=== PATIENT | male | born 1945 | race Caucasian/White ===

== ENCOUNTER 2018-12-18 11:46 | Day surgery (SDC) | payer OTHER ==
[2018-12-13 13:29] VITALS: BMI 25.9
[~2018-12-18 11:46] MED LIST: DEXAMETHASONE SOD PHOSPHATE 10 MG/ML 1 ML VIAL IV ONE; LACTATED RINGERS 1,000 ML IV SCH; ONDANSETRON 4 MG/2 ML VIAL IVP ONE; SCOPOLAMINE 1.5MG/72HR PATCH TRANSDERM ONE; ceFAZolin IN SWFI 2 GM/20 ML SYRINGE IVP ONE; metroNIDAZOLE-NS PMX 500 MG in SALINE 1 100ML.BAG IVPB ONE
[2018-12-18] MEDS ORDERED: LIDOCAINE 1% 20 ML VIAL (10MG/ML) FOR IV START INTRADERMA ONE (12:36)
[2018-12-18] MEDS ORDERED: fentaNYL (PF) 50 MCG/ML 2 ML AMP ONE (12:57)
[2018-12-18] MEDS ORDERED: SUCCINYLCHOLINE CHLORIDE 100 MG/5 ML SYR IV ONE (12:57)
[2018-12-18] MEDS ORDERED: ePHEDrine SULFATE/0.9% NACL/PF 50 MG/5 ML SYRINGE IV ONE (12:57)
[2018-12-18] MEDS ORDERED: NEOSTIGMINE 1 MG/ML 10 ML VIAL ONE (12:57)
[2018-12-18] MEDS ORDERED: LIDOCAINE 1% INJ 10MG/ML (20 ML MDV) ONE (12:57)
[2018-12-18] MEDS ORDERED: PROPOFOL 10 MG/ML 20 ML VIAL IV ONE (12:57)
[2018-12-18] MEDS ORDERED: MIDAZOLAM 2 MG/2 ML VIAL ONE (12:57)
[2018-12-18] MEDS ORDERED: PHENYLEPHRINE-0.9% NACL SYG 1 MG/10 ML SYRINGE ONE (12:57)
[2018-12-18] MEDS ORDERED: DEXAMETHASONE SOD PHOS (MDV) 100 MG/10 ML VIAL ONE (12:57)
[2018-12-18] MEDS ORDERED: ROCURONIUM BROMIDE 10 MG/ML 10 ML VIAL IV ONE (12:57)
[2018-12-18] MEDS ORDERED: GLYCOPYRROLATE 0.2 MG/ML 2 ML VIAL ONE (12:57)
[2018-12-18] MEDS ORDERED: LIDOCAINE 2%-EPI 1:200,000 20 ML VIAL SUBMUCOSAL ONE (13:39)
[2018-12-18] MEDS ORDERED: LACTATED RINGERS 1,000 ML IV ONE (14:03)
[2018-12-18 15:15] VITALS: TEMP 98
[2018-12-18] MEDS: HYDROmorphone 0.5 MG/0.5 ML SYRINGE IVP PRN ×4 (15:50→16:22)
[2018-12-18 16:05] VITALS: RESP 16
[2018-12-18 16:39] VITALS: BP 154/73; PULSE 87
--- NOTE | 2018-12-18 17:07 | OP ---
OPERATIVE REPORT DATE OF PROCEDURE: 12/18/2018. PREOPERATIVE DIAGNOSES: 1. Bilateral mandibular milagros. 2. Maxillary right and left buccal exostoses. 3. Right and left buccal mandibular exostoses. 4. Maxillary and mandibular bilateral alveolar irregularities. POSTOPERATIVE DIAGNOSES: 1. Bilateral mandibular milagros. 2. Maxillary right and left buccal exostoses. 3. Right and left buccal mandibular exostoses. 4. Maxillary and mandibular bilateral alveolar irregularities. PROCEDURE PERFORMED: 1. Removal of the right and left mandibular milagros. 2. Removal of the maxillary right and left buccal exostoses. 3. Removal of the right and left mandibular buccal exostoses. SURGEON: Dr. Mckinney. ANESTHESIA: General via nasal endotracheal intubation. ESTIMATED BLOOD LOSS: 10 mL. FLUIDS: Crystalloid. DRAINS: None. SPECIMENS: None. COMPLICATIONS: None. INDICATIONS FOR PROCEDURE: The patient is a 73-year-old male who was evaluated in the office for irregularities of the maxillary and mandibular alveoli. The patient states that he had oral surgery at the [facility] whereby they attempted to remove the buccal exostoses and mandibular milagros. He states that the job was not completed secondary to intraoperative bleeding. He will now undergo removal of these irregularities of bone prior to fabrication of his axillary mandibular dentures. The risks, benefits, and alternatives of the procedure were reviewed with the patient at length and all of his questions answered to his satisfaction. PROCEDURE IN DETAIL: The patient was taken the operating room and placed on the operating table in the supine position. Next the patient was induced via the IV route and the patient was intubated through the right naris with the aid of a glide scope. Once the tube was in the proper position and it was secured and a general plane of anesthesia was maintained throughout the operative course. The surgeon then approached the operative field and the patient was prepped and draped in usual manner for this procedure. A throat pack was placed notifying both Nursing and Anesthesia. Next 8 mL of 2% lidocaine with 1 to 200,000 parts epinephrine was used to provide a right and left inferior alveolar nerve block buccal block and lingual block in addition to the maxillary buccal and facial infiltration into the vestibule and onto the palate. After waiting an adequate period of time for the local to take effect, a 15 blade was utilized to develop a buccal and lingual flap in the right mandibular quadrant. A subperiosteal dissection ensued and the irregularities of bone and milagros were revealed. At this point, rotary instrumentation was used to remove the milagros and exostoses in addition to any bony irregularities. The wound was then irrigated thoroughly and closed utilizing 4-0 gut in an interrupted manner. Attention was then directed to the upper right quadrant where a crestal incision was made extending from the tuberosity to the midline and a subperiosteal dissection ensued buckling and palatally. The buccal exostoses were then removed utilizing rotary instrumentation under copious irrigation. Once the wound was irrigated thoroughly, the flap was reapproximated utilizing 4 0 gut in an interrupted and running manner. Attention then was directed to the lower left quadrant where a crystal incision was then developed extending from the retromolar pad to the midline and a similar technique with rotary instrumentation was used to remove the bony irregularities. The wound was then irrigated and closed in a similar fashion. Attention was then directed to the upper left, where a similar technique was used to remove the bony irregularities and primary closure of the flap was once again achieved. At this point, no bleeding was noted intraoperatively. The incisions were dry. The throat pack was removed notifying both Nursing and Anesthesia. The patient was then transferred to the postanesthetic care unit breathing spontaneously and hemodynamically stable. MMHAYESL / LAURAN: [id number] / MTDChester
== END 2018-12-18 16:53 | disposition home or self-care (01) ==
LOC: OR 11:46
PROVIDERS: ATTEND Dentist Oral and Maxillofacial Surgery
DX: M27.0 Developmental disorders of jaws (principal); K08.89 Other specified disorders of teeth and supporting structures; I10 Essential (primary) hypertension; M79.7 Fibromyalgia; Z79.899 Other long term (current) drug therapy; Z79.891 Long term (current) use of opiate analgesic; Z79.1 Long term (current) use of non-steroidal anti-inflammatories (NSAID)
CPT/HCPCS: 21031; 21032; J2250; J1100 ×2; J2710; J2405; J2001; J3010; J2370; J0330; J2704; J1170

== ENCOUNTER 2020-05-15 10:51 | Day surgery (SDC) | payer OTHER ==
[2020-05-14 10:44] VITALS: BMI 25.7
[~2020-05-15 10:51] MED LIST changes: -DEXAMETHASONE SOD PHOSPHATE 10 MG/ML 1 ML VIAL IV ONE; +LIDOCAINE 1% (10MG/ML) FOR IV START INTRADERMA PRN; -ONDANSETRON 4 MG/2 ML VIAL IVP ONE; -SCOPOLAMINE 1.5MG/72HR PATCH TRANSDERM ONE; -ceFAZolin IN SWFI 2 GM/20 ML SYRINGE IVP ONE; -metroNIDAZOLE-NS PMX 500 MG in SALINE 1 100ML.BAG IVPB ONE
[2020-05-15 11:28] VITALS: RESP 16; TEMP 97.8
[2020-05-15] MEDS ORDERED: PROPOFOL 10 MG/ML 20 ML VIAL IV ONE (12:10)
[2020-05-15] MEDS ORDERED: LIDOCAINE 1% INJ 10MG/ML (20 ML MDV) ONE (12:10)
--- NOTE | 2020-05-15 12:58 | P.PCN ---
Date of Procedure: 05/15/20 Description of Procedure: BRIEF HISTORY: Patient is a 75-year-old male presented for outpatient colonoscopy for personal history of colon polyps. Remote history of colonoscopy. Denies any change in bowel habits or blood per rectum. PROCEDURE PERFORMED: Colonoscopy with polypectomy. PREOPERATIVE DIAGNOSIS: Personal history of colon polyps, remote history of colonoscopy. ESTIMATED BLOOD LOSS: Minimal. IV sedation per Anesthesia. PROCEDURE: After informed consent was obtained, the patient, was brought into the endoscopy unit. IV sedation was administered by Anesthesia under continuous monitoring. Digital rectal examination was normal. Initially the Olympus CF-190 flexible video colonoscope was then inserted in the rectum, gradually advanced into the cecum without any difficulty. Careful examination was performed as the scope was gradually being withdrawn. Ileocecal valve and the appendiceal orifice were visualized and appeared normal. Prep was excellent. Mucosa of the cecum, ascending colon, transverse colon, descending colon, sigmoid colon, and rectum appeared normal. Small largemouth diverticula throughout the left colon. Moderate internal hemorrhoids. 5 mm transverse colon polyp removed with cold snare polypectomy. Diminutive polyps measuring 2-3 mm removed from the ascending colon, splenic flexure and descending colon with cold forcep polypectomy. 3 rectal polyps measuring 3, 4 and 5 mm in size removed with cold snare polypectomy Retroflexion was performed in the rectum and no lesions were seen. The patient tolerated the procedure well. IMPRESSION: For medium size polyp removed with cold snare polypectomy from the transverse colon and 3 from the rectum. 3 diminutive polyps removed with cold forcep polypectomy from the ascending colon, splenic flexure and descending colon. Mild left colonic diverticulosis. Internal hemorrhoids. RECOMMENDATIONS: Findings of this examination were discussed with the patient . Okay to resume diet. Okay to resume medications. Await pathology from polypectomies. Recommend repeat colonoscopy in 3 years for high risk colon polyps pending pathology from polypectomies.
[2020-05-15 13:24] VITALS: BP 136/66; PULSE 72
== END 2020-05-15 14:03 | disposition home or self-care (01) ==
LOC: ORWHC2ENDO 10:51
PROVIDERS: ATTEND Internal Medicine
DX: Z12.11 Encounter for screening for malignant neoplasm of colon (principal); D12.2 Benign neoplasm of ascending colon; D12.4 Benign neoplasm of descending colon; D12.3 Benign neoplasm of transverse colon; D12.8 Benign neoplasm of rectum; K62.1 Rectal polyp; K57.30 Diverticulosis of large intestine without perforation or abscess without bleeding; K64.8 Other hemorrhoids; I10 Essential (primary) hypertension; F17.200 Nicotine dependence, unspecified, uncomplicated; G89.29 Other chronic pain; Z91.048 Other nonmedicinal substance allergy status; Z86.010 Personal history of colon polyps; Z98.890 Other specified postprocedural states; Z79.899 Other long term (current) drug therapy; Z79.891 Long term (current) use of opiate analgesic; Z79.1 Long term (current) use of non-steroidal anti-inflammatories (NSAID); Z87.19 Personal history of other diseases of the digestive system; Z90.89 Acquired absence of other organs; Z98.41 Cataract extraction status, right eye; Z98.42 Cataract extraction status, left eye; Z97.2 Presence of dental prosthetic device (complete) (partial)
CPT/HCPCS: 88305; 45380; 45385; J2001; J2704

== ENCOUNTER → 2021-11-24 | Outpatient (CLI) | payer MEDICARE ==
[2021-11-24 10:06] LABS: African American GFR (CKD) >90 (>60 ml/min/1.73 sqM); Blood Urea Nitrogen 19 mg/dL (9-20); Non-African American GFR(CKD) >90 (>60 ml/min/1.73 sqM)
== END | disposition home or self-care (01) ==
LOC: RADCTMAIN 08:49
PROVIDERS: ATTEND Urology
DX: R31.0 Gross hematuria (principal)
CPT/HCPCS: 82565; 84520

== ENCOUNTER 2021-12-12 10:48 | Emergency (ER) | payer MEDICARE ==
[2021-12-12 10:53] VITALS: BP 141/74; PULSE 97; RESP 18; TEMP 97.6
--- NOTE | 2021-12-12 11:13 | ED ---
General Adult HPI - General Chief complaint: Recheck/Abnormal Lab/Rx Stated complaint: catheter plugged Time Seen by Provider: 12/12/21 10:55 Source: patient, RN notes reviewed, old records reviewed Mode of arrival: ambulatory Limitations: no limitations - History of Present Illness Initial comments: This is a 76-year-old male who presents emergency Department. Patient states he had Montgomery catheter placed yesterday after he had a bladder tumor resected. Patient states this morning the catheter is no longer draining and so he comes into the emergency department to have it irrigated and/or possibly replace. Patient states started on Keflex states 3 out of 7 on that. Patient denies any new back pain patient denies any fever chills. Patient denies any abdominal pain. - Related Data Home Medications Medication Instructions Recorded Confirmed Celecoxib [CeleBREX] 200 mg PO HS 12/13/18 05/15/20 DULoxetine HCL [Cymbalta] 30 mg PO TID 12/13/18 05/15/20 Diltiazem HCl [Diltiazem 12Hr ER] 120 mg PO BID 12/13/18 05/15/20 HYDROcodone/APAP 10-325MG [[place] 2 tab PO TID 12/13/18 05/15/20 10-325] Sennosides [Senokot] 17.2 mg PO HS 12/13/18 05/15/20 Vit C/E/Zn/Coppr/Lutein/Zeaxan 1 each PO BID 12/13/18 05/15/20 [Preservision Areds 2 Softgel] Brimonidine Eye Drop 1 drop BOTH EYES QA 05/14/20 05/15/20 Calcium Carbonate/Vitamin D3 1 each PO DAILY 05/14/20 05/15/20 [Calcium 500-Vit D3 200 Tablet] Cortisone Cream 1 % 1 applicate TOPICAL DIRECTED 05/14/20 05/15/20 Gabapentin [Neurontin] 300 mg PO TID 05/14/20 05/15/20 Latanoprost/Pf [Latanoprost 0.005% 1 drop BOTH EYES HS 05/14/20 05/15/20 Eye Drop] Miralax Powder 1 applicate PO HS 05/14/20 05/15/20 Nicotine Polacrilex [Nicotine Gum] 2 mg BUCCAL DIRECTED 05/14/20 05/15/20 Sildenafil Citrate [Viagra] 100 mg PO ONCE PRN 05/14/20 05/15/20 Allergies Allergy/AdvReac Type Severity Reaction Status Date / Time nicotine patch AdvReac cardiac Uncoded 05/15/20 11:27 issues Review of Systems ROS Statement: Those systems with pertinent positive or pertinent negative responses have been documented in the HPI. ROS Other: All systems not noted in ROS Statement are negative. 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", has protruding abdomen due to loss of muscle tissue, scoliosis, frequent falls History of Any Multi-Drug Resistant Organisms: None Reported Past Surgical History: Hernia Repair, Tonsillectomy Additional Past Surgical History / Comment(s): kimmie cataracts, two bone marrow biopsies, kimmie blepharoplasty, oral surgery for dental extractions (that caused damage to lower palate), rt inguinal hernia, Past Anesthesia/Blood Transfusion Reactions: No Reported Reaction Additional Past Anesthesia/Blood Transfusion Reaction / Comment(s): can not lay prone or supine due to DISH Past Psychological History: Depression, PTSD Smoking Status: Current every day smoker - Past Family History Father Family Medical History: Unable to Obtain Mother Family Medical History: Cancer Additional Family Medical History / Comment(s): breast Brother(s) Family Medical History: Cancer Additional Family Medical History / Comment(s): prostate General Exam - General Exam Comments Initial Comments: GENERAL: Patient is well-developed and well-nourished. Patient is nontoxic and well- hydrated and is in no acute distress. EYES: The sclera were anicteric and conjunctiva were pink and moist. Extraocular movements were intact and pupils were equal round and reactive to light. ABDOMEN: Soft and nontender with normal bowel sounds. SKIN: Skin is clear with no lesions or rashes and otherwise unremarkable. NEUROLOGIC: Patient is alert and oriented x3. Cranial nerves II through XII are grossly intact. MUSCULOSKELETAL: Normal extremities with adequate strength and full range of motion. PSYCHIATRIC: Normal psychiatric evaluation. Limitations: no limitations Course Vital Signs 12/12/21 10:50 Temperature 97.6 F Pulse Rate 97 Respiratory 18 Rate Blood Pressure 141/74 O2 Sat by Pulse 96 Oximetry Medical Decision Making - Medical Decision Making Patient's catheter was flushed and started draining appropriately. Disposition Clinical Impression: Montgomery catheter problem Disposition: HOME SELF-CARE Instructions (If sedation given, give patient instructions): *Surgery [facility] - [facility] Catheter Instructions Is patient prescribed a controlled substance at d/c from ED?: No Referrals: Nonstaff,Physician [Primary Care Provider] - 1-2 days Time of Disposition: 11:18
== END 2021-12-12 11:39 | disposition home or self-care (01) ==
LOC: EC 10:48
DX: T83.091A Other mechanical complication of indwelling urethral catheter, initial encounter (principal); F17.200 Nicotine dependence, unspecified, uncomplicated; I10 Essential (primary) hypertension; M79.7 Fibromyalgia; M19.90 Unspecified osteoarthritis, unspecified site; Z88.8 Allergy status to other drugs, medicaments and biological substances; Z79.899 Other long term (current) drug therapy; Z79.1 Long term (current) use of non-steroidal anti-inflammatories (NSAID); Z87.442 Personal history of urinary calculi
CPT/HCPCS: 99283

== ENCOUNTER 2022-01-28 08:10 | Outpatient (CLI) | payer MEDICARE, OTHER ==
[2022-01-28] MEDS ORDERED: LACTATED RINGERS 1,000 ML IV SCH (08:16)
[2022-01-28] MEDS ORDERED: LIDOCAINE 1% (10MG/ML) FOR IV START INTRADERMA PRN (08:16)
[2022-01-28 08:39] VITALS: TEMP 97.6
[2022-01-28 09:36] LABS: African American GFR (CKD) >90 (>60 ml/min/1.73 sqM); Blood Urea Nitrogen 17 mg/dL (9-20); Non-African American GFR(CKD) 86 (>60 ml/min/1.73 sqM)
[2022-01-28] MEDS ORDERED: KETAMINE 10 MG/ML 20 ML VIAL ONE (09:40)
[2022-01-28] MEDS ORDERED: HYDROmorphone (PF) 1 MG/ML ONE (09:40)
[2022-01-28] MEDS ORDERED: PROPOFOL 10 MG/ML 20 ML VIAL IV ONE (09:40)
[2022-01-28] MEDS ORDERED: DEXMEDETOMIDINE 200 MCG/2 ML VIAL IV ONE (09:40)
[2022-01-28 10:56] VITALS: BP 147/67; PULSE 64; RESP 18
--- NOTE | 2022-01-28 11:03 | CT ---
EXAMINATION TYPE: CT ChestAbdPelvis w con CT DLP: 1693.1 mGycm, Automated exposure control for dose reduction was used. DATE OF EXAM: 01/28/2022 10:37 AM COMPARISON: None. CLINICAL INDICATION:Male, 76 years old with history of [id number] bladder cancer Technique: Multiple axial images of the chest, abdomen, and pelvis were obtained. Two-dimensional cor onal and sagittal reconstructions were obtained. Contrast used:70 ML mL of Isovue 300 with IV Contrast, Oral contrast used: without Oral Contrast Findings: CHEST: LUNGS/ PLEURA: No evidence of focal consolidation, pneumothorax or pleural effusion. AIRWAY: Patent and unremarkable. HEART: Heart is mildly enlarged for size. There is mild coronary artery atherosclerosis. MEDIASTINUM: No gross evidence of adenopathy. VASCULATURE: No aortic aneurysm. Scattered atherosclerosis of the arterial vasculature. MUSCULOSKELETAL: No acute osseous abnormalities. Increased kyphosis of the thoracic spine worse at T1 0-T11 adjoining endplates with bridging calcification of the anterior longitudinal ligament. SOFT TISSUES/LYMPH NODES: Unremarkable. LOWER NECK: No significant findings. ABDOMEN: ABDOMEN LIVER: Unremarkable GALLBLADDER AND BILE DUCTS: Unremarkable. PANCREAS: Unremarkable. SPLEEN: Unremarkable. ADRENAL GLANDS: Left adrenal gland nodular thickening measuring up to 12 mm. KIDNEYS AND URETERS: Nonobstructing calculi bilaterally measuring up to 7 mm on the right and 5 mm on the left. PELVIS BLADDER: Asymmetric right bladder wall thickening measuring up to 10 mm in thickness. There is slight haziness to the adjacent fat. REPRODUCTIVE: Unremarkable. ABDOMEN & PELVIS STOMACH AND BOWEL: Moderate to large stool burden throughout the colon. There are a few scattered emmett rosa diverticula. No evidence of bowel obstruction. PERITONEUM: No evidence of pneumoperitoneum or free fluid. VASCULATURE: Moderate atherosclerotic calcifications are present throughout the abdominal aorta and i ts branches. MUSCULOSKELETAL: Bridging anterior longitudinal calcified ligament with multilevel disc degeneration changes with osteophytes, and increased kyphosis of the thoracic spine. LYMPH NODES: No gross evidence for lymphadenopathy. SOFT TISSUE/ABDOMINAL WALL: Unremarkable IMPRESSION: 1. Slight asymmetric right bladder wall thickening with subtle haziness to the fat bladder wall inte rface which may represent invasion to surrounding tissues. No evidence for lymphadenopathy within the visualized chest abdomen or pelvis. 2. Diffuse idiopathic skeletal hyperostosis. 3. Moderate to large stool burden throughout the colon. 4. Colonic diverticulosis. 5. Nonobstructing bilateral renal calculi.
[2022-01-28] MEDS ORDERED: LACTATED RINGERS 1,000 ML IV ONE (11:08)
== END 2022-01-28 11:16 | disposition home or self-care (01) ==
LOC: OR 08:10
PROVIDERS: ATTEND Internal Medicine Hematology & Oncology
DX: C67.9 Malignant neoplasm of bladder, unspecified (principal); M48.19 Ankylosing hyperostosis [Forestier], multiple sites in spine; K57.30 Diverticulosis of large intestine without perforation or abscess without bleeding
CPT/HCPCS: 82565; 84520; 71260; 74177; J1170; J2704; Q9967

== ENCOUNTER 2022-06-17 11:47 | Outpatient (CLI) | payer OTHER ==
[2022-06-16 11:13] VITALS: BMI 23.9
[~2022-06-17 11:47] MED LIST changes: -LIDOCAINE 1% (10MG/ML) FOR IV START INTRADERMA PRN
[2022-06-17 12:37] VITALS: RESP 18; TEMP 97.3
[2022-06-17] MEDS ORDERED: ONDANSETRON 4 MG/2 ML VIAL ONE (12:38)
[2022-06-17] MEDS ORDERED: ONDANSETRON 4 MG/2 ML VIAL IVP ONE (12:43)
[2022-06-17 15:07] LABS: African American GFR (CKD) >90 (>60 ml/min/1.73 sqM); Blood Urea Nitrogen 17 mg/dL (9-20); Non-African American GFR(CKD) >90 (>60 ml/min/1.73 sqM)
[2022-06-17] MEDS ORDERED: KETAMINE 10 MG/ML 20 ML VIAL ONE (15:25)
[2022-06-17] MEDS ORDERED: MIDAZOLAM 2 MG/2 ML VIAL ONE (15:25)
[2022-06-17] MEDS ORDERED: IV FLUID CONTINUATION 1,000 ML IV ONE (15:58)
--- NOTE | 2022-06-17 16:10 | CT ---
EXAMINATION TYPE: CT ChestAbdPelvis w con DATE OF EXAM: 06/17/2022 COMPARISON: 01/28/2022 HISTORY: bladder CA CT DLP: 1647 mGycm CONTRAST: CT scan of the chest, abdomen and pelvis is performed without Oral Contrast and with IV Contrast, pat ient injected with 100 mL of Isovue 300. CT Chest: LUNGS: Groundglass infiltrates seen posteriorly within the lower lobes could reflect acute inflammato ry process. No pulmonary nodule or mass is detected. No pleural effusion or CT evidence of interstit ial lung disease. MEDIASTINUM: Thoracic aorta is of normal caliber. The heart is mildly enlarged. No evidence for me diastinal mass or adenopathy. HILAR STRUCTURES: No evidence for mass. No hilar adenopathy is appreciated. OTHER: No significant abnormality. CONTRAST CT ABDOMEN AND PELVIS FINDINGS: LIVER/GB: No calcified gallstones. No space occupying hepatic lesion. Biliary tree is of normal ca liber. PANCREAS: No inflammation. No distinct mass. SPLEEN: No splenic enlargement. No lesion seen. ADRENALS: Stable thickening right adrenal gland. Left adrenal gland is unremarkable. KIDNEYS/BLADDER: No hydronephrosis. Bilateral nonobstructing renal calculi are stable. No distinct r enal mass. Urinary bladder wall thickening is improved relative to the prior study. BOWEL: Normal appendix. Normal bowel caliber. No inflammation. GENITAL ORGANS: No gross abnormality. LYMPH NODES: No greater than 1cm abdominal or pelvic lymph nodes are appreciated. AORTA: No significant abnormality. OSSEOUS STRUCTURES: Severe degenerative change of the thoracic and lumbar spine is accentuated kyphos is as previously. OTHER: No significant additional abnormality is seen. IMPRESSION: 1. No evidence for metastatic disease. 2. Urinary bladder wall thickening seen previously has resolved at this time.
[2022-06-17 16:24] VITALS: BP 151/72; PULSE 90
== END 2022-06-17 16:34 | disposition home or self-care (01) ==
LOC: OR 11:47
PROVIDERS: ATTEND Internal Medicine Hematology & Oncology
DX: C67.9 Malignant neoplasm of bladder, unspecified (principal)
CPT/HCPCS: 82565; 84520; 71260; 74177; J2250; J2405; Q9967

== ENCOUNTER 2022-09-20 10:09 | Day surgery (SDC) | payer OTHER ==
[~2022-09-20 10:09] MED LIST changes: +LIDOCAINE 1% (10MG/ML) FOR IV START INTRADERMA PRN
[2022-09-20] MEDS ORDERED: ONDANSETRON 4 MG/2 ML VIAL ONE (10:44)
[2022-09-20 10:51] VITALS: TEMP 97.1
[2022-09-20] MEDS ORDERED: ONDANSETRON 4 MG/2 ML VIAL IVP ONE (10:59)
[2022-09-20] MEDS ORDERED: KETAMINE 10 MG/ML 20 ML VIAL ONE (12:34)
[2022-09-20] MEDS ORDERED: MIDAZOLAM 2 MG/2 ML VIAL ONE (12:34)
[2022-09-20] MEDS ORDERED: IV FLUID CONTINUATION 1,000 ML IV ONE (13:13)
[2022-09-20 13:16] VITALS: RESP 16
[2022-09-20 13:28] VITALS: BP 130/72; PULSE 72
--- NOTE | 2022-09-21 08:15 | CT ---
EXAMINATION TYPE: CT ChestAbdPelvis w con DATE OF EXAM: 09/20/2022 COMPARISON: 06/17/2022 HISTORY: Hx bladder ca. Pt cannot lay flat, study done under sedation CT DLP: 1163.70 mGycm Automated exposure control for dose reduction was used. CONTRAST: CT scan of the chest, abdomen and pelvis is performed without Oral Contrast and with IV Contrast, pat ient injected with 100 mL of Isovue 300. FINDINGS: LUNGS: There are persistent areas of groundglass opacification bilaterally which could be on the basi s of atelectasis. No pneumothorax or pleural effusion. Emphysematous changes are noted. There is a ne w nodule seen involving the left lower lobe measuring 1.1 cm on axial image 36. MEDIASTINUM: The heart is markedly enlarged. There is coronary artery calcification. No pericardial e ffusion. No pathologic adenopathy. LIVER/GB: No significant abnormality is appreciated. PANCREAS: No significant abnormality is seen. SPLEEN: No significant abnormality is seen. ADRENALS: Stable bilateral nonspecific adrenal thickening unchanged from prior exam.. KIDNEYS: A nonobstructing right-sided renal calculi bilaterally. There are hypodense lesions involvin g the right kidney most likely in the basis of simple cyst BOWEL: Diverticulosis of the colon with extensive retained fecal debris correlate for constipation. REPRODUCTIVE ORGANS: No gross abnormality seen. LYMPH NODES: No greater than 1 cm abdominal or pelvic lymph nodes are appreciated. OSSEOUS STRUCTURES: Scoliosis of the spine with multilevel severe degenerative disc disease. Discogen ic marrow changes seen in the mid thoracic spine and there is a chronic appearing mild superior endpl ate compression fracture at L3. Multilevel facet arthropathy. No definite destructive change is seen. Suspect a chronic mild superior endplate compression fracture of S1. Anterior flowing spurs suggest DISH. OTHER: Atherosclerotic changes of the aorta. BLADDER: Bladder appears anechoic with no definite wall thickening by CT scanning. IMPRESSION: 1. There is a new 1.1 cm left lower lobe pulmonary nodule at the left lung base axial image 37. Recom mend PET scan. 2. COPD with stable groundglass densities likely on the basis of respiratory atelectasis correlate cl inically to exclude chronic pneumonitis. 3. Bilateral nonobstructing renal calculi. 4. Chronic appearing mild endplate compression fractures S1 and L3 with severe multilevel degenerativ e disc disease and findings suggestive of DISH.
== END 2022-09-20 13:48 | disposition home or self-care (01) ==
LOC: OR 10:09 → EDSTATUS 11:30 → OR 13:48
PROVIDERS: ATTEND Internal Medicine Hematology & Oncology
DX: I25.10 Atherosclerotic heart disease of native coronary artery without angina pectoris (principal); R91.8 Other nonspecific abnormal finding of lung field; J98.11 Atelectasis; J43.9 Emphysema, unspecified; I51.7 Cardiomegaly; N20.0 Calculus of kidney; Z85.51 Personal history of malignant neoplasm of bladder; Z92.21 Personal history of antineoplastic chemotherapy; M48.57XA Collapsed vertebra, not elsewhere classified, lumbosacral region, initial encounter for fracture; M47.819 Spondylosis without myelopathy or radiculopathy, site unspecified; M41.9 Scoliosis, unspecified; M45.9 Ankylosing spondylitis of unspecified sites in spine; M51.9 Unspecified thoracic, thoracolumbar and lumbosacral intervertebral disc disorder; K57.30 Diverticulosis of large intestine without perforation or abscess without bleeding; I10 Essential (primary) hypertension; M79.7 Fibromyalgia; Z79.51 Long term (current) use of inhaled steroids; Z79.899 Other long term (current) drug therapy; Z79.1 Long term (current) use of non-steroidal anti-inflammatories (NSAID); Z88.8 Allergy status to other drugs, medicaments and biological substances
CPT/HCPCS: 96376; 96365; 96375; 99285; 74177; 71260; J2250; J2405; Q9967; 96361; 96366

== ENCOUNTER → 2022-10-28 | Outpatient (CLI) | payer OTHER ==
[2022-10-28 16:16] LABS: T4, Free (Free Thyroxine) 1.45 ng/dL (0.800-1.800)
== END | disposition home or self-care (01) ==
LOC: LABWHC1 10:20
PROVIDERS: ATTEND Psychiatry & Neurology Neurology
DX: R53.83 Other fatigue (principal); R41.3 Other amnesia
CPT/HCPCS: 36415; 82607; 84439; 84443; 84481

== ENCOUNTER 2022-12-22 12:10 | Day surgery (SDC) | payer OTHER ==
[2022-12-17 14:14] VITALS: BMI 22.1
[2022-12-22 12:58] VITALS: TEMP 97.8
[2022-12-22] MEDS ORDERED: ONDANSETRON 4 MG/2 ML VIAL ONE (13:08)
[2022-12-22 13:50] LABS: African American GFR (CKD) >90 (>60 ml/min/1.73 sqM); Blood Urea Nitrogen 17 mg/dL (9-20); Non-African American GFR(CKD) >90 (>60 ml/min/1.73 sqM)
[2022-12-22] MEDS ORDERED: KETAMINE 10 MG/ML 20 ML VIAL ONE (14:00)
[2022-12-22] MEDS ORDERED: MIDAZOLAM 2 MG/2 ML VIAL ONE (14:00)
[2022-12-22] MEDS ORDERED: IV FLUID CONTINUATION 700 ML IV ONE (14:27)
[2022-12-22 14:48] VITALS: BP 137/72; PULSE 84; RESP 20
--- NOTE | 2022-12-22 15:03 | CT ---
EXAMINATION TYPE: CT ChestAbdPelvis w con DATE OF EXAM: 12/22/2022 COMPARISON: 09/20/2022 HISTORY: bladder ca f/u CT DLP: 1192.3 mGycm CONTRAST: CT scan of the chest, abdomen and pelvis is performed without Oral Contrast and with IV Contrast, pat ient injected with 100 mL of Isovue 300. CT Chest: LUNGS: Groundglass dependent infiltrates persist which may reflect atelectasis. Mild upper lobe emphy sematous blebs noted. Previously noted left lower lobe pulmonary nodule is poorly visualized at this time. Nodular density is again noted in a similar location measuring 5.8 mm versus 10.7 mm previously . No additional nodules are present at this time. No pleural effusion or CT evidence of interstitial lung disease. MEDIASTINUM: Thoracic aorta is of normal caliber. The heart is enlarged. No evidence for mediastin al mass or adenopathy. HILAR STRUCTURES: No evidence for mass. No hilar adenopathy is appreciated. OTHER: No significant abnormality. CONTRAST CT ABDOMEN AND PELVIS FINDINGS: LIVER/GB: No calcified gallstones. No space occupying hepatic lesion. Biliary tree is of normal ca liber. PANCREAS: No inflammation. No distinct mass. SPLEEN: No splenic enlargement. No lesion seen. ADRENALS: No nodule. No thickening. KIDNEYS/BLADDER: No hydronephrosis. 7 mm calculus lower pole right kidney as well as 7 mm calculus l ower pole left kidney. 1.5 cm simple cyst upper pole right kidney. No distinct renal mass. BOWEL: Normal appendix. Normal bowel caliber. No inflammation. GENITAL ORGANS: No gross abnormality. LYMPH NODES: No greater than 1cm abdominal or pelvic lymph nodes are appreciated. AORTA: No significant abnormality. OSSEOUS STRUCTURES: Chronic compression deformities and degenerative changes lumbar spine. OTHER: No significant additional abnormality is seen. IMPRESSION: 1. Previously noted left lower lobe pulmonary nodule is poorly visualized at this time. Nodular densi ty is again noted in a similar location measuring 5.8 mm versus 10.7 mm previously. No additional nod ules are present at this time. 2. COPD with stable groundglass density seen dependently. 3. No definite evidence of metastatic disease at this time.
== END 2022-12-22 15:10 ==
LOC: OR 12:10
PROVIDERS: ATTEND Internal Medicine Hematology & Oncology
DX: C67.9 Malignant neoplasm of bladder, unspecified (principal); J44.9 Chronic obstructive pulmonary disease, unspecified; I10 Essential (primary) hypertension; G47.33 Obstructive sleep apnea (adult) (pediatric); Z79.82 Long term (current) use of aspirin; Z79.899 Other long term (current) drug therapy; Z98.890 Other specified postprocedural states; Z90.89 Acquired absence of other organs
CPT/HCPCS: 82565; 84520; 71260; 74177; J2250; J2405; Q9967

== ENCOUNTER 2023-05-02 13:23 | Outpatient (CLI) | payer OTHER ==
[~2023-05-02 13:23] MED LIST changes: +DEXAMETHASONE SOD PHOSPHATE 4 MG/ML 1 ML VIAL IV ONE; +HYDROmorphone 0.5 MG/0.5 ML SYRINGE IVP PRN; +MIDAZOLAM 2 MG/2 ML VIAL IV PRN; +ONDANSETRON 4 MG/2 ML VIAL IVP ONE
[2023-05-02 14:21] VITALS: TEMP 97
[2023-05-02 14:24] LABS: African American GFR (CKD) >90 (>60 ml/min/1.73 sqM); Blood Urea Nitrogen 19 mg/dL (9-20); Non-African American GFR(CKD) >90 (>60 ml/min/1.73 sqM)
[2023-05-02] MEDS ORDERED: MIDAZOLAM 2 MG/2 ML VIAL ONE (14:40)
[2023-05-02] MEDS ORDERED: KETAMINE HCL IN 0.9 % NACL 50 MG/5 ML SYRINGE ONE (14:40)
[2023-05-02 15:20] VITALS: RESP 16
[2023-05-02 16:01] VITALS: BP 143/84; PULSE 69
--- NOTE | 2023-05-04 16:56 | CT ---
EXAMINATION TYPE: CT ChestAbdPelvis w con DATE OF EXAM: 05/02/2023 INDICATION: Bladder Cancer COMPARISON: 12/22/2022 CT DLP: 1379.9 mGycm CONTRAST: Performed without Oral Contrast and with IV Contrast, patient injected with 100 cc mL of Isovue 300. TECHNIQUE: Axial images at 5 mm thick sections. Reconstructed images in the coronal plane. Delayed images through the kidneys. FINDINGS: CT CHEST: Portion of the thyroid visualized is normal. Minimal increased lung markings due to the dependent lung bases. Correlate for mild subsegmental atel ectasis. Some early pulmonary edema could be considered within the differential. No enlarged mediastinal or hilar adenopathy is evident. The ascending aorta diameter at the level of the main pulmonary artery is 3.2 cm. The main pulmonary artery diameter at the bifurcation is 3.[address] ABDOMEN: Liver: Normal Spleen: Normal Pancreas: Normal Adrenal glands: There is mild thickening of the bilateral adrenal glands. The right measures 1.4 cm a nd the left measures 1.2 cm. This appears stable from comparison. Gallbladder: Normal Kidneys: No masses are evident. No hydronephrosis is present. There is a 1.7 cm cortical renal cyst at the superior lateral pole right kidney. Some early excretion may be present. Definite renal ston es are not identified. No Obstruction is identified. Aorta: Vascular calcification is within the aorta. Inferior vena cava: Normal. CT PELVIS: Loops of bowel within the abdomen and pelvis are normal. Multiple scattered diverticula through the sigmoid colon. No acute diverticulitis is evident. There are loops of bowel which are incompletely distended or lack oral contrast limiting their evaluation. Appendix: Not identified. No dilated tubular structure or inflammatory changes evident. Urinary bladder: No focal wall thickening is evident. No diffuse wall thickening is identified. No ob vious filling defects evident Genitourinary structures: Prostate appears normal Osseous structures: No suspicious lytic or sclerotic lesions. IMPRESSION: 1. No suspicious changes to suggest recurrent or metastatic urinary bladder cancer
== END 2023-05-02 15:53 | disposition home or self-care (01) ==
LOC: RADCTMAIN 13:23
PROVIDERS: ATTEND Internal Medicine
DX: C67.9 Malignant neoplasm of bladder, unspecified (principal); I10 Essential (primary) hypertension; M15.0 Primary generalized (osteo)arthritis; Z71.3 Dietary counseling and surveillance
CPT/HCPCS: 82565; 84520; 71260; 74177; J2250; Q9967

== ENCOUNTER 2023-09-19 11:12 | Outpatient (CLI) | payer OTHER ==
[2023-09-19] MEDS: LACTATED RINGERS 1,000 ML IV ONE (11:36)
[2023-09-19] MEDS ORDERED: ONDANSETRON 4 MG/2 ML VIAL ONE (12:13)
[2023-09-19] MEDS: ONDANSETRON 4 MG/2 ML VIAL IVP ONE (12:17)
[2023-09-19] MEDS: fentaNYL (PF) 50 MCG/ML 2 ML AMP IVP ONE (12:18)
[2023-09-19 12:19] LABS: African American GFR (CKD) >90 (>60 ml/min/1.73 sqM); Blood Urea Nitrogen 21 mg/dL (9-20); Non-African American GFR(CKD) 85 (>60 ml/min/1.73 sqM)
[2023-09-19 12:21] VITALS: RESP 16; TEMP 98.2
[2023-09-19] MEDS ORDERED: MIDAZOLAM 2 MG/2 ML VIAL ONE (12:39)
[2023-09-19] MEDS ORDERED: KETAMINE HCL IN 0.9 % NACL 50 MG/5 ML SYRINGE ONE (12:39)
--- NOTE | 2023-09-19 13:53 | CT ---
EXAMINATION: CT CHEST, ABDOMEN AND PELVIS WITH IV CONTRAST DATE OF EXAMINATION: 09/19/2023. COMPARISON: Multiple previous with the most recent from 05/02/2023.. INDICATION: Follow-up for bladder cancer. PROCEDURE: Axial CT of the chest, abdomen and pelvis was performed following the intravenous adminis tration of 100 ml Isovue 300. Coronal and sagittal reformats were performed. CT dose lowering techni ques were used, to include: automated exposure control, adjustment for patient size, and/or use of it erative reconstruction. FINDINGS: CHEST: Mediastinum and Alvina: There is no axillary, mediastinal or hilar lymphadenopathy. Pleural and Pericardial spaces: There are no pleural or pericardial effusions. Cardiovascular: There is moderate vascular calcification mild plaque seen throughout the thoracic aor ta without evidence of aneurysmal dilation. Moderate patchy coronary artery calcifications are otherw ise seen. Pulmonary Artery: There are no central pulmonary arterial filling defects. Lung Parenchyma and Airways: Mild diffuse centrilobular emphysema. There are some patchy parenchymal changes seen throughout the lungs bilaterally which are favored to be atelectasis. There is no focal area of consolidation. No significant pulmonary lesions are otherwise identified. ABDOMEN: Liver and Biliary system: Normal. Adrenal glands: Thickening of the adrenal glands is unchanged when compared to the previous examinat ion.. Kidneys and ureters: Unchanged cyst in the upper pole of the right kidney. No suspicious renal lesio ns are otherwise identified. Spleen: Normal. Pancreas: Normal. Gallbladder: Normal. Lymph nodes, Peritoneum and mesentery: There is no mesenteric or retroperitoneal lymphadenopathy. Gastrointestinal tract: There are no dilated loops of bowel or free intraperitoneal air. . Colonic diverticulosis is seen without evidence of diverticulitis which is significant in the sigmoid region. Aorta/IVC: There is significant vascular calcification throughout the abdominal aorta without evide nce of aneurysmal dilation or dissection.. IVC normal. Abdominal wall: Normal. PELVIS: Fluid: There is no free fluid in the pelvis. Lymph Nodes: There is no pelvic or inguinal lymphadenopathy.. Urinary bladder: Normal. BONES: Scattered degenerative changes are seen throughout the spine. There is increased thoracic kyp hosis. Bridging osteophytes and ossification of the anterior longitudinal ligament is otherwise seen. Compression deformity of the L3 vertebral body is likely chronic. There are no acute osseous abnorma lities.. ADDITIONAL SIGNIFICANT FINDINGS: None. IMPRESSION: 1. No definitive evidence of recurrent bladder cancer or metastatic disease. 2. Incidental chronic changes otherwise noted above.
[2023-09-19 14:05] VITALS: BP 150/68; PULSE 66
== END 2023-09-19 14:11 | disposition home or self-care (01) ==
LOC: RADCTMAIN 11:12
PROVIDERS: ATTEND Internal Medicine
DX: C67.9 Malignant neoplasm of bladder, unspecified (principal); I10 Essential (primary) hypertension; M15.0 Primary generalized (osteo)arthritis; Z71.3 Dietary counseling and surveillance
CPT/HCPCS: 82565; 84520; 71260; 74177; J2405; J3010; Q9967

== ENCOUNTER 2024-07-15 15:44 | Inpatient (IN) | payer OTHER, MEDICARE ==
--- NOTE | 2024-07-15 16:19 | ED ---
Altered Mental Status HPI - General Chief Complaint: Neuro Symptoms/Deficit Stated Complaint: AMS Time Seen by Provider: 07/15/24 16:16 Source: EMS, RN notes reviewed, old records reviewed, Caregiver Mode of arrival: EMS Limitations: altered mental status - History of Present Illness Initial Comments: This is a 79-year-old male to the ER for evaluation of altered mental status patient found to be significant fevers today throughout the day with increased thirst. Dysuria and cloudy urine, patient also having difficulty breathing, he is a poor historian secondary to clinical condition history obtained from family at bedside MD Complaint: altered mental status, confusion, decreased responsiveness -: days(s) Severity: moderate Consistency of Symptoms: getting worse Context: history of similar presentation Associated Symptoms: cough, shortness of breath, weakness, foul smelling urine Treatments Prior to Arrival: oxygen - Related Data Home Medications Medication Instructions Recorded Confirmed DULoxetine HCL [Cymbalta] 30 mg PO TID 12/13/18 07/15/24 Vit C/E/Zn/Coppr/Lutein/Zeaxan 1 cap PO DAILY 12/13/18 07/15/24 [Preservision Areds 2 Softgel] Latanoprost/Pf [Latanoprost 0.005% 1 drop BOTH EYES HS 05/14/20 07/15/24 Eye Drop] Tamsulosin HCl [Flomax] 0.4 mg PO DAILY 05/10/22 07/15/24 Brimonidine Tartrate [Alphagan P 1 drop BOTH EYES BID 06/16/22 07/15/24 0.2% Ophth Soln] Artificial Tears-Hypromellose 1 drop BOTH EYES QID PRN 07/15/24 07/15/24 [Artificial Tear Drops] Carbidopa-Levodopa 25-100 mg 1 tab PO TID 07/15/24 07/15/24 [Sinemet 25-100 mg] Cholecalciferol (Vitamin D3) 50 mcg PO BID 07/15/24 07/15/24 [Vitamin D3 (50 Mcg = 2000 Iu)] Donepezil [Aricept] 10 mg PO HS 07/15/24 07/15/24 Lactose-Reduced Food [Ensure Plus] 1 can PO BID 07/15/24 07/15/24 Previous Rx's Medication Instructions Recorded Aspirin 81 mg PO DAILY tab 07/23/24 Atorvastatin [Lipitor] 40 mg PO HS tab 07/23/24 Furosemide [Lasix] 20 mg PO DAILY #30 tab 07/23/24 Gabapentin [Neurontin] 200 mg PO BID #6 cap 07/23/24 HYDROcodone/APAP 10-325MG [Randolph 1 tab PO Q8H #9 tab 07/23/24 10-325] Losartan [Cozaar] 25 mg PO DAILY tab 07/23/24 Metoprolol Succinate (ER) [Toprol 25 mg PO DAILY tab 07/23/24 XL] Spironolactone [Aldactone] 25 mg PO DAILY tab 07/23/24 Allergies Allergy/AdvReac Type Severity Reaction Status Date / Time nicotine [From Nicoderm CQ] AdvReac cardiac Verified 07/15/24 20:04 issues nicotine patch AdvReac cardiac Uncoded 09/14/23 14:02 issues Review of Systems ROS Statement: Those systems with pertinent positive or pertinent negative responses have been documented in the HPI. ROS Other: All systems not noted in ROS Statement are negative. 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 bladder cancer dx. in November 2021-chemo History of Any Multi-Drug Resistant Organisms: None Reported Past Surgical History: Hernia Repair, Tonsillectomy Additional Past Surgical History / Comment(s): kimmie cataracts, two bone marrow biopsies, kimmie blepharoplasty, oral surgery for dental extractions (that caused damage to lower palate), rt inguinal hernia bladder tumor removed Past Anesthesia/Blood Transfusion Reactions: No Reported Reaction Additional Past Anesthesia/Blood Transfusion Reaction / Comment(s): can not lay prone or supine due to DISH Past Psychological History: Anxiety, Depression, PTSD Smoking Status: Current every day smoker - Past Family History Father History Unknown: Yes Additional Family Medical History / Comment(s): did not know father Mother Family Medical History: Cancer Additional Family Medical History / Comment(s): breast Brother(s) Family Medical History: Cancer Additional Family Medical History / Comment(s): prostate- General Exam Limitations: altered mental status, physical limitation General appearance: alert, anxious, in distress Head exam: Present: atraumatic, normocephalic, normal inspection Eye exam: Present: normal appearance, PERRL, EOMI. Absent: scleral icterus, conjunctival injection, periorbital swelling ENT exam: Present: normal exam, mucous membranes moist Neck exam: Present: normal inspection. Absent: tenderness, meningismus, lymphadenopathy Respiratory exam: Present: respiratory distress, decreased breath sounds, prolonged expiratory. Absent: wheezes, rales, rhonchi, stridor Cardiovascular Exam: Present: normal rhythm, tachycardia, normal heart sounds. Absent: systolic murmur, diastolic murmur, rubs, gallop, clicks GI/Abdominal exam: Present: soft, normal bowel sounds. Absent: distended, tenderness, guarding, rebound, rigid Extremities exam: Present: normal inspection, full ROM, normal capillary refill. Absent: tenderness, pedal edema, joint swelling, calf tenderness Back exam: Present: normal inspection Neurological exam: Present: alert, oriented X3, CN II-XII intact Psychiatric exam: Present: normal affect, normal mood Skin exam: Present: warm, dry, intact, normal color. Absent: rash Course Vital Signs 07/15/24 07/15/24 07/15/24 15:45 19:48 20:29 Temperature 98.2 F Pulse Rate 110 H 101 H 102 H Respiratory 18 18 18 Rate Blood Pressure 108/56 89/58 100/65 O2 Sat by Pulse 92 L 94 L 93 L Oximetry 07/15/24 07/15/24 07/16/24 21:21 22:00 00:00 Temperature 98.2 F 98.2 F Pulse Rate 101 H 98 85 Respiratory 18 18 18 Rate Blood Pressure 94/66 101/64 99/66 O2 Sat by Pulse 94 L 93 L 92 L Oximetry 07/16/24 07/16/24 07/16/24 03:00 06:00 15:06 Temperature Pulse Rate 89 81 68 Respiratory 18 18 18 Rate Blood Pressure 126/73 122/73 110/61 O2 Sat by Pulse 93 L 94 L 96 Oximetry 07/16/24 07/16/24 07/16/24 17:30 18:33 20:32 Temperature 97.9 F 98 F Pulse Rate 76 69 72 Respiratory 20 18 18 Rate Blood Pressure 107/87 126/77 139/103 O2 Sat by Pulse 91 L 93 L 94 L Oximetry 07/16/24 07/17/24 07/17/24 22:08 00:12 04:12 Temperature Pulse Rate 76 79 75 Respiratory 18 18 18 Rate Blood Pressure 140/70 131/94 147/94 O2 Sat by Pulse 98 91 L Oximetry 07/17/24 07/17/24 07/17/24 07:36 08:30 09:00 Temperature 97.2 F L Pulse Rate 79 74 70 Respiratory 24 24 24 Rate Blood Pressure 136/87 143/85 145/77 O2 Sat by Pulse 89 L 89 L 91 L Oximetry 07/17/24 07/17/24 07/17/24 12:00 13:00 14:00 Temperature Pulse Rate 81 69 64 Respiratory 24 23 21 Rate Blood Pressure 158/75 156/80 146/89 O2 Sat by Pulse 92 L 93 L 92 L Oximetry 07/17/24 15:00 Temperature Pulse Rate 56 L Respiratory 19 Rate Blood Pressure 152/72 O2 Sat by Pulse 92 L Oximetry - Reevaluation(s) Reevaluation #1: 07/15/24 17:04 Medical records reviewed Reevaluation #2: Patient symptoms unchanged here in the ER Reevaluation #3: Patient informed of results questions answered Reevaluation #4: Was pt. sent in by a medical professional or institution (, PA, DIRECTOR BIOMEDICAL ENGINEERING, urgent care, hospital, or skilled nursing...) When possible be specific @ -no Did you speak to anyone other than the patient for history (EMS, parent, family, police, friend...)? What history was obtained from this source @ -no Did you review nursing and triage notes (agree or disagree)? Why? @ -agree Are old charts reviewed (outside hosp., previous admission, EMS record, old EKG, old radiological studies, urgent care reports/EKG's, skilled nursing records)? Report findings @ -yes Differential Diagnosis (chest pain, altered mental status, abdominal pain women, abdominal pain men, vaginal bleeding, weakness, fever, dyspnea, syncope, h eadache, dizziness, GI bleed, back pain, seizure, CVA, palpatations, mental health, musculoskeletal)? @ -prior EKG interpreted by me (3pts min.). @ -yes X-rays interpreted by me (1pt min.). @ -yes negative for acute disease CT interpreted by me (1pt min.). @ - yes negative for acute disease U/S interpreted by me (1pt. min.). @ -Yes negative for acute disease What testing was considered but not performed or refused? (CT, X-rays, U/S, labs)? Why? @ -none What meds were considered but not given or refused? Why? @ -none Did you discuss the management of the patient with other professionals (professionals i.e. , PA, DIRECTOR BIOMEDICAL ENGINEERING, lab, RT, psych nurse, psychologist social, supervisor roller shop, teacher, associate loan officer, egg caser)? Give summary @ -no Was smoking cessation discussed for >3mins.? @ -no Was critical care preformed (if so, how long)? @ -yes31 Were there social determinants of health that impacted care today? How? (Homelessness, low income, unemployed, alcoholism, drug addiction, transportatio n, low edu. Level, literacy, decrease access to med. care, fdc, rehab)? @ -none Was there de-escalation of care discussed even if they declined (Discuss DNR or withdrawal of care, Hospice)? DNR status @ -no What co-morbidities impacted this encounter? (DM, HTN, Smoking, COPD, CAD, Cancer, CVA, ARF, Chemo, Hep., AIDS, mental health diagnosis, sleep apnea, morbid obesity)? @ -none Was patient admitted / discharged? Hospital course, mention meds given and route, prescriptions, significant lab abnormalities, going to OR and other pertinent info. @ - 79 male to the ER for evaluation of altered mental status low oxygen levels patient is in significant distress on arrival to the ER dehydration weak, x-ray negative for acute cause of hypoxia patient placed on heparin suspected DVT VQ scan in the morning and placed antibiotics for UTI Admitted UTI AMS Undiagnosed new problem with uncertain prognosis? @ -no Drug Therapy requiring intensive monitoring for toxicity (Heparin, Nitro, Insulin, Cardizem)? @ -no Were any procedures done? @ -no Diagnosis/symptom? @ -Hypoxia Acute, or Chronic, or Acute on Chronic? @ -Acute Uncomplicated (without systemic symptoms) or Complicated (systemic symptoms)? @ -Complicated Side effects of treatment? @ -no Exacerbation, Progression, or Severe Exacerbation? @ -exacerbation Poses a threat to life or bodily function? How? (Chest pain, USA, NC, pneumonia, PE, COPD, DKA, ARF, appy, cholecystitis, CVA, Diverticulitis, Homicidal, Suicidal, threat to staff... and all critical care pts) @ -yes hypoxia extremes of age Reevaluation #5: Differential Altered Mental Status: Hypoglycemia, DKA, hypercapnia, ETOH, overdose, CO poisoning, trauma, myxedema coma, HTN encephalopathy, infection, encephalitis, psychosis, intercranial hemorrhage, hepatic encephalopathy, meningitis, CVA, this is not meant to be an all-inclusive list Differential Weakness: Hypoglycemia, shock, sepsis, hyponatremia, anemia, infection, NC, ETOH, adverse medicine reaction, overdose, stroke, this is not meant to be an all-inclusive list. - Consultations Consultation #1: Physicians agreed admit this patient Medical Decision Making - Medical Decision Making 79 male to the ER for evaluation of altered mental status low oxygen levels patient is in significant distress on arrival to the ER dehydration weak, x-ray negative for acute cause of hypoxia patient placed on heparin suspected DVT VQ scan in the morning and placed antibiotics for UTI - Lab Data Result diagrams: 07/22/24 07:00 07/23/24 06:12 Lab Results 07/15/24 07/15/24 07/15/24 Range/Units 16:32 16:32 16:32 WBC 14.6 H (3.8-10.6) k/uL RBC 4.61 (4.30-5.90) m/uL Hgb 14.7 (13.0-17.5) gm/dL Hct 44.3 (39.0-53.0) % MCV 96.2 (80.0-100.0) fL MCH 32.0 (25.0-35.0) pg MCHC 33.2 (31.0-37.0) g/dL RDW 14.4 (11.5-15.5) % Plt Count 152 (150-450) k/uL MPV 8.1 Neutrophils % (Manual) 63 % Band Neuts % (Manual) 23 % Lymphocytes % (Manual) 6 % Monocytes % (Manual) 2 % Metamyelocytes % 6 % Myelocytes % 1 % Neutrophils # (Manual) 12.50 H (1.3-7.7) k/uL Lymphocytes # (Manual) 0.88 L (1.0-4.8) k/uL Monocytes # (Manual) 0.29 (0-1.0) k/uL Metamyelocytes # (Man) 0.88 H (0) k/uL Myelocytes # (Manual) 0.15 H (0) k/uL Nucleated RBCs 0 (0-0) /100 WBC Manual Slide Review Performed PT 12.3 (10.0-12.5) sec INR 1.1 (<1.2) APTT 21.4 L (22.0-30.0) sec D-Dimer 4.35 H (<0.60) mg/L FEU Sodium (137-145) mmol/L Potassium (3.5-5.1) mmol/L Chloride (98-107) mmol/L Carbon Dioxide (22-30) mmol/L Anion Gap mmol/L BUN (9-20) mg/dL Creatinine (0.66-1.25) mg/dL Est GFR (CKD-EPI)AfAm (>60 ml/min/1.73 sqM) Est GFR (CKD-EPI)NonAf (>60 ml/min/1.73 sqM) Glucose (74-99) mg/dL Calcium (8.4-10.2) mg/dL Phosphorus (2.5-4.5) mg/dL Magnesium (1.6-2.3) mg/dL Total Bilirubin (0.2-1.3) mg/dL AST (17-59) U/L ALT (4-49) U/L Alkaline Phosphatase (38-126) U/L Ammonia (<30) umol/L Troponin I (0.000-0.034) ng/mL NT-Pro-B Natriuret Pep pg/mL Total Protein (6.3-8.2) g/dL Albumin (3.5-5.0) g/dL Lipase (23-300) U/L Urine Color Urine Appearance (Clear) Urine pH (5.0-8.0) Ur Specific Lott (1.001-1.035) Urine Protein (Negative) Urine Glucose (UA) (Negative) Urine Ketones (Negative) Urine Blood (Negative) Urine Nitrite (Negative) Urine Bilirubin (Negative) Urine Urobilinogen (<2.0) mg/dL Ur Leukocyte Esterase (Negative) Urine RBC (0-5) /hpf Urine WBC (0-5) /hpf Urine WBC Clumps (None) /hpf Ur Squamous Epith Cells (0-4) /hpf Urine Bacteria (None) /hpf Hyaline Casts (0-2) /lpf Urine Mucus (None) /hpf Urine Opiates Screen (NotDetected) Ur Oxycodone Screen (NotDetected) Urine Methadone Screen (NotDetected) Ur Barbiturates Screen (NotDetected) U Tricyclic Antidepress (NotDetected) Ur Phencyclidine Scrn (NotDetected) Ur Amphetamines Screen (NotDetected) U Methamphetamines Scrn (NotDetected) U Benzodiazepines Scrn (NotDetected) Urine Cocaine Screen (NotDetected) U Marijuana (THC) Screen (NotDetected) Serum Alcohol mg/dL 07/15/24 07/15/24 07/15/24 Range/Units 18:37 18:37 18:37 WBC (3.8-10.6) k/uL RBC (4.30-5.90) m/uL Hgb (13.0-17.5) gm/dL Hct (39.0-53.0) % MCV (80.0-100.0) fL MCH (25.0-35.0) pg MCHC (31.0-37.0) g/dL RDW (11.5-15.5) % Plt Count (150-450) k/uL MPV Neutrophils % (Manual) % Band Neuts % (Manual) % Lymphocytes % (Manual) % Monocytes % (Manual) % Metamyelocytes % % Myelocytes % % Neutrophils # (Manual) (1.3-7.7) k/uL Lymphocytes # (Manual) (1.0-4.8) k/uL Monocytes # (Manual) (0-1.0) k/uL Metamyelocytes # (Man) (0) k/uL Myelocytes # (Manual) (0) k/uL Nucleated RBCs (0-0) /100 WBC Manual Slide Review PT (10.0-12.5) sec INR (<1.2) APTT (22.0-30.0) sec D-Dimer (<0.60) mg/L FEU Sodium 133 L (137-145) mmol/L Potassium 3.7 (3.5-5.1) mmol/L Chloride 103 (98-107) mmol/L Carbon Dioxide 19 L (22-30) mmol/L Anion Gap 11 mmol/L BUN 48 H (9-20) mg/dL Creatinine 2.34 H (0.66-1.25) mg/dL Est GFR (CKD-EPI)AfAm 30 (>60 ml/min/1.73 sqM) Est GFR (CKD-EPI)NonAf 26 (>60 ml/min/1.73 sqM) Glucose 79 (74-99) mg/dL Calcium 8.1 L (8.4-10.2) mg/dL Phosphorus 3.0 (2.5-4.5) mg/dL Magnesium 1.8 (1.6-2.3) mg/dL Total Bilirubin <0.1 L (0.2-1.3) mg/dL AST 18 (17-59) U/L ALT 6 (4-49) U/L Alkaline Phosphatase 131 H (38-126) U/L Ammonia <9 (<30) umol/L Troponin I 0.047 H* (0.000-0.034) ng/mL NT-Pro-B Natriuret Pep pg/mL Total Protein 4.8 L (6.3-8.2) g/dL Albumin 2.6 L (3.5-5.0) g/dL Lipase 21 L (23-300) U/L Urine Color Urine Appearance (Clear) Urine pH (5.0-8.0) Ur Specific Lott (1.001-1.035) Urine Protein (Negative) Urine Glucose (UA) (Negative) Urine Ketones (Negative) Urine Blood (Negative) Urine Nitrite (Negative) Urine Bilirubin (Negative) Urine Urobilinogen (<2.0) mg/dL Ur Leukocyte Esterase (Negative) Urine RBC (0-5) /hpf Urine WBC (0-5) /hpf Urine WBC Clumps (None) /hpf Ur Squamous Epith Cells (0-4) /hpf Urine Bacteria (None) /hpf Hyaline Casts (0-2) /lpf Urine Mucus (None) /hpf Urine Opiates Screen (NotDetected) Ur Oxycodone Screen (NotDetected) Urine Methadone Screen (NotDetected) Ur Barbiturates Screen (NotDetected) U Tricyclic Antidepress (NotDetected) Ur Phencyclidine Scrn (NotDetected) Ur Amphetamines Screen (NotDetected) U Methamphetamines Scrn (NotDetected) U Benzodiazepines Scrn (NotDetected) Urine Cocaine Screen (NotDetected) U Marijuana (THC) Screen (NotDetected) Serum Alcohol <10 mg/dL 07/15/24 07/15/24 Range/Units 18:37 20:27 WBC (3.8-10.6) k/uL RBC (4.30-5.90) m/uL Hgb (13.0-17.5) gm/dL Hct (39.0-53.0) % MCV (80.0-100.0) fL MCH (25.0-35.0) pg MCHC (31.0-37.0) g/dL RDW (11.5-15.5) % Plt Count (150-450) k/uL MPV Neutrophils % (Manual) % Band Neuts % (Manual) % Lymphocytes % (Manual) % Monocytes % (Manual) % Metamyelocytes % % Myelocytes % % Neutrophils # (Manual) (1.3-7.7) k/uL Lymphocytes # (Manual) (1.0-4.8) k/uL Monocytes # (Manual) (0-1.0) k/uL Metamyelocytes # (Man) (0) k/uL Myelocytes # (Manual) (0) k/uL Nucleated RBCs (0-0) /100 WBC Manual Slide Review PT (10.0-12.5) sec INR (<1.2) APTT (22.0-30.0) sec D-Dimer (<0.60) mg/L FEU Sodium (137-145) mmol/L Potassium (3.5-5.1) mmol/L Chloride (98-107) mmol/L Carbon Dioxide (22-30) mmol/L Anion Gap mmol/L BUN (9-20) mg/dL Creatinine (0.66-1.25) mg/dL Est GFR (CKD-EPI)AfAm (>60 ml/min/1.73 sqM) Est GFR (CKD-EPI)NonAf (>60 ml/min/1.73 sqM) Glucose (74-99) mg/dL Calcium (8.4-10.2) mg/dL Phosphorus (2.5-4.5) mg/dL Magnesium (1.6-2.3) mg/dL Total Bilirubin (0.2-1.3) mg/dL AST (17-59) U/L ALT (4-49) U/L Alkaline Phosphatase (38-126) U/L Ammonia (<30) umol/L Troponin I (0.000-0.034) ng/mL NT-Pro-B Natriuret Pep 3020 pg/mL Total Protein (6.3-8.2) g/dL Albumin (3.5-5.0) g/dL Lipase (23-300) U/L Urine Color Yellow Urine Appearance Cloudy (Clear) Urine pH 5.5 (5.0-8.0) Ur Specific Lott 1.020 (1.001-1.035) Urine Protein 2+ H (Negative) Urine Glucose (UA) Negative (Negative) Urine Ketones Trace H (Negative) Urine Blood Large H (Negative) Urine Nitrite Negative (Negative) Urine Bilirubin Negative (Negative) Urine Urobilinogen <2.0 (<2.0) mg/dL Ur Leukocyte Esterase Large H (Negative) Urine RBC 12 H (0-5) /hpf Urine WBC 81 H (0-5) /hpf Urine WBC Clumps Few H (None) /hpf Ur Squamous Epith Cells 1 (0-4) /hpf Urine Bacteria Many H (None) /hpf Hyaline Casts 1 (0-2) /lpf Urine Mucus Rare H (None) /hpf Urine Opiates Screen Detected H (NotDetected) Ur Oxycodone Screen Not Detected (NotDetected) Urine Methadone Screen Not Detected (NotDetected) Ur Barbiturates Screen Not Detected (NotDetected) U Tricyclic Antidepress Not Detected (NotDetected) Ur Phencyclidine Scrn Not Detected (NotDetected) Ur Amphetamines Screen Not Detected (NotDetected) U Methamphetamines Scrn Not Detected (NotDetected) U Benzodiazepines Scrn Not Detected (NotDetected) Urine Cocaine Screen Not Detected (NotDetected) U Marijuana (THC) Screen Not Detected (NotDetected) Serum Alcohol mg/dL - EKG Data -: EKG Interpreted by Me (EKG is sinus tachycardia 102 ND 174 QRS 138 QTc 416) - Radiology Data Radiology results: report reviewed (Chest x-ray is negative for acute disease CT brain negative for acute disease, ultrasound venous Doppler negative for acute disease), image reviewed Critical Care Time Critical Care Time: Yes Total Critical Care Time: 31 Disposition Clinical Impression: Altered mental status, UTI (urinary tract infection), Hypoxia, Weakness, Dehydration Disposition: ADMITTED IP TO THIS [facility] Condition: Stable Is patient prescribed a controlled substance at d/c from ED?: No Time of Disposition: 19:30
[2024-07-15 16:58] LABS: HCT 44.3 % (39.0-53.0); HGB 14.7 gm/dL (13.0-17.5); MCHC 33.2 g/dL (31.0-37.0); MCV 96.2 fL (80.0-100.0); Mean Platelet Volume 8.1; Platelet Count 152 k/uL (150-450); RBC 4.61 m/uL (4.30-5.90); RDW 14.4 % (11.5-15.5); WBC 14.6 k/uL (3.8-10.6)
[2024-07-15 17:21] LABS: INR 1.1 (<1.2); Prothrombin Time 12.3 sec (10.0-12.5)
--- NOTE | 2024-07-15 17:21 | XR ---
EXAMINATION TYPE: XR chest 2V DATE OF EXAM: 07/15/2024 5:12 PM COMPARISON: Previous CT study 09/19/2023. CLINICAL INDICATION: Male, 79 years old with history of ams; [facility] TECHNIQUE: XR chest 2V Frontal and lateral views of the chest. FINDINGS: Lungs/Pleura: There is no evidence of pleural effusion, focal consolidation, or pneumothorax. Pulmonary vascularity: Unremarkable. Heart/mediastinum: Cardiomediastinal silhouette is unremarkable. Musculoskeletal: No acute osseous pathology. Other findings: None IMPRESSION: No acute cardiopulmonary disease/process. [facility], , 07/15/2024 5:19 PM
[2024-07-15 17:43] LABS: Partial Thromboplastin Time 21.4 sec (22.0-30.0)
[2024-07-15] MEDS: HYDROmorphone 0.5 MG/0.5 ML SYRINGE IVP STA (17:48)
[2024-07-15] MEDS: SODIUM CHLORIDE 0.9% 1,000 ML IV ONE (17:49)
[2024-07-15 17:58] LABS: Band Neutrophils % 23 %; Lymphocytes # (M) 0.88 k/uL (1.0-4.8); Metamyelocytes # (M) 0.88 k/uL (0); Metamyelocytes % 6 %; Monocytes # (M) 0.29 k/uL (0-1.0); Myelocytes # (M) 0.15 k/uL (0); Myelocytes % 1 %; Neutrophils % (M) 63 %; Nucleated Red Blood Cells 0 /100 WBC (0-0); Total Cells Counted 200
--- NOTE | 2024-07-15 18:33 | CT ---
EXAMINATION TYPE: CT brain wo con DATE OF EXAM: 07/15/2024 5:50 PM COMPARISON: None. CLINICAL INDICATION: Male, 79 years old with history of ams, Pt c/o altered mental status, hallucinat ions and difficulty speaking. Pt unable to lay head flat, best possible images. TECHNIQUE: Brain: Axial CT images of the brain were obtained with coronal and sagittal reformats created and rev iewed. Contrast used: None. Oral contrast used: None. CT DLP: 1374.4 mGycm, Automated exposure control for dose reduction was used. FINDINGS: Brain: No acute intracranial hemorrhage, midline shift or significant acute mass effect. Ventricles and sulc i are prominent compatible generalized cerebral volume loss. Patchy periventricular and subcortical w avril matter hypoattenuation likely effecting chronic microvascular ischemic disease. Bilateral catara ct lens extraction noted. Basal cisterns are patent. No sizable extra axial fluid collection. No depr essed calvarial fracture or scalp hematoma. Paranasal sinuses and mastoid air cells are patent. IMPRESSION: No acute intracranial process. [facility], , 07/15/2024 6:31 PM
[2024-07-15 19:13] LABS: ALT 6 U/L (4-49); AST 18 U/L (17-59); African American GFR (CKD) 30 (>60 ml/min/1.73 sqM); Albumin 2.6 g/dL (3.5-5.0); Alcohol <10 mg/dL; Alkaline Phosphatase 131 U/L (38-126); Anion Gap 11 mmol/L; Blood Urea Nitrogen 48 mg/dL (9-20); Calcium 8.1 mg/dL (8.4-10.2); Carbon Dioxide 19 mmol/L (22-30); Chloride 103 mmol/L (98-107); Glucose 79 mg/dL (74-99); Lipase 21 U/L (23-300); Magnesium 1.8 mg/dL (1.6-2.3); Non-African American GFR(CKD) 26 (>60 ml/min/1.73 sqM); Potassium 3.7 mmol/L (3.5-5.1); Sodium 133 mmol/L (137-145); Total Bilirubin <0.1 mg/dL (0.2-1.3); Total Protein 4.8 g/dL (6.3-8.2)
[2024-07-15] MEDS: SODIUM CHLORIDE 0.9% 1,000 ML IV STA ×2 (19:55→20:32)
[2024-07-15] MEDS ORDERED: NALOXONE 0.4 MG/ML 1 ML VIAL IV PRN (20:45)
[2024-07-15 20:55] LABS: Appearance,Urine Cloudy (Clear); Bacteria,Urine Many /hpf; Bilirubin,Urine Negative (Negative); Blood,Urine Large (Negative); Color,Urine Yellow; Glucose,Urine (UA) Negative (Negative); Hyaline Casts,Urine 1 /lpf (0-2); Ketones,Urine Trace (Negative); Leukocyte Esterase,Urine Large (Negative); Mucus,Urine Rare /hpf; Nitrite,Urine Negative (Negative); PH, Urine 5.5 (5.0-8.0); Protein,Urine 2+ (Negative); RBC,Urine 12 /hpf (0-5); Squamous Epithelial Cell,Urine 1 /hpf (0-4); Urobilinogen,Urine <2.0 mg/dL (<2.0); WBC,Urine 81 /hpf (0-5)
[2024-07-15] MEDS ORDERED: ARTIFICIAL TEARS-HYPROMELLOSE DROPS 15 ML BTL BOTH EYES PRN (21:07)
[2024-07-15 21:13] LABS: Amphetamine Screen,Urine Not Detected (NotDetected); Barbiturate Screen,Urine Not Detected (NotDetected); Benzodiazepines Screen,Urine Not Detected (NotDetected); Cocaine Screen,Urine Not Detected (NotDetected); Methadone Screen, Urine Not Detected (NotDetected); Opiate Screen,Urine Detected (NotDetected); Oxycodone Screen, Urine Not Detected (NotDetected); Phencyclidine Screen,Urine Not Detected (NotDetected); Tricyclic Antidepressant,Urine Not Detected (NotDetected); Urn Cannabinoid Scrn Not Detected (NotDetected)
[2024-07-15] MEDS: DULoxetine HCL 30 MG CAPSULE.DR PO SCH (21:16)
[2024-07-15] MEDS: CARBIDOPA-LEVODOPA 25-100 MG 1 EACH TAB PO SCH (21:16)
[2024-07-15] MEDS: GABAPENTIN 400 MG CAP PO SCH (21:16)
[2024-07-15] MEDS: HEPARIN SODIUM 1,000 UN/ML (10ML VL) IV ONE (21:19)
[2024-07-15] MEDS: HEPARIN SOD,PORK IN 0.45% NACL 25,000 UNIT in 0.45% NACL 1 250ML.BAG IV SCH (21:20)
--- NOTE | 2024-07-15 21:29 | US ---
EXAMINATION TYPE: US venous doppler duplex LE BI DATE OF EXAM: 07/15/2024 9:03 PM COMPARISON: NONE CLINICAL INDICATION: Male, 79 years old with history of dvt; on aspirin, no leg swelling or redness, Pain TECHNIQUE: The lower extremity deep venous system is examined utilizing real time linear array sonog cyndee with graded compression, color doppler sonography, and spectral doppler. SIDE PERFORMED: Bilateral FINDINGS: VESSELS IMAGED: Common Femoral Vein Deep Femoral Vein Greater Saphenous Vein Femoral Vein Popliteal Vein Small Saphenous Vein Proximal Calf Veins (* superficial vessels) Right Leg: Negative for DVT, Color Doppler imaging shows patency of the vessels. Spectral waveforms are within normal limits. Left Leg: Negative for DVT, Color Doppler imaging shows patency of the vessels. Spectral waveforms a re within normal limits. IMPRESSION: No ultrasound evidence for deep venous thrombosis. [facility], , 07/15/2024 9:27 PM
[2024-07-15] MEDS: HYDROmorphone 0.5 MG/0.5 ML SYRINGE IVP PRN (21:45)
[2024-07-15] MEDS: SODIUM CHLORIDE 0.9% 1,000 ML IV SCH (22:21)
[2024-07-16 06:44] LABS: HCT 39.4 % (39.0-53.0); HGB 12.6 gm/dL (13.0-17.5); MCH 30.8 pg (25.0-35.0); MCHC 32.1 g/dL (31.0-37.0); Mean Platelet Volume 8.7; Platelet Count 116 k/uL (150-450); WBC 27.9 k/uL (3.8-10.6)
[2024-07-16 06:58] LABS: Band Neutrophils % 49 %; Lymphocytes # (M) 0.84 k/uL (1.0-4.8); Metamyelocytes # (M) 0.56 k/uL (0); Metamyelocytes % 2 %; Monocytes # (M) 0.56 k/uL (0-1.0); Neutrophils % (M) 44 %; Nucleated Red Blood Cells 0 /100 WBC (0-0); Total Cells Counted 200
[2024-07-16 06:59] LABS: ALT <6 U/L (4-49); AST 22 U/L (17-59); African American GFR (CKD) 40 (>60 ml/min/1.73 sqM); Albumin 2.7 g/dL (3.5-5.0); Alkaline Phosphatase 109 U/L (38-126); Anion Gap 12 mmol/L; Blood Urea Nitrogen 48 mg/dL (9-20); Carbon Dioxide 15 mmol/L (22-30); Chloride 108 mmol/L (98-107); Glucose 66 mg/dL (74-99); Magnesium 1.8 mg/dL (1.6-2.3); Non-African American GFR(CKD) 35 (>60 ml/min/1.73 sqM); Phosphorus 4.5 mg/dL (2.5-4.5); Potassium 4.4 mmol/L (3.5-5.1); Sodium 135 mmol/L (137-145); Total Bilirubin 0.3 mg/dL (0.2-1.3); Toxic Vacuolation Present
[2024-07-16] MEDS ORDERED: DEXTROSE 50% SYRINGE 50 ML IVP PRN ×2 (09:21)
--- NOTE | 2024-07-16 09:22 | NM ---
EXAMINATION TYPE: NM pul perfusion DATE OF EXAM: 07/16/2024 COMPARISON: Chest x-ray from one day earlier CLINICAL INDICATION: Male, 79 years old with history of dvt; Following administration of 5.4 mCi Tc 99m MAA. Images obtained post injection. FINDINGS: Suboptimal study due to only a few projections obtained. Small areas of diminished radiotracer uptake are seen in the periphery of the right lower lobe and portions of the right upper lobe. IMPRESSION: Nondiagnostic (low or intermediate probability) [facility], , 07/16/2024 9:19 AM
[2024-07-16 10:40] LABS: Glucose,Whole Blood 68 mg/dL (70-110)
[2024-07-16] MEDS: BRIMONIDINE TARTRATE 0.2% DROPS 5 ML BTL BOTH EYES SCH (10:40)
[2024-07-16] MEDS: CHOLECALCIFEROL 25 MCG (1000 IU) TABLET PO SCH (10:43)
[2024-07-16] MEDS: DILTIAZEM ORAL 60 MG TAB PO SCH (10:44)
[2024-07-16] MEDS: TAMSULOSIN 0.4 MG CAP.ER.24H PO SCH (10:45)
[2024-07-16 12:18] LABS: Glucose,Whole Blood 86 mg/dL (70-110)
--- NOTE | 2024-07-16 13:23 | P.NPCON ---
History of Present Illness - Reason for Consult acute renal failure - History of Present Illness Patient is a 79-year-old male who is admitted to the hospital with history of fever. Unable to obtain detailed history from the patient. Currently there is a sitter in place as he has been agitated and confused. Underlying history of Parkinson's disease, BPH and hypertension. Serum creatinine was 2.3 on admission and decreased to 1.8 today. Previous creatinine 0.8 on 09/19/2023. Blood pressure noted to be low with systolic in the 80s and 90s. Currently maintained on IV fluids. Home meds include Celebrex. 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 bladder cancer dx. in November 2021-chemo History of Any Multi-Drug Resistant Organisms: None Reported Past Surgical History: Hernia Repair, Tonsillectomy Additional Past Surgical History / Comment(s): kimmie cataracts, two bone marrow biopsies, kimmie blepharoplasty, oral surgery for dental extractions (that caused damage to lower palate), rt inguinal hernia bladder tumor removed Past Anesthesia/Blood Transfusion Reactions: No Reported Reaction Additional Past Anesthesia/Blood Transfusion Reaction / Comment(s): can not lay prone or supine due to DISH Past Psychological History: Anxiety, Depression, PTSD Smoking Status: Current every day smoker - Past Family History Father History Unknown: Yes Additional Family Medical History / Comment(s): did not know father Mother Family Medical History: Cancer Additional Family Medical History / Comment(s): breast Brother(s) Family Medical History: Cancer Additional Family Medical History / Comment(s): prostate- Medications and Allergies Home Medications Medication Instructions Recorded Confirmed Type Celecoxib [CeleBREX] 200 mg PO HS 12/13/18 07/15/24 History DULoxetine HCL [Cymbalta] 30 mg PO TID 12/13/18 07/15/24 History HYDROcodone/APAP 10-325MG [[place] 1 tab PO Q8H 12/13/18 07/15/24 History 10-325] Vit C/E/Zn/Coppr/Lutein/Zeaxan 1 cap PO DAILY 12/13/18 07/15/24 History [Preservision Areds 2 Softgel] Gabapentin [Neurontin] 800 mg PO TID 05/14/20 07/15/24 History Latanoprost/Pf [Latanoprost 0.005% 1 drop BOTH EYES HS 05/14/20 07/15/24 History Eye Drop] Tamsulosin HCl [Flomax] 0.4 mg PO DAILY 05/10/22 07/15/24 History Brimonidine Tartrate [Alphagan P 1 drop BOTH EYES BID 06/16/22 07/15/24 History 0.2% Ophth Soln] Artificial Tears-Hypromellose 1 drop BOTH EYES QID PRN 07/15/24 07/15/24 History [Artificial Tear Drops] Carbidopa-Levodopa 25-100 mg 1 tab PO TID 07/15/24 07/15/24 History [Sinemet 25-100] Cholecalciferol (Vitamin D3) 50 mcg PO BID 07/15/24 07/15/24 History [Vitamin D3 (50 Mcg = 2000 Iu)] Donepezil [Aricept] 10 mg PO HS 07/15/24 07/15/24 History Lactose-Reduced Food [Ensure Plus] 1 can PO BID 07/15/24 07/15/24 History dilTIAZem HCL 120 mg PO BID 07/15/24 07/15/24 History Allergies Allergy/AdvReac Type Severity Reaction Status Date / Time [facility] AdvReac cardiac Verified 07/15/24 20:04 issues nicotine patch AdvReac cardiac Uncoded 09/14/23 14:02 issues Physical Exam Vitals: Vital Signs Temp Pulse Resp BP Pulse Ox 07/16/24 06:00 81 18 122/73 94 L 07/16/24 03:00 89 18 126/73 93 L 07/16/24 00:00 98.2 F 85 18 99/66 92 L 07/15/24 22:00 98 18 101/64 93 L 07/15/24 21:21 98.2 F 101 H 18 94/66 94 L 07/15/24 20:29 102 H 18 100/65 93 L 07/15/24 19:48 101 H 18 89/58 94 L 07/15/24 15:45 98.2 F 110 H 18 108/56 92 L Intake and Output 07/15/24 07/16/24 07/16/24 22:59 06:59 14:59 Intake Total 96.955 Balance 96.955 Intake: Intake, IV Titration 96.955 Amount Heparin Sod,Pork in 0.45% 96.955 NaCl 25,000 unit In 0.45 % NaCl 1 250ml.bag @ 18 UNITS/KG/HR 12.247 mls/hr IV .[id number] [facility] Rx#: [id number] Other: Weight 68.039 kg Patient is awake, comfortable, talking in multiple tangents. 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 He has been confused. Results - Lab Results Most recent lab results Calcium 8.0 mg/dL (8.4-10.2) L 07/16/24 05:44 Phosphorus 4.5 mg/dL (2.5-4.5) 07/16/24 05:44 Magnesium 1.8 mg/dL (1.6-2.3) 07/16/24 05:44 07/16/24 05:44 07/16/24 05:44 Assessment and Plan Assessment: 1. Acute kidney injury, ATN secondary to hypotension and exacerbated with use of Celebrex. Currently maintained on IV fluids. Renal function is improving. 2. [place] metabolic acidosis secondary to acute kidney injury 3. Elevated troponins 4. Mental status changes most likely associated with underlying infection and hypotension 5. Pyuria rule out UTI, started on IV fluids 6. History of hypertension with blood pressure currently low Plan: Continue with IV fluids Decreased dose of Cardizem due to hypotension Decrease Neurontin Avoid nephrotoxic agents Continue Flomax Repeat labs in a.m. Check ultrasound of the kidneys Thank you for the consultation. We will continue to follow the patient with you during his hospitalization.
[2024-07-16] MEDS: ASPIRIN 81 MG PO SCH (13:29)
--- NOTE | 2024-07-16 13:49 | P.CRDCN ---
History of Present Illness History of present illness: HISTORY OF PRESENT ILLNESS: This is a 79-year-old male with a past medical history significant for Parkinson's, hypertension, and BPH. 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 We have been asked to see the patient in consultation for elevated troponins. Patient examined at the bedside in the emergency room. The patient is confused at the time of examination unable to provide any history. There is no family present. According to ER documentation, the patient was brought to the hospital secondary to fever. Patient currently denies any chest pain or pressure. Denies shortness of breath. He was found to have elevated troponins and was started on IV heparin. DIAGNOSTICS: - EKG reveals sinus mechanism with right bundle branch block - Chest xray negative for acute process - Venous Doppler: Negative for DVT bilaterally - VQ scan low or intermediate probability of PE - Laboratory data: WBC 27.9. Hemoglobin 12.6. Platelet count 116. Sodium 135 potassium 4.4. BUN 48. Creatinine 1.84. Troponin 0.047. 0.186. 0.205. - Current home cardiac medications include Cardizem CD 120 mg twice a day - No echocardiogram, stress test, or cardiac catheterization available in EMR for review REVIEW OF SYSTEMS: At the time of my exam: Unable to obtain through review of system secondary to altered mental status PHYSICAL EXAM: VITAL SIGNS: Reviewed. GENERAL: Well-developed in no acute distress. HEENT: Head is normocephalic. Pupils are equal, round. Sclerae anicteric. Mucous membranes of the mouth are moist. Neck supple. No JVD or thyromegaly LUNGS: Respirations even and unlabored. Lungs essentially clear to auscultation bilaterally. HEART: Regular rate and rhythm. S1 and S2 heard. ABDOMEN: Soft. Nondistended. Nontender. EXTREMITIES: Normal range of motion. No clubbing or cyanosis. Peripheral pulses intact. No lower extremity edema NEUROLOGIC: Confused ASSESSMENT: Altered mental status Acute kidney injury Elevated troponins, likely type II IL, no evidence of acute coronary syndrome Sepsis with fevers, tachycardia, hypotension, and leukocytosis Possible urinary tract infection History of hypertension PLAN: Obtain 2D echo to assess cardiac structure and function Add aspirin and atorvastatin Trend troponins Continue IV heparin Continue with conservative management at this time Further recommendations pending patient course Nurse practitioner note has been reviewed by physician. Signing provider agrees with the documented findings, assessment, and plan of care documented by CLIENT RELATIONS ASSOCIATE as a scribe. 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 bladder cancer dx. in November 2021-chemo History of Any Multi-Drug Resistant Organisms: None Reported Past Surgical History: Hernia Repair, Tonsillectomy Additional Past Surgical History / Comment(s): kimmie cataracts, two bone marrow biopsies, kimmie blepharoplasty, oral surgery for dental extractions (that caused damage to lower palate), rt inguinal hernia bladder tumor removed Past Anesthesia/Blood Transfusion Reactions: No Reported Reaction Additional Past Anesthesia/Blood Transfusion Reaction / Comment(s): can not lay prone or supine due to DISH Past Psychological History: Anxiety, Depression, PTSD Smoking Status: Current every day smoker - Past Family History Father History Unknown: Yes Additional Family Medical History / Comment(s): did not know father Mother Family Medical History: Cancer Additional Family Medical History / Comment(s): breast Brother(s) Family Medical History: Cancer Additional Family Medical History / Comment(s): prostate- Medications and Allergies Home Medications Medication Instructions Recorded Confirmed Type Celecoxib [CeleBREX] 200 mg PO HS 12/13/18 07/15/24 History DULoxetine HCL [Cymbalta] 30 mg PO TID 12/13/18 07/15/24 History HYDROcodone/APAP 10-325MG [[place] 1 tab PO Q8H 12/13/18 07/15/24 History 10-325] Vit C/E/Zn/Coppr/Lutein/Zeaxan 1 cap PO DAILY 12/13/18 07/15/24 History [Preservision Areds 2 Softgel] Gabapentin [Neurontin] 800 mg PO TID 05/14/20 07/15/24 History Latanoprost/Pf [Latanoprost 0.005% 1 drop BOTH EYES HS 05/14/20 07/15/24 History Eye Drop] Tamsulosin HCl [Flomax] 0.4 mg PO DAILY 05/10/22 07/15/24 History Brimonidine Tartrate [Alphagan P 1 drop BOTH EYES BID 06/16/22 07/15/24 History 0.2% Ophth Soln] Artificial Tears-Hypromellose 1 drop BOTH EYES QID PRN 07/15/24 07/15/24 History [Artificial Tear Drops] Carbidopa-Levodopa 25-100 mg 1 tab PO TID 07/15/24 07/15/24 History [Sinemet 25-100] Cholecalciferol (Vitamin D3) 50 mcg PO BID 07/15/24 07/15/24 History [Vitamin D3 (50 Mcg = 2000 Iu)] Donepezil [Aricept] 10 mg PO HS 07/15/24 07/15/24 History Lactose-Reduced Food [Ensure Plus] 1 can PO BID 07/15/24 07/15/24 History dilTIAZem HCL 120 mg PO BID 07/15/24 07/15/24 History Allergies Allergy/AdvReac Type Severity Reaction Status Date / Time [facility] AdvReac cardiac Verified 07/15/24 20:04 issues nicotine patch AdvReac cardiac Uncoded 09/14/23 14:02 issues Physical Exam Vitals: Vital Signs Temp Pulse Resp BP Pulse Ox 07/16/24 06:00 81 18 122/73 94 L 07/16/24 03:00 89 18 126/73 93 L 07/16/24 00:00 98.2 F 85 18 99/66 92 L 07/15/24 22:00 98 18 101/64 93 L 07/15/24 21:21 98.2 F 101 H 18 94/66 94 L 07/15/24 20:29 102 H 18 100/65 93 L 07/15/24 19:48 101 H 18 89/58 94 L 07/15/24 15:45 98.2 F 110 H 18 108/56 92 L Intake and Output 07/15/24 07/16/24 07/16/24 22:59 06:59 14:59 Intake Total 96.955 90.354 Balance 96.955 90.354 Intake: Intake, IV Titration 96.955 90.354 Amount Heparin Sod,Pork in 0.45% 96.955 90.354 NaCl 25,000 unit In 0.45 % NaCl 1 250ml.bag @ 18 UNITS/KG/HR 12.247 mls/hr IV .[id number] [facility] Rx#: [id number] Other: Weight 68.039 kg Results 07/16/24 05:44 07/16/24 05:44 Cardiac Enzymes 07/15/24 07/15/24 07/16/24 Range/Units 18:37 18:37 05:44 AST 18 22 (17-59) U/L Troponin I 0.047 H* (0.000-0.034) ng/mL 07/16/24 07/16/24 Range/Units 09:39 12:41 AST (17-59) U/L Troponin I 0.186 H* 0.205 H* (0.000-0.034) ng/mL Coagulation 07/15/24 07/16/24 07/16/24 Range/Units 16:32 03:43 11:13 PT 12.3 (10.0-12.5) sec APTT 21.4 L 84.4 H 61.4 H (22.0-30.0) sec CBC 07/15/24 07/16/24 Range/Units 16:32 05:44 WBC 14.6 H 27.9 H (3.8-10.6) k/uL RBC 4.61 4.10 L (4.30-5.90) m/uL Hgb 14.7 12.6 L (13.0-17.5) gm/dL Hct 44.3 39.4 (39.0-53.0) % Plt Count 152 116 L (150-450) k/uL Comprehensive Metabolic Panel 07/15/24 07/16/24 Range/Units 18:37 05:44 Sodium 133 L 135 L (137-145) mmol/L Potassium 3.7 4.4 (3.5-5.1) mmol/L Chloride 103 108 H (98-107) mmol/L Carbon Dioxide 19 L 15 L (22-30) mmol/L BUN 48 H 48 H (9-20) mg/dL Creatinine 2.34 H 1.84 H (0.66-1.25) mg/dL Glucose 79 66 L (74-99) mg/dL Calcium 8.1 L 8.0 L (8.4-10.2) mg/dL AST 18 22 (17-59) U/L ALT 6 <6 (4-49) U/L Alkaline Phosphatase 131 H 109 (38-126) U/L Total Protein 4.8 L 5.0 L (6.3-8.2) g/dL Albumin 2.6 L 2.7 L (3.5-5.0) g/dL Current Medications Generic Name Dose Route Start Last Admin Trade Name Freq PRN Reason Stop Dose Admin Artificial Tears 1 drops 07/15/24 21:07 Artificial Tears-Hypromellose Drops 15 Ml Btl BOTH EYES QID PRN Dry Eye(s) Aspirin 81 mg 07/16/24 12:30 07/16/24 13:29 Aspirin 81 Mg PO 81 mg DAILY OLIMPIA Administration Brimonidine Tartrate 1 drops 07/16/24 09:00 07/16/24 10:40 Brimonidine Tartrate 0.2% Drops 5 Ml Btl BOTH EYES 1 drops BID OLIMPIA Administration Carbidopa/Levodopa 1 each 07/15/24 22:00 07/16/24 10:45 Carbidopa-Levodopa 25-100 Mg 1 Each Tab PO 1 each TID OLIMP[facility] Administration Cholecalciferol 50 mcg 07/16/24 09:00 07/16/24 10:43 Cholecalciferol 25 Mcg (1000 Iu) Tablet PO 50 mcg BID OLIMPIA Administration Dextrose/Water 25 ml 07/16/24 09:21 Dextrose 50% Syringe 50 Ml IVP PER PROTOCOL PRN Hypoglycemia Protocol Dextrose/Water 50 ml 07/16/24 09:21 Dextrose 50% Syringe 50 Ml IVP PER PROTOCOL PRN Hypoglycemia Protocol Diltiazem HCl 30 mg 07/16/24 21:00 Diltiazem Oral 30 Mg Tab PO BID OLIMP[facility] Donepezil HCl 10 mg 07/16/24 21:00 Donepezil 10 Mg Tab PO HS [facility] Duloxetine HCl 30 mg 07/15/24 22:00 07/16/24 10:45 Duloxetine Hcl 30 Mg Capsule.Dr PO 30 mg TID OLIMP[facility] Administration Gabapentin 200 mg 07/16/24 21:00 Gabapentin 100 Mg Cap PO BID OLIMP[facility] Heparin Sodium (Porcine) 0 unit 07/15/24 19:30 Heparin Sodium 1,000 Un/Ml (10ml Vl) IV PER PROTOCOL PRN Low PTT Protocol Hydromorphone HCl 0.5 mg 07/15/24 20:45 07/16/24 05:18 Hydromorphone 0.5 Mg/0.5 Ml Syringe IVP 0.5 mg Q3HR PRN Administration Moderate Pain (Scale 4 to 6) Heparin Sodium/Sodium Chloride 250 mls @ 12.247 mls/hr 07/15/24 19:30 07/16/24 13:33 25,000 unit/ Sodium Chloride IV 16 units/kg/hr .[id number] OLIMP[facility] 10.886 mls/hr Titration Protocol 18 UNITS/KG/HR Ceftriaxone Sodium 2 gm/ 50 mls @ 100 mls/hr 07/16/24 09:00 07/16/24 10:46 Sodium Chloride IVPB 100 mls/hr Q24HR OLIMP[facility] Administration Protocol Sodium Bicarbonate 150 ml/ 1,150 mls @ 80 mls/hr 07/16/24 13:30 Dextrose/Water IV .[id number] [facility] Naloxone HCl 0.2 mg 07/15/24 20:45 Naloxone 0.4 Mg/Ml 1 Ml Vial IV Q2M PRN Opioid Reversal Ondansetron HCl 4 mg 07/15/24 20:45 Ondansetron 4 Mg/2 Ml Vial IVP Q8HR PRN Nausea And Vomiting Tamsulosin HCl 0.4 mg 07/16/24 09:00 07/16/24 10:45 Tamsulosin 0.4 Mg Cap.Er.24h PO 0.4 mg DAILY OLIM[facility] Administration Intake and Output 07/15/24 07/16/24 07/16/24 22:59 06:59 14:59 Intake Total 96.955 90.354 Balance 96.955 90.354 Intake: Intake, IV Titration 96.955 90.354 Amount Heparin Sod,Pork in 0.45% 96.955 90.354 NaCl 25,000 unit In 0.45 % NaCl 1 250ml.bag @ 18 UNITS/KG/HR 12.247 mls/hr IV .[id number] [facility] Rx#: [id number] Other: Weight 68.039 kg 07/16/24 05:44 07/16/24 05:44
[2024-07-16] MEDS: DEXTROSE 5% IN WATER 1,000 ML with SODIUM BICARB (1 MEQ/ML) 150 ML IV SCH (14:01)
--- NOTE | 2024-07-16 14:09 | US ---
EXAMINATION TYPE: US kidneys/renal and bladder DATE OF EXAM: 07/16/2024 COMPARISON: CT: 09/19/23 CLINICAL INDICATION: Male, 79 years old with history of noy; NOY Limited exam due to pt uncooperation and bowel gas. TECHNIQUE: Grayscale imaging of the bilateral kidneys and urinary bladder: FINDINGS: EXAM MEASUREMENTS: Right Kidney: 13.2 x 5.9 x 6.0 cm Left Kidney: 13.5 x 6.1 x 6.6 cm Right Kidney: cystic area seen sup pole measuring 1.7 x 1.7 x 1.3cm Left Kidney: severely limited due to bowel gas and pt unable to roll Bladder: contracted due to burton Bilateral Jets seen: Not assessed There is no evidence for hydronephrosis at this point in time. No nephrolithiasis is seen. A 1.7 cm simple appearing thin-walled cyst in the upper pole right kidney is redemonstrated. The urinary blad eleazar is decompressed by Burton catheter. IMPRESSION: Suboptimal study but no gross hydronephrosis is identified bilaterally. [facility], , 07/16/2024 2:07 PM
--- NOTE | 2024-07-16 14:11 | P.HPIM ---
History of Present Illness H&P Date: 07/16/24 History of Presenting Illness: Patient is a-year-old male with a past medical history of Parkinson's disease, hypertension, polymyalgia rheumatica, BPH, and bladder cancer status postchemotherapy treatments. Presented to the emergency department with a chief complaint of altered mental status, fevers, and reports of dysuria. Unable to obtain full ROS secondary to patient's mentation and current delirium with reports of visual and auditory hallucinations. Information obtained from nursing staff and documentation in chart. Upon arrival to our facility, patient underwent evaluation in the emergency department. Vital signs upon arrival show blood pressure 108/56, heart rate 110, respiratory rate 18, temp 98.2 F, and SpO2 of 92% on 2 L. EKG was completed showing sinus tachycardia at 102 bpm with a right bundle branch block and T wave inversion in inferior leads III and aVF. CT brain negative for acute process. Chest x-ray negative for acute cardiopulmonary process. Labs completed and reviewed. CBC showing leukocytosis with WBC count of 14.6. Coagulation profile showing a low PTT of 21.4 and an elevated D-dimer of 4.35. BMP showing acute kidney injury with BUN of 48, creatinine 2.34, and GFR of 26 with baseline creatinine of 0.8. Blood glucose 79. Magnesium 1.8. Liver profile showing slightly elevated alkaline phosphatase of 131 otherwise normal findings. Ammonia was negative less than 9. Troponin was elevated at 0.047. proBNP 3020. Lipase was low at 21. Albumin also low at 2.6. Urinalysis was positive for protein, ketones, blood, leukocyte esterase, 12 RBCs and 81 WBCs. Urine drug screen is positive for opiates and otherwise negative. Serum alcohol level was less than 10. Bilateral lower extremity Dopplers completed secondary to elevated D-dimer and were negative for DVT. V/Q scan was nondiagnostic showing a low or intermediate probability for PE. Patient was started on heparin infusion for treatment of elevated troponin. He was admitted under our services with consultation to cardiology. On examination at bedside, patient very confused and fidgety showing signs of delirium and hallucinations as patient reports seeing multiple people in his room and describing their activities stating that "the one man in the room shot and killed the other chioma right there " patient repeating that he wants to get out of here difficult to reorientate. Sitter brought to bedside for safety. Patient is a poor historian, but does deny having any complaints of pain being chest pain and abdominal pain, and denies any other complaints at this time. Review of systems: ROS limited secondary to patient's mentation and current delirious state. Physical exam: Vital signs reviewed and stable. General: Nontoxic, no distress and appears stated age. Thin, frail build. Derm: Skin warm and dry, normal coloration for ethnicity. Head: Atraumatic, normocephalic and symmetric. Eyes: EOM's intact, no lid lag, and anicteric sclera Mouth: no lip lesions, mucus membranes moist Cardiovascular: regular rate and rhythm with normal S1S2, no murmur, positive posterior tibial pulses bilaterally, and cap refill < 2 seconds. Lungs: Respirations even, regular, and unlabored on room air. Lungs CTA bilaterally, no rhonchi, no rales, no wheezing, and no accessory muscle usage. Abdominal: soft distended, nontender to palpation, no guarding, no appreciable organomegaly Ext: Movement and sensation intact. No gross muscle atrophy, no edema, no contractures Neuro: Speech clear, face symmetrical, patient moving all extremities indepe ndently with no noted signs of weakness. Only following limited and simple commands.. GCS 14. Psych: Alert and oriented to person only. Patient confused and delirious, appears to be hallucinating and talking about people in room and stating that "the one man in the room shot and killed the other chioma ".. Assessment and Plan of Care: Elevated troponin, likely type II NSTEMI secondary to underlying infectious process Hypotension -Patient denies cardiac complaints at this time. -Continue heparin infusion for treatment of NSTEMI with close monitoring of PTT for goal therapeutic range of 45 to 79 seconds. -Cardiology consulted appreciate recommendations. -Initial troponin 0.047, order placed for stat repeat troponin. Pending repeat troponin results, additional orders to be placed at that time. -Aspirin 81 mg daily and atorvastatin 40 mg nightly. -Order placed for repeat EKG. -Patient to remain on continuous telemetry monitoring. Acute metabolic encephalopathy with delirium and hallucinations Acute cystitis Acute kidney injury, possibly secondary to dehydration with current infection versus hypotension Sepsis on arrival, likely secondary to above -Continue IV antibiotics with Rocephin 2 g daily. -Follow-up on urine culture and blood culture results. -Obtain a Cepheid 4 Plex panel. -Provide safe and supportive care with assistance and redirection as needed. -Sitter at bedside maintaining safety. -Continue gentle IV fluid hydration with 0.9% normal saline at 75 cc/h. -Hold nephrotoxic medications and continue to monitor closely for improvement. -Order placed for bladder scan as needed to monitor for postvoid residual/retention. -Monitor I's and O's. -Maintain fall precautions. Parkinson's disease -Continue Aricept 10 mg nightly carbidopa/levodopa 25-100 mg tablets 3 times daily. BPH -Continue Flomax 0.4 mg daily and monitor for signs of urinary retention. Data and imaging reviewed: As stated above in HPI. CODE STATUS: Full code DVT prophylaxis: Heparin infusion Anticipated discharge date: Pending clinical course Anticipated discharge place: Pending clinical course Patient was seen independently by Nurse Practitioner. This document was prepared using [employer] dictation software. Please allow for errors in imagery analyst while rare they do occur. Abrahan Koenig NP rendered care for this patient independently, reviewed the findings and plan as documented in the note above and agree with plan. I did not physically speak with or examine the patient on this date. 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 bladder cancer dx. in November 2021-chemo History of Any Multi-Drug Resistant Organisms: None Reported Past Surgical History: Hernia Repair, Tonsillectomy Additional Past Surgical History / Comment(s): kimmie cataracts, two bone marrow biopsies, kimmie blepharoplasty, oral surgery for dental extractions (that caused damage to lower palate), rt inguinal hernia bladder tumor removed Past Anesthesia/Blood Transfusion Reactions: No Reported Reaction Additional Past Anesthesia/Blood Transfusion Reaction / Comment(s): can not lay prone or supine due to DISH Past Psychological History: Anxiety, Depression, PTSD Smoking Status: Current every day smoker - Past Family History Father History Unknown: Yes Additional Family Medical History / Comment(s): did not know father Mother Family Medical History: Cancer Additional Family Medical History / Comment(s): breast Brother(s) Family Medical History: Cancer Additional Family Medical History / Comment(s): prostate- Medications and Allergies Home Medications Medication Instructions Recorded Confirmed Type Celecoxib [CeleBREX] 200 mg PO HS 12/13/18 07/15/24 History DULoxetine HCL [Cymbalta] 30 mg PO TID 12/13/18 07/15/24 History HYDROcodone/APAP 10-325MG [[place] 1 tab PO Q8H 12/13/18 07/15/24 History 10-325] Vit C/E/Zn/Coppr/Lutein/Zeaxan 1 cap PO DAILY 12/13/18 07/15/24 History [Preservision Areds 2 Softgel] Gabapentin [Neurontin] 800 mg PO TID 05/14/20 07/15/24 History Latanoprost/Pf [Latanoprost 0.005% 1 drop BOTH EYES HS 05/14/20 07/15/24 History Eye Drop] Tamsulosin HCl [Flomax] 0.4 mg PO DAILY 05/10/22 07/15/24 History Brimonidine Tartrate [Alphagan P 1 drop BOTH EYES BID 06/16/22 07/15/24 History 0.2% Ophth Soln] Artificial Tears-Hypromellose 1 drop BOTH EYES QID PRN 07/15/24 07/15/24 History [Artificial Tear Drops] Carbidopa-Levodopa 25-100 mg 1 tab PO TID 07/15/24 07/15/24 History [Sinemet 25-100] Cholecalciferol (Vitamin D3) 50 mcg PO BID 07/15/24 07/15/24 History [Vitamin D3 (50 Mcg = 2000 Iu)] Donepezil [Aricept] 10 mg PO HS 07/15/24 07/15/24 History Lactose-Reduced Food [Ensure Plus] 1 can PO BID 07/15/24 07/15/24 History dilTIAZem HCL 120 mg PO BID 07/15/24 07/15/24 History Allergies Allergy/AdvReac Type Severity Reaction Status Date / Time nicotine [From Nicoderm ] AdvReac cardiac Verified 07/15/24 20:04 issues nicotine patch AdvReac cardiac Uncoded 09/14/23 14:02 issues Physical Exam Vitals: Vital Signs Temp Pulse Resp BP Pulse Ox 07/16/24 06:00 81 18 122/73 94 L 07/16/24 03:00 89 18 126/73 93 L 07/16/24 00:00 98.2 F 85 18 99/66 92 L 07/15/24 22:00 98 18 101/64 93 L 07/15/24 21:21 98.2 F 101 H 18 94/66 94 L 07/15/24 20:29 102 H 18 100/65 93 L 07/15/24 19:48 101 H 18 89/58 94 L 07/15/24 15:45 98.2 F 110 H 18 108/56 92 L Intake and Output 07/15/24 07/16/24 07/16/24 22:59 06:59 14:59 Intake Total 96.955 Balance 96.955 Intake: Intake, IV Titration 96.955 Amount Heparin Sod,Pork in 0.45% 96.955 NaCl 25,000 unit In 0.45 % NaCl 1 250ml.bag @ 18 UNITS/KG/HR 12.247 mls/hr IV .[id number] REPLACED BY [facility] Rx#: [id number] Other: Weight 68.039 kg Results CBC & Chem 7: 07/16/24 05:44 07/16/24 05:44 Labs: Abnormal Lab Results - Last 24 Hours (Table) 07/15/24 07/15/24 07/15/24 Range/Units 16:32 16:32 16:32 WBC 14.6 H (3.8-10.6) k/uL RBC (4.30-5.90) m/uL Hgb (13.0-17.5) gm/dL Plt Count (150-450) k/uL Neutrophils # (Manual) 12.50 H (1.3-7.7) k/uL Lymphocytes # (Manual) 0.88 L (1.0-4.8) k/uL Metamyelocytes # (Man) 0.88 H (0) k/uL Myelocytes # (Manual) 0.15 H (0) k/uL APTT 21.4 L (22.0-30.0) sec D-Dimer 4.35 H (<0.60) mg/L FEU Sodium (137-145) mmol/L Chloride (98-107) mmol/L Carbon Dioxide (22-30) mmol/L BUN (9-20) mg/dL Creatinine (0.66-1.25) mg/dL Glucose (74-99) mg/dL Calcium (8.4-10.2) mg/dL Total Bilirubin (0.2-1.3) mg/dL Alkaline Phosphatase (38-126) U/L Troponin I (0.000-0.034) ng/mL Total Protein (6.3-8.2) g/dL Albumin (3.5-5.0) g/dL Lipase (23-300) U/L Urine Protein (Negative) Urine Ketones (Negative) Urine Blood (Negative) Ur Leukocyte Esterase (Negative) Urine RBC (0-5) /hpf Urine WBC (0-5) /hpf Urine WBC Clumps (None) /hpf Urine Bacteria (None) /hpf Urine Mucus (None) /hpf Urine Opiates Screen (NotDetected) 07/15/24 07/15/24 07/15/24 Range/Units 18:37 18:37 20:27 WBC (3.8-10.6) k/uL RBC (4.30-5.90) m/uL Hgb (13.0-17.5) gm/dL Plt Count (150-450) k/uL Neutrophils # (Manual) (1.3-7.7) k/uL Lymphocytes # (Manual) (1.0-4.8) k/uL Metamyelocytes # (Man) (0) k/uL Myelocytes # (Manual) (0) k/uL APTT (22.0-30.0) sec D-Dimer (<0.60) mg/L FEU Sodium 133 L (137-145) mmol/L Chloride (98-107) mmol/L Carbon Dioxide 19 L (22-30) mmol/L BUN 48 H (9-20) mg/dL Creatinine 2.34 H (0.66-1.25) mg/dL Glucose (74-99) mg/dL Calcium 8.1 L (8.4-10.2) mg/dL Total Bilirubin <0.1 L (0.2-1.3) mg/dL Alkaline Phosphatase 131 H (38-126) U/L Troponin I 0.047 H* (0.000-0.034) ng/mL Total Protein 4.8 L (6.3-8.2) g/dL Albumin 2.6 L (3.5-5.0) g/dL Lipase 21 L (23-300) U/L Urine Protein 2+ H (Negative) Urine Ketones Trace H (Negative) Urine Blood Large H (Negative) Ur Leukocyte Esterase Large H (Negative) Urine RBC 12 H (0-5) /hpf Urine WBC 81 H (0-5) /hpf Urine WBC Clumps Few H (None) /hpf Urine Bacteria Many H (None) /hpf Urine Mucus Rare H (None) /hpf Urine Opiates Screen Detected H (NotDetected) 07/16/24 07/16/24 07/16/24 Range/Units 03:43 05:44 05:44 WBC 27.9 H (3.8-10.6) k/uL RBC 4.10 L (4.30-5.90) m/uL Hgb 12.6 L (13.0-17.5) gm/dL Plt Count 116 L (150-450) k/uL Neutrophils # (Manual) 25.90 H (1.3-7.7) k/uL Lymphocytes # (Manual) 0.84 L (1.0-4.8) k/uL Metamyelocytes # (Man) 0.56 H (0) k/uL Myelocytes # (Manual) (0) k/uL APTT 84.4 H (22.0-30.0) sec D-Dimer (<0.60) mg/L FEU Sodium 135 L (137-145) mmol/L Chloride 108 H (98-107) mmol/L Carbon Dioxide 15 L (22-30) mmol/L BUN 48 H (9-20) mg/dL Creatinine 1.84 H (0.66-1.25) mg/dL Glucose 66 L (74-99) mg/dL Calcium 8.0 L (8.4-10.2) mg/dL Total Bilirubin (0.2-1.3) mg/dL Alkaline Phosphatase (38-126) U/L Troponin I (0.000-0.034) ng/mL Total Protein 5.0 L (6.3-8.2) g/dL Albumin 2.7 L (3.5-5.0) g/dL Lipase (23-300) U/L Urine Protein (Negative) Urine Ketones (Negative) Urine Blood (Negative) Ur Leukocyte Esterase (Negative) Urine RBC (0-5) /hpf Urine WBC (0-5) /hpf Urine WBC Clumps (None) /hpf Urine Bacteria (None) /hpf Urine Mucus (None) /hpf Urine Opiates Screen (NotDetected)
[2024-07-16 15:54] LABS: Glucose,Whole Blood 80 mg/dL (70-110)
[2024-07-16] MEDS: LORazepam 2 MG/ML INJ IV STA (16:01)
[2024-07-16 17:07] LABS: Glucose,Whole Blood 96 mg/dL (70-110)
[2024-07-16] MEDS: ATORVASTATIN 40 MG TAB PO SCH (21:30)
[2024-07-16] MEDS: DILTIAZEM ORAL 30 MG TAB PO SCH (21:31)
[2024-07-16] MEDS: DONEPEZIL 10 MG TAB PO SCH (21:31)
[2024-07-16] MEDS: GABAPENTIN 100 MG CAP PO SCH (21:32)
[2024-07-16 23:11] LABS: Glucose,Whole Blood 91 mg/dL (70-110)
[2024-07-17 05:52] LABS: Glucose,Whole Blood 100 mg/dL (70-110)
[2024-07-17 09:01] LABS: HCT 40.9 % (39.0-53.0); HGB 13.3 gm/dL (13.0-17.5); MCH 31.1 pg (25.0-35.0); MCHC 32.5 g/dL (31.0-37.0); MCV 95.7 fL (80.0-100.0); Mean Platelet Volume 9.8; Platelet Count 105 k/uL (150-450); RBC 4.27 m/uL (4.30-5.90); RDW 14.4 % (11.5-15.5); WBC 23.7 k/uL (3.8-10.6)
[2024-07-17 09:16] LABS: ALT 9 U/L (4-49); AST 22 U/L (17-59); African American GFR (CKD) 71 (>60 ml/min/1.73 sqM); Albumin 2.6 g/dL (3.5-5.0); Alkaline Phosphatase 120 U/L (38-126); Anion Gap 8 mmol/L; Blood Urea Nitrogen 34 mg/dL (9-20); Calcium 8.2 mg/dL (8.4-10.2); Carbon Dioxide 25 mmol/L (22-30); Chloride 106 mmol/L (98-107); Glucose 91 mg/dL (74-99); Magnesium 2.2 mg/dL (1.6-2.3); Non-African American GFR(CKD) 61 (>60 ml/min/1.73 sqM); Potassium 3.4 mmol/L (3.5-5.1); Sodium 139 mmol/L (137-145); Total Bilirubin 0.3 mg/dL (0.2-1.3)
[2024-07-17] MEDS: HEPARIN SODIUM 1,000 UN/ML (10ML VL) IV PRN (12:32)
--- NOTE | 2024-07-17 12:53 | P.PN ---
Subjective HISTORY OF PRESENT ILLNESS: This is a 79-year-old male with a past medical history significant for Parkinson's, hypertension, and BPH. 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 We have been asked to see the patient in consultation for elevated troponins. Patient examined at the bedside in the emergency room. The patient is confused at the time of examination unable to provide any history. There is no family present. According to ER documentation, the patient was brought to the hospital secondary to fever. Patient currently denies any chest pain or pressure. Denies shortness of breath. He was found to have elevated troponins and was started on IV heparin. DIAGNOSTICS: - EKG reveals sinus mechanism with right bundle branch block - Chest xray negative for acute process - Venous Doppler: Negative for DVT bilaterally - VQ scan low or intermediate probability of PE - Laboratory data: WBC 27.9. Hemoglobin 12.6. Platelet count 116. Sodium 135 potassium 4.4. BUN 48. Creatinine 1.84. Troponin 0.047. 0.186. 0.205. - Current home cardiac medications include Cardizem CD 120 mg twice a day - No echocardiogram, stress test, or cardiac catheterization available in EMR for review 07/17/2024 Patient examined this morning. Patient remains in the emergency room waiting for a bed on 3 S. WBC remains elevated at 23.7. He remains on IV heparin. 2D echo is pending. He remains lethargic but mentation is slightly improved this morning. He is able to answer question today and appears more coherent. Family is at the bedside. Denies any history of CAD. PHYSICAL EXAM: VITAL SIGNS: Reviewed. GENERAL: Well-developed in no acute distress. HEENT: Head is normocephalic. Pupils are equal, round. Sclerae anicteric. Mucous membranes of the mouth are moist. Neck supple. No JVD or thyromegaly LUNGS: Respirations even and unlabored. Lungs essentially clear to auscultation bilaterally. HEART: Regular rate and rhythm. S1 and S2 heard. ABDOMEN: Soft. Nondistended. Nontender. EXTREMITIES: Normal range of motion. No clubbing or cyanosis. Peripheral pulses intact. No lower extremity edema NEUROLOGIC: Confused ASSESSMENT: Altered mental status Acute kidney injury Elevated troponins, likely type II AL, no evidence of acute coronary syndrome Sepsis with fevers, tachycardia, hypotension, and leukocytosis Possible urinary tract infection History of hypertension History of bladder cancer, in remission for 2 years PLAN: 2D echo ordered. Await results. Continue aspirin and atorvastatin Continue IV heparin for an additional 24 hours Continue with conservative management at this time Further recommendations pending patient course Nurse practitioner note has been reviewed by physician. Signing provider agrees with the documented findings, assessment, and plan of care documented by [employer] as a scribe. Objective - Vital Signs Vital signs: Vital Signs Temp 98 F 07/16/24 18:33 Pulse 75 07/17/24 04:12 Resp 18 07/17/24 04:12 BP 147/94 07/17/24 04:12 Pulse Ox 91 L 07/17/24 04:12 FiO2 Intake & Output 07/16/24 07/17/24 07/17/24 18:59 06:59 18:59 Intake Total 115.029 Output Total 1800 Balance 115.029 -1800 Intake: Intake, IV Titration 115.029 Amount Heparin Sod,Pork in 0.45% 115.029 NaCl 25,000 unit In 0.45 % NaCl 1 250ml.bag @ 18 UNITS/KG/HR 12.247 mls/hr IV .[id number] [facility] Rx#: [id number] Output: Urine 1800 - Labs CBC & Chem 7: 07/17/24 07:53 07/17/24 07:53 Labs: Abnormal Lab Results - Last 24 Hours (Table) 07/16/24 07/16/24 07/16/24 Range/Units 09:39 10:38 11:13 WBC (3.8-10.6) k/uL RBC (4.30-5.90) m/uL Plt Count (150-450) k/uL APTT 61.4 H (22.0-30.0) sec Potassium (3.5-5.1) mmol/L BUN (9-20) mg/dL POC Glucose (mg/dL) 68 L (70-110) mg/dL Calcium (8.4-10.2) mg/dL Troponin I 0.186 H* (0.000-0.034) ng/mL Total Protein (6.3-8.2) g/dL Albumin (3.5-5.0) g/dL 07/16/24 07/16/24 07/17/24 Range/Units 12:41 16:56 07:53 WBC 23.7 H (3.8-10.6) k/uL RBC 4.27 L (4.30-5.90) m/uL Plt Count 105 L (150-450) k/uL APTT (22.0-30.0) sec Potassium (3.5-5.1) mmol/L BUN (9-20) mg/dL POC Glucose (mg/dL) (70-110) mg/dL Calcium (8.4-10.2) mg/dL Troponin I 0.205 H* 0.234 H* (0.000-0.034) ng/mL Total Protein (6.3-8.2) g/dL Albumin (3.5-5.0) g/dL 07/17/24 Range/Units 07:53 WBC (3.8-10.6) k/uL RBC (4.30-5.90) m/uL Plt Count (150-450) k/uL APTT (22.0-30.0) sec Potassium 3.4 L (3.5-5.1) mmol/L BUN 34 H (9-20) mg/dL POC Glucose (mg/dL) (70-110) mg/dL Calcium 8.2 L (8.4-10.2) mg/dL Troponin I (0.000-0.034) ng/mL Total Protein 5.0 L (6.3-8.2) g/dL Albumin 2.6 L (3.5-5.0) g/dL Microbiology - Last 24 Hours (Table) 07/15/24 20:27 Urine Culture - Preliminary Urine,Catheterized Gram Neg Bacilli
--- NOTE | 2024-07-17 13:15 | CA ---
Transthoracic Echo Report Name: Yuri Silverman Age: 79 Gender: M : 1945 Exam Date: 07/16/2024 15:14 Exam Location: [facility] Ht (in): 67 Wt (lb): 150 Ordering Physician: Sally Bucio Attending/Referring Phys: [id number], [place] Support Specialist Anya Mackay RDCS Procedure CPT: Indications: LV function Cardiac Hx: Technical Quality: Technically difficult study Contrast 1: Total Dose (mL): Contrast 2: Total Dose (mL): MEASUREMENTS (Male / Female) Normal Values 2D ECHO LV Diastolic Diameter PLAX 5.8 cm 4.2 - 5.9 / 3.9 - 5.3 cm LV Systolic Diameter PLAX 4.4 cm IVS Diastolic Thickness 0.7 cm 0.6 - 1.0 / 0.6 - 0.9 cm LVPW Diastolic Thickness 1.3 cm 0.6 - 1.0 / 0.6 - 0.9 cm LV Relative Wall Thickness 0.3 LVOT Diameter 2.3 cm Aortic Root Diameter 3.5 cm LV Diastolic Volume MOD 4C 115.3 cm??? LV Systolic Volume MOD 4C 61.9 cm??? LV Ejection Fraction MOD 4C 46.3 % LV Cardiac Index MOD 4C 1990.6 cm???/min???m??? LV Diastolic Length 4C 7.8 cm LV Systolic Length 4C 6.6 cm LA Volume 79.3 cm??? 18 - 58 / 22 - 52 cm??? LA Volume Index 44.1 cm???/m??? 16 - 28 cm???/m??? Ascending Aorta Diameter 3.5 cm DOPPLER AV Peak Velocity 122.2 cm/s AV Peak Gradient 6.0 mmHg AV Mean Velocity 92.3 cm/s AV Mean Gradient 3.6 mmHg AV Velocity Time Integral 27.9 cm LVOT Peak Velocity 95.4 cm/s LVOT Peak Gradient 3.6 mmHg LVOT Velocity Time Integral 19.8 cm LVOT Stroke Volume 83.3 cm??? LVOT Stroke Volume Index 46.5 ml/m??? LVOT Cardiac Index 3101.8 cm???/min???m??? AV Area Cont Eq vti 3.0 cm??? AV Area Cont Eq pk 3.3 cm??? MV Area PHT 5.6 cm??? Mitral E Point Velocity 72.3 cm/s Mitral A Point Velocity 55.1 cm/s Mitral E to A Ratio 1.3 MV Deceleration Time 136.3 ms TR Peak Velocity 276.8 cm/s TR Peak Gradient 30.6 mmHg Right Atrial Pressure 10.0 mmHg Pulmonary Artery Systolic Pressu 40.6 mmHg Right Ventricular Systolic Press 40.6 mmHg PV Peak Velocity 67.1 cm/s PV Peak Gradient 1.8 mmHg FINDINGS Left Ventricle Left ventricular ejection fraction is estimated at 40-45 %. Left ventricular cavity size normal. Left ventricular wall thickness normal. Mildly reduced global left ventricular systolic function. Right Ventricle Right ventricular dilatation with normal function. Mild pulmonary hypertension. Right Atrium Right atrial dilatation. Left Atrium Severe LA dilatation Mitral Valve Structurally normal mitral valve. No evidence for mitral valve prolapse. No mitral stenosis. Mild mitral regurgitation. Aortic Valve Trileaflet aortic valve. Aortic valve sclerosis. No aortic stenosis. Trace aortic regurgitation. Tricuspid Valve Structurally normal tricuspid valve. No tricuspid stenosis. [id number] tricuspid regurgitation. Pulmonic Valve Pulmonic valve not well visualized. No pulmonic stenosis. No pulmonic regurgitation. Pericardium No pericardial effusion. Aorta Normal size aortic root and proximal ascending aorta. CONCLUSIONS Technically difficult study. LVEF 45% No obvious regional wall motion abnormality Severe LA dilatation., Mild mitral regurgitation Moderate tricuspid regurgitation Previewed by: Dr Silvano Nathan (Electronically Signed) Final Date: 17 July 2024 13:14
--- NOTE | 2024-07-17 16:26 | P.PN ---
Subjective Progress Note Date: 07/17/24 History of Presenting Illness: Patient is a-year-old male with a past medical history of Parkinson's disease, hypertension, polymyalgia rheumatica, BPH, and bladder cancer status postchemotherapy treatments. Presented to the emergency department with a chief complaint of altered mental status, fevers, and reports of dysuria. Unable to obtain full ROS secondary to patient's mentation and current delirium with reports of visual and auditory hallucinations. Information obtained from nursing staff and documentation in chart. Upon arrival to our facility, patient underwent evaluation in the emergency department. Vital signs upon arrival show blood pressure 108/56, heart rate 110, respiratory rate 18, temp 98.2 F, and SpO2 of 92% on 2 L. EKG was completed showing sinus tachycardia at 102 bpm with a right bundle branch block and T wave inversion in inferior leads III and aVF. CT brain negative for acute process. Chest x-ray negative for acute card iopulmonary process. Labs completed and reviewed. CBC showing leukocytosis with WBC count of 14.6. Coagulation profile showing a low PTT of 21.4 and an elevated D-dimer of 4.35. BMP showing acute kidney injury with BUN of 48, creatinine 2.34, and GFR of 26 with baseline creatinine of 0.8. Blood glucose 79. Magnesium 1.8. Liver profile showing slightly elevated alkaline phosphatase of 131 otherwise normal findings. Ammonia was negative less than 9. Troponin was elevated at 0.047. proBNP 3020. Lipase was low at 21. Albumin also low at 2.6. Urinalysis was positive for protein, ketones, blood, leukocyte esterase, 12 RBCs and 81 WBCs. Urine drug screen is positive for opiates and ot herwise negative. Serum alcohol level was less than 10. Bilateral lower extremity Dopplers completed secondary to elevated D-dimer and were negative for DVT. V/Q scan was nondiagnostic showing a low or intermediate probability for PE. Patient was started on heparin infusion for treatment of elevated troponin. He was admitted under our services with consultation to cardiology. On examination at bedside, patient very confused and fidgety showing signs of delirium and hallucinations as patient reports seeing multiple people in his room and describing their activities stating that "the one man in the room shot and killed the other chioma right there " patient repeating that he wants to get out of here difficult to reorientate. Sitter brought to bedside for safety. Patient is a poor historian, but does deny having any complaints of pain being chest pain and abdominal pain, and denies any other complaints at this time. Physical exam: Patient seen and fully evaluated at bedside. He continues to have frequent hallucinations and confusion with acute delirium. Patient's daughter at bedside and states his baseline orientation is alert to person, place, time, and situation. She reports he ambulates with a walker at home and was recently diag nosed with Parkinson's and occasionally reveals signs of minimal confusion or forgetfulness but typically cares for self independently. She does report that he gets frequent urinary tract infections and has had episodes of confusion like this in the past during acute infectious process. Vital signs reviewed and stable. General: Nontoxic, no distress and appears stated age. Thin, frail build. Derm: Skin warm and dry, normal coloration for ethnicity. Head: Atraumatic, normocephalic and symmetric. Eyes: EOM's intact, no lid lag, and anicteric sclera Mouth: no lip lesions, mucus membranes moist Cardiovascular: regular rate and rhythm with normal S1S2, no murmur, positive posterior tibial pulses bilaterally, and cap refill < 2 seconds. Lungs: Respirations even, regular, and unlabored on room air. Lungs CTA bilaterally, no rhonchi, no rales, no wheezing, and no accessory muscle usage. Abdominal: soft distended, nontender to palpation, no guarding, no appreciable organomegaly Ext: Movement and sensation intact. No gross muscle atrophy, no edema, no contractures Neuro: Speech clear, face symmetrical, patient moving all extremities independently with no noted signs of weakness. Only following limited and simple commands.. GCS 14. Psych: Alert and oriented to person only. Patient confused and delirious, continues to have frequent hallucinations, flashbacks from [place], calling his dog and trying to pet him. Assessment and Plan of Care: Elevated troponin, likely type II NSTEMI secondary to underlying infectious process Hypotension, resolved -Patient denies cardiac complaints at this time. -Continue heparin infusion for treatment of NSTEMI with close monitoring of PTT for goal therapeutic range of 45 to 79 seconds. PTT currently subtherapeutic at 33.3. -Cardiology following, reviewed documentation in chart -Troponins trended resulting at 0.047, 0.186, 0.205, and 0.234. -Aspirin 81 mg daily and atorvastatin 40 mg nightly. -Patient to remain on continuous telemetry monitoring. -Echocardiogram completed revealing reduced EF of 40-45%, severe left atrial dilation, mild mitral regurgitation, and moderate tricuspid regurgitation. Acute respiratory failure with hypoxia -Patient's oxygenation needs increasing from 2 L to 4 L overnight. Believed to be secondary to fluid volume overload as patient did receive IV fluid rehydration (3 L bolus in the emergency department followed by maintenance infusion) secondary to his acute kidney injury and sepsis on arrival. -Cepheid 4 Plex viral panel negative. Initial chest x-ray negative. -Order placed for repeat chest x-ray. -Patient to continue with supplemental oxygen as needed to maintain SpO2 equal to or greater than 90%. -Pending repeat chest x-ray results and continued oxygen needs additional orders to be placed and may consider pulmonary consult. Acute metabolic encephalopathy with delirium and hallucinations Acute cystitis Acute kidney injury, possibly secondary to dehydration with current infection accompanied by hypotension. Sepsis on arrival, secondary to above Leukocytosis Thrombocytopenia -Continue IV antibiotics with Rocephin 2 g daily. -Urine culture preliminarily resulting positive for gram-negative bacilli, will follow-up on final culture and sensitivity report. -Blood cultures pending. -Cepheid 4 Plex viral panel was negative. -Provide safe and supportive care with assistance and redirection as needed. Sitter at bedside maintaining safety. -Nephrology following, reviewed documentation in chart. -Continue bicarb infusion at 80 cc/h. -Hold nephrotoxic medications and continue to monitor closely for improvement. -Continue bladder scanning as needed to monitor for postvoid residual/retention. Ultrasound kidneys and bladder reported no gross hydronephrosis identified. -Monitor I's and O's. -Maintain fall precautions. Parkinson's disease -Continue Aricept 10 mg nightly carbidopa/levodopa 25-100 mg tablets 3 times daily. BPH -Continue Flomax 0.4 mg daily and monitor for signs of urinary retention. Data and imaging reviewed: Ultrasound kidneys and bladder reported no gross hydronephrosis identified. Morning labs reviewed. CBC showing WBC count of 23.7 and thrombocytopenia with platelet count of 105. PTT subtherapeutic at 33.3. BMP showing hypokalemia with potassium of 3.4 and moderate improvement in renal function with BUN of 34, creatinine of 1.15, GFR of 61. Blood glucose 91. Magnesium 2.2. Liver profile normal findings with the exception of hypoalbuminemia with albumin of 2.6. Vital signs reviewed. Blood pressure 145/77, heart rate 70, respiratory rate 24, temp 97.2 F, and SpO2 of 91% on 4 L. CODE STATUS: Full code DVT prophylaxis: Heparin infusion Anticipated discharge date: Pending clinical course Anticipated discharge place: Pending clinical course Patient was seen independently by Nurse Practitioner. This document was prepared using [employer] dictation software. Please allow for errors in sanforizing machine operator while rare they do occur. Abrahan Koenig NP rendered care for this patient independently, reviewed the findings and plan as documented in the note above and agree with plan. I did not physically speak with or examine the patient on this date. Objective - Vital Signs Vital signs: Vital Signs Temp 98 F 07/16/24 18:33 Pulse 75 07/17/24 04:12 Resp 18 07/17/24 04:12 BP 147/94 07/17/24 04:12 Pulse Ox 91 L 07/17/24 04:12 FiO2 Intake & Output 07/16/24 07/17/24 07/17/24 18:59 06:59 18:59 Intake Total 115.029 Output Total 1800 Balance 115.029 -1800 Intake: Intake, IV Titration 115.029 Amount Heparin Sod,Pork in 0.45% 115.029 NaCl 25,000 unit In 0.45 % NaCl 1 250ml.bag @ 18 UNITS/KG/HR 12.247 mls/hr IV .[id number] [facility] Rx#: [id number] Output: Urine 1800 - Labs CBC & Chem 7: 07/17/24 07:53 07/17/24 07:53 Labs: Abnormal Lab Results - Last 24 Hours (Table) 07/16/24 07/16/24 07/16/24 Range/Units 09:39 10:38 11:13 WBC (3.8-10.6) k/uL RBC (4.30-5.90) m/uL Plt Count (150-450) k/uL APTT 61.4 H (22.0-30.0) sec POC Glucose (mg/dL) 68 L (70-110) mg/dL Troponin I 0.186 H* (0.000-0.034) ng/mL 07/16/24 07/16/24 07/17/24 Range/Units 12:41 16:56 07:53 WBC 23.7 H (3.8-10.6) k/uL RBC 4.27 L (4.30-5.90) m/uL Plt Count 105 L (150-450) k/uL APTT (22.0-30.0) sec POC Glucose (mg/dL) (70-110) mg/dL Troponin I 0.205 H* 0.234 H* (0.000-0.034) ng/mL
[2024-07-17 16:40] LABS: Glucose,Whole Blood 148 mg/dL (70-110)
--- NOTE | 2024-07-17 16:49 | XR ---
EXAMINATION TYPE: XR chest 1V portable DATE OF EXAM: 07/17/2024 4:35 PM COMPARISON: Chest radiographs from CLINICAL INDICATION: Male, 79 years old with history of f/u CXR increasing oxygen needs; [facility] TECHNIQUE: XR chest 1V portable Frontal view of the chest. FINDINGS: Lungs/Pleura: A space opacities predominantly in the right lung. Blunting of the left costophrenic an gle. Pulmonary vascularity: Unremarkable. Heart/mediastinum: Cardiomediastinal silhouette is unremarkable. Musculoskeletal: No acute osseous pathology. IMPRESSION: Airspace opacities in the right lung correlate for right-sided predominant pulmonary edema correlate for pneumonia. [facility], , 07/17/2024 4:47 PM
[2024-07-17] MEDS: POTASSIUM CHLORIDE ER 20 MEQ TAB.ER PO STA (17:14)
[2024-07-17 20:37] LABS: Glucose,Whole Blood 124 mg/dL (70-110)
[2024-07-18 05:55] LABS: Glucose,Whole Blood 132 mg/dL (70-110)
[2024-07-18 08:08] LABS: HCT 43.2 % (39.0-53.0); MCHC 32.4 g/dL (31.0-37.0); MCV 95.9 fL (80.0-100.0); Mean Platelet Volume 10.5; Platelet Count 113 k/uL (150-450); RBC 4.51 m/uL (4.30-5.90); RDW 14.4 % (11.5-15.5); WBC 20.2 k/uL (3.8-10.6)
[2024-07-18 08:19] LABS: ALT 8 U/L (4-49); AST 19 U/L (17-59); African American GFR (CKD) >90 (>60 ml/min/1.73 sqM); Albumin 2.7 g/dL (3.5-5.0); Alkaline Phosphatase 125 U/L (38-126); Anion Gap 4 mmol/L; Blood Urea Nitrogen 26 mg/dL (9-20); Calcium 8.3 mg/dL (8.4-10.2); Carbon Dioxide 33 mmol/L (22-30); Chloride 103 mmol/L (98-107); Glucose 134 mg/dL (74-99); Magnesium 2.3 mg/dL (1.6-2.3); Non-African American GFR(CKD) 84 (>60 ml/min/1.73 sqM); Potassium 3.3 mmol/L (3.5-5.1); Sodium 140 mmol/L (137-145); Total Bilirubin 0.4 mg/dL (0.2-1.3); Total Protein 5.1 g/dL (6.3-8.2)
[2024-07-18] MEDS: LORazepam 2 MG/ML INJ IV PRN (08:24)
[2024-07-18] MEDS: ONDANSETRON 4 MG/2 ML VIAL IVP PRN (08:24)
[2024-07-18] MEDS: AZITHROMYCIN 500 MG in SODIUM CHLORIDE 0.9% 250 ML IVPB SCH (11:25)
[2024-07-18] MEDS: POTASSIUM CHLORIDE ER 20 MEQ TAB.ER PO STA ×2 (11:25→16:05)
[2024-07-18] MEDS: LOSARTAN 25 MG TAB PO SCH (11:25)
[2024-07-18 11:43] LABS: Glucose,Whole Blood 163 mg/dL (70-110)
[2024-07-18] MEDS ORDERED: ALPRAZolam 0.25 MG TAB PO PRN (12:08)
--- NOTE | 2024-07-18 12:56 | P.PN ---
Subjective Patient is seen for follow-up for acute kidney injury. Renal function has improved. Serum creatinine down to 0.86 from 2.3 on initial admission. Maintained on IV fluids, IV bicarb Objective - Vital Signs Vital signs: Vital Signs Temp 98.3 F 07/18/24 08:15 Pulse 65 07/18/24 08:15 Resp 16 07/18/24 08:15 BP 161/70 07/18/24 08:15 Pulse Ox 94 L 07/18/24 08:15 FiO2 Intake & Output 07/17/24 07/18/24 07/18/24 18:59 06:59 18:59 Intake Total 242.804 109.202 Output Total 625 Balance 242.804 -515.798 Weight 68.039 kg 67.1 kg Intake: Intake, IV Titration 242.804 109.202 Amount Heparin Sod,Pork in 0.45% 242.804 109.202 NaCl 25,000 unit In 0.45 % NaCl 1 250ml.bag @ 18 UNITS/KG/HR 12.247 mls/hr IV .[id number] [facility] Rx#: [id number] Output: Urine 625 Other: Voiding Method Indwelling Catheter Indwelling Catheter - Exam Patient is awake, comfortable, talking in multiple tangents. Examination of the heart S1 and S2 Examination of the lungs bilateral breath sounds are heard Abdomen is soft nontender Examination of lower extremities shows no edema ECOTHERAPIST exam shows patient is moving all 4 extremities. He has been confused - Labs CBC & Chem 7: 07/18/24 06:59 07/18/24 06:59 Labs: Abnormal Lab Results - Last 24 Hours (Table) 07/17/24 07/17/24 07/17/24 Range/Units 16:39 18:57 20:35 WBC (3.8-10.6) k/uL Plt Count (150-450) k/uL APTT 37.9 H (22.0-30.0) sec Potassium (3.5-5.1) mmol/L Carbon Dioxide (22-30) mmol/L BUN (9-20) mg/dL Glucose (74-99) mg/dL POC Glucose (mg/dL) 148 H 124 H (70-110) mg/dL Calcium (8.4-10.2) mg/dL Total Protein (6.3-8.2) g/dL Albumin (3.5-5.0) g/dL 07/18/24 07/18/24 07/18/24 Range/Units 05:53 06:59 06:59 WBC 20.2 H (3.8-10.6) k/uL Plt Count 113 L (150-450) k/uL APTT (22.0-30.0) sec Potassium 3.3 L (3.5-5.1) mmol/L Carbon Dioxide 33 H (22-30) mmol/L BUN 26 H (9-20) mg/dL Glucose 134 H (74-99) mg/dL POC Glucose (mg/dL) 132 H (70-110) mg/dL Calcium 8.3 L (8.4-10.2) mg/dL Total Protein 5.1 L (6.3-8.2) g/dL Albumin 2.7 L (3.5-5.0) g/dL 07/18/24 07/18/24 Range/Units 06:59 11:41 WBC (3.8-10.6) k/uL Plt Count (150-450) k/uL APTT 38.3 H (22.0-30.0) sec Potassium (3.5-5.1) mmol/L Carbon Dioxide (22-30) mmol/L BUN (9-20) mg/dL Glucose (74-99) mg/dL POC Glucose (mg/dL) 163 H (70-110) mg/dL Calcium (8.4-10.2) mg/dL Total Protein (6.3-8.2) g/dL Albumin (3.5-5.0) g/dL Microbiology - Last 24 Hours (Table) 07/16/24 09:39 Blood Culture - Preliminary Blood 07/15/24 20:27 Urine Culture - Preliminary Urine,Catheterized Gram Neg Bacilli Assessment and Plan Assessment: 1. Acute kidney injury, ATN secondary to hypotension and exacerbated with use of Celebrex. Currently maintained on IV fluids. Renal function is improving. 2. Nongap metabolic acidosis secondary to acute kidney injury 3. Elevated troponins 4. Mental status changes most likely associated with underlying infection and hypotension 5. UTI with urine culture growing gram-negative bacilli 6. History of hypertension with blood pressure currently low Plan: DC IV bicarb Replace potassium Encourage increased oral intake
--- NOTE | 2024-07-18 14:25 | P.PN ---
Subjective HISTORY OF PRESENT ILLNESS: This is a 79-year-old male with a past medical history significant for Parkinson's, hypertension, and BPH. Patient does not follow with a animal researcher. We have been asked to see the patient in consultation for elevated troponins. Patient examined at the bedside in the emergency room. The patient is confused at the time of examination unable to provide any history. There is no family present. According to ER documentation, the patient was brought to the hospital secondary to fever. Patient currently denies any chest pain or pressure. Denies shortness of breath. He was found to have elevated troponins and was started on IV heparin. DIAGNOSTICS: - EKG reveals sinus mechanism with right bundle branch block - Chest xray negative for acute process - Venous Doppler: Negative for DVT bilaterally - VQ scan low or intermediate probability of PE - Laboratory data: WBC 27.9. Hemoglobin 12.6. Platelet count 116. Sodium 135 potassium 4.4. BUN 48. Creatinine 1.84. Troponin 0.047. 0.186. 0.205. - Current home cardiac medications include Cardizem CD 120 mg twice a day - No echocardiogram, stress test, or cardiac catheterization available in EMR for review 07/17/2024 Patient examined this morning. Patient remains in the emergency room waiting for a bed on 3 S. WBC remains elevated at 23.7. He remains on IV heparin. 2D echo is pending. He remains lethargic but mentation is slightly improved this morning. He is able to answer question today and appears more coherent. Family is at the bedside. Denies any history of CAD. 07/18/2024 Patient examined this morning at bedside. Patient without complaints of chest pain or pressure. Denies shortness of breath. He remains on IV heparin. Echocardiogram completed revealing ejection fraction 40-45%, no obvious regional wall motion abnormalities, severe left atrial dilatation, mild mitral regurgitation, moderate tricuspid regurgitation. Chest x-ray this morning reveals airspace opacities in the right lung correlate for right-sided predominant pulmonary edema correlate for pneumonia. PHYSICAL EXAM: VITAL SIGNS: Reviewed. GENERAL: Well-developed in no acute distress. HEENT: Head is normocephalic. Pupils are equal, round. Sclerae anicteric. Mucous membranes of the mouth are moist. Neck supple. No JVD or thyromegaly LUNGS: Respirations even and unlabored. Lungs essentially clear to auscultation bilaterally. HEART: Regular rate and rhythm. S1 and S2 heard. ABDOMEN: Soft. Nondistended. Nontender. EXTREMITIES: Normal range of motion. No clubbing or cyanosis. Peripheral pulses intact. 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 Signing provider agrees with the documented findings, assessment, and plan of care documented by SHOP TAILOR as a scribe. Objective - Vital Signs Vital signs: Vital Signs Temp 97.8 F 07/17/24 20:30 Pulse 59 L 07/18/24 03:40 Resp 16 07/18/24 03:40 BP 142/71 07/18/24 03:40 Pulse Ox 96 07/18/24 03:40 FiO2 Intake & Output 07/17/24 07/18/24 07/18/24 18:59 06:59 18:59 Intake Total 242.804 109.202 Output Total 625 Balance 242.804 -515.798 Weight 68.039 kg 67.1 kg Intake: Intake, IV Titration 242.804 109.202 Amount Heparin Sod,Pork in 0.45% 242.804 109.202 NaCl 25,000 unit In 0.45 % NaCl 1 250ml.bag @ 18 UNITS/KG/HR 12.247 mls/hr IV .[id number] [facility] Rx#: [id number] Output: Urine 625 Other: Voiding Method Indwelling Catheter - Labs CBC & Chem 7: 07/18/24 06:59 07/18/24 06:59 Labs: Abnormal Lab Results - Last 24 Hours (Table) 07/17/24 07/17/24 07/17/24 Range/Units 16:39 18:57 20:35 WBC (3.8-10.6) k/uL Plt Count (150-450) k/uL APTT 37.9 H (22.0-30.0) sec Potassium (3.5-5.1) mmol/L Carbon Dioxide (22-30) mmol/L BUN (9-20) mg/dL Glucose (74-99) mg/dL POC Glucose (mg/dL) 148 H 124 H (70-110) mg/dL Calcium (8.4-10.2) mg/dL Total Protein (6.3-8.2) g/dL Albumin (3.5-5.0) g/dL 07/18/24 07/18/24 07/18/24 Range/Units 05:53 06:59 06:59 WBC 20.2 H (3.8-10.6) k/uL Plt Count 113 L (150-450) k/uL APTT (22.0-30.0) sec Potassium 3.3 L (3.5-5.1) mmol/L Carbon Dioxide 33 H (22-30) mmol/L BUN 26 H (9-20) mg/dL Glucose 134 H (74-99) mg/dL POC Glucose (mg/dL) 132 H (70-110) mg/dL Calcium 8.3 L (8.4-10.2) mg/dL Total Protein 5.1 L (6.3-8.2) g/dL Albumin 2.7 L (3.5-5.0) g/dL 07/18/24 Range/Units 06:59 WBC (3.8-10.6) k/uL Plt Count (150-450) k/uL APTT 38.3 H (22.0-30.0) sec Potassium (3.5-5.1) mmol/L Carbon Dioxide (22-30) mmol/L BUN (9-20) mg/dL Glucose (74-99) mg/dL POC Glucose (mg/dL) (70-110) mg/dL Calcium (8.4-10.2) mg/dL Total Protein (6.3-8.2) g/dL Albumin (3.5-5.0) g/dL Microbiology - Last 24 Hours (Table) 07/16/24 09:39 Blood Culture - Preliminary Blood 07/15/24 20:27 Urine Culture - Preliminary Urine,Catheterized Gram Neg Bacilli
[2024-07-18] MEDS: HEPARIN SODIUM,PORCINE 5,000 UNIT/ML 1 ML VIAL SQ SCH (16:05)
[2024-07-18] MEDS: SPIRONOLACTONE 25 MG TAB PO SCH (16:06)
[2024-07-18 16:21] LABS: Glucose,Whole Blood 93 mg/dL (70-110)
[2024-07-18] MEDS ORDERED: IPRATROPIUM-ALBUTEROL 3 ML NEB INHALATION PRN (17:09)
--- NOTE | 2024-07-18 17:17 | P.PN ---
Subjective Progress Note Date: 07/18/24 Hospital course: Patient is a-year-old male with a past medical history of Parkinson's disease, hypertension, polymyalgia rheumatica, BPH, and bladder cancer status postchemotherapy treatments. Presented to the emergency department with a chief complaint of altered mental status, fevers, and reports of dysuria. Vital signs upon arrival show blood pressure 108/56, heart rate 110, respiratory rate 18, temp 98.2 F, and SpO2 of 92% on 2 L. EKG was completed showing sinus tachycardia at 102 bpm with a right bundle branch block and T wave inversion in inferior leads III and aVF. CT brain negative for acute process. Chest x-ray negative for acute cardiopulmonary process. Labs completed and reviewed. CBC showing leukocytosis with WBC count of 14.6. Coagulation profile showing a low PTT of 21.4 and an elevated D-dimer of 4.35. BMP showing acute kidney injury with BUN of 48, creatinine 2.34, and GFR of 26 with baseline creatinine of 0.8. Blood glucose 79. Magnesium 1.8. Liver profile showing slightly elevated alkaline phosphatase of 131 otherwise normal findings. Ammonia was negative less than 9. Troponin was elevated at 0.047. proBNP 3020. Lipase was low at 21. Albumin also low at 2.6. Urinalysis was positive for protein, ketones, blo od, leukocyte esterase, 12 RBCs and 81 WBCs. Urine drug screen is positive for opiates and otherwise negative. Serum alcohol level was less than 10. Bilateral lower extremity Dopplers completed secondary to elevated D-dimer and were negative for DVT. V/Q scan was nondiagnostic showing a low or intermediate probability for PE. Patient was started on heparin infusion for treatment of elevated troponin. He was admitted under our services with consultation to cardiology. Physical exam: Patient seen and fully evaluated at bedside. His mentation is significantly improving today and patient is alert to person and place but remains somewhat confused to time and situation. Patient no longer having noted active hallucinations at this time. Vital signs reviewed and stable. General: Nontoxic, no distress and appears stated age. Thin, frail build. Derm: Skin warm and dry, normal coloration for ethnicity. Head: Atraumatic, normocephalic and symmetric. Eyes: EOM's intact, no lid lag, and anicteric sclera Mouth: no lip lesions, mucus membranes moist Cardiovascular: regular rate and rhythm with normal S1S2, no murmur, positive posterior tibial pulses bilaterally, and cap refill < 2 seconds. Lungs: Respirations even, regular, and unlabored on room air. Lungs with good air movement, soft rhonchi right lung base otherwise no wheezing, crackles, or rales noted. Abdominal: soft distended, nontender to palpation, no guarding, no appreciable organomegaly Ext: Movement and sensation intact. No gross muscle atrophy, no edema, no contractures Neuro: Speech clear, face symmetrical, patient moving all extremities independently with no noted signs of weakness.. GCS 14. Patient now following all commands. Psych: Alert and oriented to person and place but remains slightly confused to time and situation and events leading up to hospitalization. Assessment and Plan of Care: Elevated troponin, likely type II NSTEMI secondary to underlying infectious process Hypotension, resolved -Cardiology following, reviewed documentation in chart -Troponins trended resulting at 0.047, 0.186, 0.205, and 0.234. -Continue cardiac medication regimen with aspirin 81 mg daily, atorvastatin 40 mg nightly, losartan 25 mg daily, metoprolol 25 mg daily, and Aldactone 12.5 mg daily -Continue telemetry monitoring. -Echocardiogram completed revealing reduced EF of 40-45%, severe left atrial dilation, mild mitral regurgitation, and moderate tricuspid regurgitation. Acute respiratory failure with hypoxia Community-acquired pneumonia -Patient's oxygenation needs increasing from 2 L to 4 L overnight. Believed to be multifactorial secondary to mild fluid overload and possible underlying pneumonia. -Repeat Chest X-ray revealing airspace opacities in the right lung concerning for right sided predominant pulmonary edema with possible pneumonia. -IV antibiotics with Rocephin 2 g daily and Zithromax 500 mg daily. -DuoNebs 4 times daily and as needed for wheezing/shortness of breath. -Cepheid 4 Plex viral panel negative. -Patient to continue with supplemental oxygen as needed to maintain SpO2 equal to or greater than 90%. -Cardiology starting patient on Aldactone 12.5 mg daily. Acute metabolic encephalopathy with delirium and hallucinations E. coli UTI Acute kidney injury, possibly secondary to dehydration with current infection accompanied by hypotension. Sepsis on arrival, secondary to above Leukocytosis Thrombocytopenia -Continue IV antibiotics with Rocephin 2 g daily. -Urine culture positive for E. coli -Blood culture showing no growth to date -Nephrology following, discontinued bicarb infusion this morning. Parkinson's disease -Continue Aricept 10 mg nightly carbidopa/levodopa 25-100 mg tablets 3 times daily. BPH -Continue Flomax 0.4 mg daily and monitor for signs of urinary retention. Data and imaging reviewed: Morning labs reviewed. CBC showing leukocytosis with WBC count of 20.2 and thrombocytopenia with platelet count of 113. BMP showing hypokalemia with potassium of 3.3, hypercarbia with bicarb of 33 and resolution of NOY with BUN of 26, creatinine of 0.86, GFR of greater than 90 from initial 30 on presentation. Vital signs reviewed. Blood pressure 161/70, heart rate 65, respiratory rate 16, temp 98.3 F, and SpO2 of 94% on 4 L. Chest X-ray revealing airspace opacities in the right lung concerning for right sided predominant pulmonary edema with possible pneumonia. CODE STATUS: Full code DVT prophylaxis: Heparin infusion Anticipated discharge date: Pending clinical course Anticipated discharge place: Pending clinical course Patient was seen independently by Nurse Practitioner. This document was prepared using [employer] dictation software. Please allow for errors in membership advisor while rare they do occur. Abrahan Koenig NP rendered care for this patient independently, reviewed the findings and plan as documented in the note above and agree with plan. I did not physically speak with or examine the patient on this date. Objective - Vital Signs Vital signs: Vital Signs Temp 97.8 F 07/17/24 20:30 Pulse 59 L 07/18/24 03:40 Resp 16 07/18/24 03:40 BP 142/71 07/18/24 03:40 Pulse Ox 96 07/18/24 03:40 FiO2 Intake & Output 07/17/24 07/18/24 07/18/24 18:59 06:59 18:59 Intake Total 242.804 109.202 Output Total 625 Balance 242.804 -515.798 Weight 68.039 kg 67.1 kg Intake: Intake, IV Titration 242.804 109.202 Amount Heparin Sod,Pork in 0.45% 242.804 109.202 NaCl 25,000 unit In 0.45 % NaCl 1 250ml.bag @ 18 UNITS/KG/HR 12.247 mls/hr IV .[id number] [facility] Rx#: [id number] Output: Urine 625 Other: Voiding Method Indwelling Catheter - Labs CBC & Chem 7: 07/18/24 06:59 07/18/24 06:59 Labs: Abnormal Lab Results - Last 24 Hours (Table) 07/17/24 07/17/24 07/17/24 Range/Units 07:53 07:53 07:53 WBC 23.7 H (3.8-10.6) k/uL RBC 4.27 L (4.30-5.90) m/uL Plt Count 105 L (150-450) k/uL APTT 33.3 H (22.0-30.0) sec Potassium 3.4 L (3.5-5.1) mmol/L Carbon Dioxide (22-30) mmol/L BUN 34 H (9-20) mg/dL Glucose (74-99) mg/dL POC Glucose (mg/dL) (70-110) mg/dL Calcium 8.2 L (8.4-10.2) mg/dL Total Protein 5.0 L (6.3-8.2) g/dL Albumin 2.6 L (3.5-5.0) g/dL 07/17/24 07/17/24 07/17/24 Range/Units 16:39 18:57 20:35 WBC (3.8-10.6) k/uL RBC (4.30-5.90) m/uL Plt Count (150-450) k/uL APTT 37.9 H (22.0-30.0) sec Potassium (3.5-5.1) mmol/L Carbon Dioxide (22-30) mmol/L BUN (9-20) mg/dL Glucose (74-99) mg/dL POC Glucose (mg/dL) 148 H 124 H (70-110) mg/dL Calcium (8.4-10.2) mg/dL Total Protein (6.3-8.2) g/dL Albumin (3.5-5.0) g/dL 07/18/24 07/18/24 07/18/24 Range/Units 05:53 06:59 06:59 WBC 20.2 H (3.8-10.6) k/uL RBC (4.30-5.90) m/uL Plt Count 113 L (150-450) k/uL APTT (22.0-30.0) sec Potassium 3.3 L (3.5-5.1) mmol/L Carbon Dioxide 33 H (22-30) mmol/L BUN 26 H (9-20) mg/dL Glucose 134 H (74-99) mg/dL POC Glucose (mg/dL) 132 H (70-110) mg/dL Calcium 8.3 L (8.4-10.2) mg/dL Total Protein 5.1 L (6.3-8.2) g/dL Albumin 2.7 L (3.5-5.0) g/dL 07/18/24 Range/Units 06:59 WBC (3.8-10.6) k/uL RBC (4.30-5.90) m/uL Plt Count (150-450) k/uL APTT 38.3 H (22.0-30.0) sec Potassium (3.5-5.1) mmol/L Carbon Dioxide (22-30) mmol/L BUN (9-20) mg/dL Glucose (74-99) mg/dL POC Glucose (mg/dL) (70-110) mg/dL Calcium (8.4-10.2) mg/dL Total Protein (6.3-8.2) g/dL Albumin (3.5-5.0) g/dL Microbiology - Last 24 Hours (Table) 07/16/24 09:39 Blood Culture - Preliminary Blood 07/15/24 20:27 Urine Culture - Preliminary Urine,Catheterized Gram Neg Bacilli
[2024-07-18 20:13] LABS: Glucose,Whole Blood 170 mg/dL (70-110)
[2024-07-18] MEDS: IPRATROPIUM-ALBUTEROL 3 ML NEB INHALATION SCH (21:15)
[2024-07-19 05:56] LABS: Glucose,Whole Blood 102 mg/dL (70-110)
[2024-07-19 07:10] LABS: HCT 42.8 % (39.0-53.0); HGB 14.3 gm/dL (13.0-17.5); MCHC 33.5 g/dL (31.0-37.0); MCV 95.5 fL (80.0-100.0); Mean Platelet Volume 11.2; Platelet Count 102 k/uL (150-450); RBC 4.48 m/uL (4.30-5.90); RDW 14.8 % (11.5-15.5); WBC 14.7 k/uL (3.8-10.6)
[2024-07-19 07:24] LABS: ALT 7 U/L (4-49); AST 21 U/L (17-59); African American GFR (CKD) >90 (>60 ml/min/1.73 sqM); Albumin 2.5 g/dL (3.5-5.0); Alkaline Phosphatase 86 U/L (38-126); Anion Gap 5 mmol/L; Blood Urea Nitrogen 20 mg/dL (9-20); Calcium 8.6 mg/dL (8.4-10.2); Carbon Dioxide 30 mmol/L (22-30); Chloride 105 mmol/L (98-107); Glucose 87 mg/dL (74-99); Magnesium 2.2 mg/dL (1.6-2.3); Non-African American GFR(CKD) 83 (>60 ml/min/1.73 sqM); Potassium 4.1 mmol/L (3.5-5.1); Sodium 140 mmol/L (137-145); Total Bilirubin 0.4 mg/dL (0.2-1.3)
[2024-07-19] MEDS: SPIRONOLACTONE 25 MG TAB PO SCH (09:41)
[2024-07-19] MEDS: METOPROLOL SUCCINATE (ER) 25 MG TAB.ER.24H PO SCH (09:41)
--- NOTE | 2024-07-19 10:20 | XR ---
EXAMINATION TYPE: XR chest 1V portable DATE OF EXAM: 07/19/2024 CLINICAL HISTORY: Cough. TECHNIQUE: Single AP portable upright view of the chest is obtained. COMPARISON: Chest x-ray from 2 days earlier FINDINGS: Persistent increased opacity right upper lobe and left greater than right lower lungs. Car diac silhouette size stable and within normal limits. Atherosclerotic thoracic aorta. Osseous structu res are intact. IMPRESSION: Persistent right upper lung and left greater than right bibasilar acute infiltrate and/or atelectasis and small left pleural effusion. No significant change from most recent prior. [facility], , 07/19/2024 10:17 AM
[2024-07-19] MEDS: HYDROcodone/APAP 5-325MG 1 EACH TAB PO PRN (11:03)
--- NOTE | 2024-07-19 11:21 | P.PN ---
Subjective HISTORY OF PRESENT ILLNESS: This is a 79-year-old male with a past medical history significant for Parkinson's, hypertension, and BPH. Patient does not follow with a collection coordinator. We have been asked to see the patient in consultation for elevated troponins. Patient examined at the bedside in the emergency room. The patient is confused at the time of examination unable to provide any history. There is no family present. According to ER documentation, the patient was brought to the hospital secondary to fever. Patient currently denies any chest pain or pressure. Denies shortness of breath. He was found to have elevated troponins and was started on IV heparin. DIAGNOSTICS: - EKG reveals sinus mechanism with right bundle branch block - Chest xray negative for acute process - Venous Doppler: Negative for DVT bilaterally - VQ scan low or intermediate probability of PE - Laboratory data: WBC 27.9. Hemoglobin 12.6. Platelet count 116. Sodium 135 potassium 4.4. BUN 48. Creatinine 1.84. Troponin 0.047. 0.186. 0.205. - Current home cardiac medications include Cardizem CD 120 mg twice a day - No echocardiogram, stress test, or cardiac catheterization available in EMR for review 07/17/2024 Patient examined this morning. Patient remains in the emergency room waiting for a bed on 3 S. WBC remains elevated at 23.7. He remains on IV heparin. 2D echo is pending. He remains lethargic but mentation is slightly improved this morning. He is able to answer question today and appears more coherent. Family is at the bedside. Denies any history of CAD. 07/18/2024 Patient examined this morning at bedside. Patient without complaints of chest pain or pressure. Denies shortness of breath. He remains on IV heparin. Echocardiogram completed revealing ejection fraction 40-45%, no obvious regional wall motion abnormalities, severe left atrial dilatation, mild mitral regurgitation, moderate tricuspid regurgitation. Chest x-ray this morning reveals airspace opacities in the right lung correlate for right-sided predominant pulmonary edema correlate for pneumonia. 07/19/2024 Patient examined this morning at the bedside. Patient currently denies chest pain or pressure. He denies shortness of breath. He reports nausea and states that he has not been eating much. He denies any abdominal pain. Vital signs are stable. Blood pressures elevated in the 160s. PHYSICAL EXAM: VITAL SIGNS: Reviewed. GENERAL: Well-developed in no acute distress. HEENT: Head is normocephalic. Pupils are equal, round. Sclerae anicteric. Mucous membranes of the mouth are moist. Neck supple. No JVD or thyromegaly LUNGS: Respirations even and unlabored. Lungs essentially clear to auscultation bilaterally. HEART: Regular rate and rhythm. S1 and S2 heard. ABDOMEN: Soft. Nondistended. Nontender. EXTREMITIES: Normal range of motion. No clubbing or cyanosis. Peripheral pulses intact. No lower extremity edema NEUROLOGIC: Confused ASSESSMENT: Altered mental status Acute kidney injury Elevated troponins, likely type II ME, no evidence of acute coronary syndrome Sepsis with fevers, tachycardia, hypotension, and leukocytosis Possible urinary tract infection History of hypertension History of bladder cancer, in remission for 2 years Cardiomyopathy, 40 to 45%, ischemic versus nonischemic PLAN: Continue aspirin and atorvastatin Continue metoprolol succinate and losartan Increase Aldactone to 25 mg daily Continue with conservative management at this time Stable for discharge from a cardiac standpoint Further recommendations pending patient course Nurse practitioner note has been reviewed by physician. Signing provider agrees with the documented findings, assessment, and plan of care documented by HAT FINISHING [employer]ERIALS PREPARER as a scribe. Objective - Vital Signs Vital signs: Vital Signs Temp 98.9 F 07/18/24 20:30 Pulse 64 07/19/24 08:02 Resp 14 07/19/24 04:20 BP 163/71 07/19/24 04:20 Pulse Ox 91 L 07/19/24 07:53 FiO2 Intake & Output 07/18/24 07/19/24 07/19/24 18:59 06:59 18:59 Intake Total 140.798 Output Total 600 800 Balance -459.202 -800 Weight 67 kg Intake: Intake, IV Titration 140.798 Amount Heparin Sod,Pork in 0.45% 140.798 NaCl 25,000 unit In 0.45 % NaCl 1 250ml.bag @ 18 UNITS/KG/HR 12.247 mls/hr IV .[id number] [facility] Rx#: [id number] Output: Urine 600 800 Other: Voiding Method Indwelling Catheter Indwelling Catheter - Labs CBC & Chem 7: 07/19/24 05:48 07/19/24 05:48 Labs: Abnormal Lab Results - Last 24 Hours (Table) 07/18/24 07/18/24 07/19/24 Range/Units 11:41 20:11 05:48 WBC 14.7 H (3.8-10.6) k/uL Plt Count 102 L (150-450) k/uL POC Glucose (mg/dL) 163 H 170 H (70-110) mg/dL Total Protein (6.3-8.2) g/dL Albumin (3.5-5.0) g/dL 07/19/24 Range/Units 05:48 WBC (3.8-10.6) k/uL Plt Count (150-450) k/uL POC Glucose (mg/dL) (70-110) mg/dL Total Protein 5.0 L (6.3-8.2) g/dL Albumin 2.5 L (3.5-5.0) g/dL Microbiology - Last 24 Hours (Table) 07/16/24 09:39 Blood Culture - Preliminary Blood 07/15/24 20:27 Urine Culture - Final Urine,Catheterized Escherichia coli
[2024-07-19 11:38] LABS: Glucose,Whole Blood 109 mg/dL (70-110)
--- NOTE | 2024-07-19 13:15 | P.PN ---
Subjective Patient is seen for follow-up for acute kidney injury. Renal function has improved. Serum creatinine down to 0.8 from 2.3 on initial admission. Status post IV fluids. Objective - Vital Signs Vital signs: Vital Signs Temp 98.8 F 07/19/24 08:15 Pulse 68 07/19/24 11:23 Resp 16 07/19/24 08:15 BP 166/65 07/19/24 08:15 Pulse Ox 91 L 07/19/24 08:15 FiO2 Intake & Output 07/18/24 07/19/24 07/19/24 18:59 06:59 18:59 Intake Total 140.798 Output Total 600 800 Balance -459.202 -800 Weight 67 kg Intake: Intake, IV Titration 140.798 Amount Heparin Sod,Pork in 0.45% 140.798 NaCl 25,000 unit In 0.45 % NaCl 1 250ml.bag @ 18 UNITS/KG/HR 12.247 mls/hr IV .[id number] [facility] Rx#: [id number] Output: Urine 600 800 Other: Voiding Method Indwelling Catheter Indwelling Catheter Indwelling Catheter # Bowel Movements 1 - Exam Patient is awake, comfortable Examination of the heart S1 and S2 Examination of the lungs bilateral breath sounds are heard Abdomen is soft nontender Examination of lower extremities shows no edema ORDER CHECKER exam shows patient is moving all 4 extremities. He has been confused - Labs CBC & Chem 7: 07/19/24 05:48 07/19/24 05:48 Labs: Abnormal Lab Results - Last 24 Hours (Table) 07/18/24 07/19/24 07/19/24 Range/Units 20:11 05:48 05:48 WBC 14.7 H (3.8-10.6) k/uL Plt Count 102 L (150-450) k/uL POC Glucose (mg/dL) 170 H (70-110) mg/dL Total Protein 5.0 L (6.3-8.2) g/dL Albumin 2.5 L (3.5-5.0) g/dL Microbiology - Last 24 Hours (Table) 07/16/24 09:39 Blood Culture - Preliminary Blood 07/15/24 20:27 Urine Culture - Final Urine,Catheterized Escherichia coli Assessment and Plan Assessment: 1. Acute kidney injury, ATN secondary to hypotension and exacerbated with use of Celebrex. Status post IV fluids. Renal function is significantly improved 2. Non gap metabolic acidosis secondary to acute kidney injury, resolved 3. Elevated troponins, no acute coronary event 4. Mental status changes most likely associated with underlying infection and hypotension 5. UTI with urine culture growing gram-negative bacilli 6. History of hypertension with blood pressure currently low Plan: Continue off of IV fluids We will sign off
--- NOTE | 2024-07-19 14:41 | P.PN ---
Subjective Progress Note Date: 07/19/24 Hospital Course: Patient is a-year-old male with a past medical history of Parkinson's disease, hypertension, polymyalgia rheumatica, BPH, and bladder cancer status postchemotherapy treatments. Presented to the emergency department with a chief complaint of altered mental status, fevers, and reports of dysuria. Vital signs upon arrival show blood pressure 108/56, heart rate 110, respiratory rate 18, temp 98.2 F, and SpO2 of 92% on 2 L. EKG was completed showing sinus tachycardia at 102 bpm with a right bundle branch block and T wave inversion in inferior leads III and aVF. CT brain negative for acute process. Chest x-ray negative for acute cardiopulmonary process. Labs completed and reviewed. CBC showing leukocytosis with WBC count of 14.6. Coagulation profile showing a low PTT of 21.4 and an elevated D-dimer of 4.35. BMP showing acute kidney injury with BUN of 48, creatinine 2.34, and GFR of 26 with baseline creatinine of 0.8. Blood glucose 79. Magnesium 1.8. Liver profile showing slightly elevated alkaline phosphatase of 131 otherwise normal findings. Ammonia was negative less than 9. Troponin was elevated at 0.047. proBNP 3020. Lipase was low at 21. Albumin also low at 2.6. Urinalysis was positive for protein, ketones, blood, leukocyte esterase, 12 RBCs and 81 WBCs. Urine drug screen is positive for opiates and otherwise negative. Serum alcohol level was less than 10. Bilateral lower extremity Dopplers completed secondary to elevated D-dimer and were negative for DVT. V/Q scan was nondiagnostic showing a low or intermediate probability for PE. Patient was started on heparin infusion for treatment of elevated troponin. He was admitted under our services with consultation to cardiology. Echocardiogram showed reduced EF 40 to 45%, moderate tricuspid regurgitation. Patient also has acute hypoxic respiratory failure, continued on IV antibiotics. Urine cultures positive for pansensitive E. coli. Mental status close to baseline. Renal function normalized. Subjective: Patient seen and examined at bedside. No acute events overnight. Montgomery catheter in place Pertinent positives and negatives as discussed above, a complete review of systems was performed and all other systems are negative. Vitals Signs Reviewed. General: Nontoxic, no distress, appears at stated age Derm: Warm, dry Head: Atraumatic, normocephalic, symmetric Eyes: EOMI, no lid lag, anicteric sclera Mouth: No lip lesion, mucus membranes moist Cardiovascular: S1S2 reg, no murmur Lungs: Bilateral Rales, no accessory muscle use, supplemental oxygen Abdominal: Soft, nontender to palpation, no guarding, no appreciable organomegaly Ext: No gross muscle atrophy, no edema, no contractures Neuro: CN II-XI grossly intact, no focal neuro deficits Psych: Alert, oriented x 2, appropriate affect Data Reviewed Today: Pertinent Labs: WBC 14.7, hemoglobin 14.3, potassium 4.1, creatinine 0.88, magnesium 2.2, blood sugars range between 87-1 70 Imaging: Chest x-ray independently interpreted, persistent bilateral interstitial opacities more pronounced on right upper lobe Assessment and Plan: Active: Acute metabolic encephalopathy, at baseline Parkinson's disease with dementia E. coli UTI Acute hypoxic respiratory failure Community-acquired pneumonia Sepsis secondary to above, resolved Type II NSTEMI Systolic cardiomyopathy, unclear if ischemic versus nonischemic Hypotension, resolved NOY, resolved -Continue ceftriaxone 2 g IV every 24 hours, azithromycin 500 mg IV daily -DuoNebs 4 times daily, 4 times daily as needed, continue to wean oxygen -Discontinue Montgomery catheter once patient is more ambulatory, continue Flomax 0.4 daily -Continue Sinemet 25-100 3 times daily, Aricept 10 -Cardiology note reviewed, continue aspirin 81 mg, atorvastatin 40, metoprolol 25 mg daily, losartan 25 daily, spironolactone 25 daily, may be discharge -Nephrology note reviewed, signed off Chronic: Depression/anxiety Neuropathy DVT ppx: Subcu heparin Code status: Full code Anticipated discharge place: Subacute rehab Anticipated discharge time: Wean oxygen, pending clinical course Objective - Vital Signs Vital signs: Vital Signs Temp 98.8 F 07/19/24 08:15 Pulse 68 07/19/24 11:23 Resp 16 07/19/24 08:15 BP 166/65 07/19/24 08:15 Pulse Ox 91 L 07/19/24 08:15 FiO2 Intake & Output 07/18/24 07/19/24 07/19/24 18:59 06:59 18:59 Intake Total 140.798 Output Total 600 800 Balance -459.202 -800 Weight 67 kg Intake: Intake, IV Titration 140.798 Amount Heparin Sod,Pork in 0.45% 140.798 NaCl 25,000 unit In 0.45 % NaCl 1 250ml.bag @ 18 UNITS/KG/HR 12.247 mls/hr IV .[id number] [facility] Rx#: [id number] Output: Urine 600 800 Other: Voiding Method Indwelling Catheter Indwelling Catheter Indwelling Catheter # Bowel Movements 1 - Labs CBC & Chem 7: 07/19/24 05:48 07/19/24 05:48 Labs: Abnormal Lab Results - Last 24 Hours (Table) 07/18/24 07/19/24 07/19/24 Range/Units 20:11 05:48 05:48 WBC 14.7 H (3.8-10.6) k/uL Plt Count 102 L (150-450) k/uL POC Glucose (mg/dL) 170 H (70-110) mg/dL Total Protein 5.0 L (6.3-8.2) g/dL Albumin 2.5 L (3.5-5.0) g/dL Microbiology - Last 24 Hours (Table) 07/16/24 09:39 Blood Culture - Preliminary Blood 07/15/24 20:27 Urine Culture - Final Urine,Catheterized Escherichia coli
[2024-07-19 16:53] LABS: Glucose,Whole Blood 190 mg/dL (70-110)
[2024-07-19 20:24] LABS: Glucose,Whole Blood 102 mg/dL (70-110)
[2024-07-20 05:58] LABS: Glucose,Whole Blood 104 mg/dL (70-110)
[2024-07-20 07:17] LABS: Basophils % (A) 0 %; Eosinophils % (A) 0 %; HCT 40.1 % (39.0-53.0); HGB 12.6 gm/dL (13.0-17.5); Lymphocytes # (A) 1.7 k/uL (1.0-4.8); Lymphocytes % (A) 14 %; MCH 30.1 pg (25.0-35.0); MCHC 31.3 g/dL (31.0-37.0); MCV 96.1 fL (80.0-100.0); Monocytes # (A) 0.9 k/uL (0-1.0); Monocytes % (A) 8 %; Neutrophils % (A) 74 %; Platelet Count 121 k/uL (150-450); RBC 4.18 m/uL (4.30-5.90); RDW 14.3 % (11.5-15.5); WBC 12.2 k/uL (3.8-10.6)
[2024-07-20 07:38] LABS: African American GFR (CKD) >90 (>60 ml/min/1.73 sqM); Anion Gap 2 mmol/L; Blood Urea Nitrogen 15 mg/dL (9-20); Calcium 8.3 mg/dL (8.4-10.2); Carbon Dioxide 31 mmol/L (22-30); Chloride 103 mmol/L (98-107); Glucose 100 mg/dL (74-99); Non-African American GFR(CKD) 84 (>60 ml/min/1.73 sqM); Potassium 3.7 mmol/L (3.5-5.1); Sodium 136 mmol/L (137-145)
--- NOTE | 2024-07-20 11:05 | P.PN ---
Subjective Patient is seen for follow-up for acute kidney injury. Renal function has improved. Serum creatinine down to 0.8 from 2.3 on initial admission. Status post IV fluids. Objective - Vital Signs Vital signs: Vital Signs Temp 97.8 F 07/20/24 03:32 Pulse 72 07/20/24 08:16 Resp 16 07/20/24 03:32 BP 165/72 07/20/24 03:32 Pulse Ox 93 L 07/20/24 03:32 FiO2 Intake & Output 07/19/24 07/20/24 07/20/24 18:59 06:59 18:59 Other: Voiding Method Indwelling Catheter Indwelling Catheter # Bowel Movements 1 - Exam Patient is awake, comfortable Examination of the heart S1 and S2 Examination of the lungs bilateral breath sounds are heard Abdomen is soft nontender Examination of lower extremities shows no edema HALL MONITOR exam shows patient is moving all 4 extremities. - Labs CBC & Chem 7: 07/20/24 06:45 07/20/24 06:45 Labs: Abnormal Lab Results - Last 24 Hours (Table) 07/19/24 07/20/24 07/20/24 Range/Units 16:52 06:45 06:45 WBC 12.2 H (3.8-10.6) k/uL RBC 4.18 L (4.30-5.90) m/uL Hgb 12.6 L (13.0-17.5) gm/dL Plt Count 121 L (150-450) k/uL Neutrophils # 9.0 H (1.3-7.7) k/uL Sodium 136 L (137-145) mmol/L Carbon Dioxide 31 H (22-30) mmol/L Glucose 100 H (74-99) mg/dL POC Glucose (mg/dL) 190 H (70-110) mg/dL Calcium 8.3 L (8.4-10.2) mg/dL Microbiology - Last 24 Hours (Table) 07/16/24 09:39 Blood Culture - Preliminary Blood Assessment and Plan Assessment: 1. Acute kidney injury, ATN secondary to hypotension and exacerbated with use of Celebrex. Status post IV fluids. Renal function is significantly improved 2. Non gap metabolic acidosis secondary to acute kidney injury, resolved 3. Elevated troponins, no acute coronary event 4. Mental status changes most likely associated with underlying infection and hypotension 5. UTI with urine culture growing gram-negative bacilli 6. History of hypertension with blood pressure currently low Plan: Continue off of IV fluids We will sign off
[2024-07-20 11:22] VITALS: BMI 23.1
[2024-07-20 11:36] LABS: Glucose,Whole Blood 176 mg/dL (70-110)
--- NOTE | 2024-07-20 12:40 | P.PN ---
Subjective Progress Note Date: 07/20/24 HISTORY OF PRESENT ILLNESS: This is a 79-year-old male with a past medical history significant for Park inson's, hypertension, and BPH. Patient does not follow with a frog catcher. We have been asked to see the patient in consultation for elevated troponins. Patient examined at the bedside in the emergency room. The patient is confused at the time of examination unable to provide any history. There is no family present. According to ER documentation, the patient was brought to the hospital secondary to fever. Patient currently denies any chest pain or pressure. Denies shortness of breath. He was found to have elevated troponins and was started on IV heparin. DIAGNOSTICS: - EKG reveals sinus mechanism with right bundle branch block - Chest xray negative for acute process - Venous Doppler: Negative for DVT bilaterally - VQ scan low or intermediate probability of PE - Laboratory data: WBC 27.9. Hemoglobin 12.6. Platelet count 116. Sodium 135 potassium 4.4. BUN 48. Creatinine 1.84. Troponin 0.047. 0.186. 0.205. - Current home cardiac medications include Cardizem CD 120 mg twice a day - No echocardiogram, stress test, or cardiac catheterization available in EMR for review 07/17/2024 Patient examined this morning. Patient remains in the emergency room waiting for a bed on 3 S. WBC remains elevated at 23.7. He remains on IV heparin. 2D echo is pending. He remains lethargic but mentation is slightly improved this morning. He is able to answer question today and appears more coherent. Family is at the bedside. Denies any history of CAD. 07/18/2024 Patient examined this morning at bedside. Patient without complaints of chest pain or pressure. Denies shortness of breath. He remains on IV heparin. Echocardiogram completed revealing ejection fraction 40-45%, no obvious regional wall motion abnormalities, severe left atrial dilatation, mild mitral regurgitation, moderate tricuspid regurgitation. Chest x-ray this morning reveals airspace opacities in the right lung correlate for right-sided predominant pulmonary edema correlate for pneumonia. 07/19/2024 Patient examined this morning at the bedside. Patient currently denies chest pain or pressure. He denies shortness of breath. He reports nausea and states that he has not been eating much. He denies any abdominal pain. Vital signs are stable. Blood pressures elevated in the 160s. 07/20/2024 He has been doing okay. Still has no appetite and is feeling nauseous. He is tolerating Gatorade and plans to try solid food tomorrow. No chest pain or shortness of breath. PHYSICAL EXAM: VITAL SIGNS: Reviewed. GENERAL: Well-developed in no acute distress. HEENT: Head is normocephalic. Pupils are equal, round. Sclerae anicteric. Mucous membranes of the mouth are moist. Neck supple. No JVD or thyromegaly LUNGS: Respirations even and unlabored. Lungs essentially clear to auscultation bilaterally. HEART: Regular rate and rhythm. S1 and S2 heard. ABDOMEN: Soft. Nondistended. Nontender. EXTREMITIES: Normal range of motion. No clubbing or cyanosis. Peripheral pulses intact. No lower extremity edema NEUROLOGIC: Confused ASSESSMENT: Altered mental status Acute kidney injury Elevated troponins, likely type II ID, no evidence of acute coronary syndrome Sepsis with fevers, tachycardia, hypotension, and leukocytosis Possible urinary tract infection History of hypertension History of bladder cancer, in remission for 2 years Cardiomyopathy, 40 to 45%, ischemic versus nonischemic PLAN: Continue aspirin and atorvastatin Continue metoprolol succinate and losartan Continue current regimen Continue with conservative management at this time Cardiology to sign off, please call with any questions or concerns. Follow-up in office in 1 week. Nurse practitioner note has been reviewed by physician. Signing provider agrees with the documented findings, assessment, and plan of care documented by MACHINE DESIGNER as a scribe. Objective - Vital Signs Vital signs: Vital Signs Temp 98.1 F 07/20/24 08:20 Pulse 72 07/20/24 11:46 Resp 16 07/20/24 08:20 BP 159/72 07/20/24 08:20 Pulse Ox 89 L 07/20/24 08:20 FiO2 Intake & Output 07/19/24 07/20/24 07/20/24 18:59 06:59 18:59 Weight 67 kg Other: Voiding Method Indwelling Catheter Indwelling Catheter Indwelling Catheter # Bowel Movements 1 - Labs CBC & Chem 7: 07/20/24 06:45 07/20/24 06:45 Labs: Abnormal Lab Results - Last 24 Hours (Table) 07/19/24 07/20/24 07/20/24 Range/Units 16:52 06:45 06:45 WBC 12.2 H (3.8-10.6) k/uL RBC 4.18 L (4.30-5.90) m/uL Hgb 12.6 L (13.0-17.5) gm/dL Plt Count 121 L (150-450) k/uL Neutrophils # 9.0 H (1.3-7.7) k/uL Sodium 136 L (137-145) mmol/L Carbon Dioxide 31 H (22-30) mmol/L Glucose 100 H (74-99) mg/dL POC Glucose (mg/dL) 190 H (70-110) mg/dL Calcium 8.3 L (8.4-10.2) mg/dL 07/20/24 Range/Units 11:35 WBC (3.8-10.6) k/uL RBC (4.30-5.90) m/uL Hgb (13.0-17.5) gm/dL Plt Count (150-450) k/uL Neutrophils # (1.3-7.7) k/uL Sodium (137-145) mmol/L Carbon Dioxide (22-30) mmol/L Glucose (74-99) mg/dL POC Glucose (mg/dL) 176 H (70-110) mg/dL Calcium (8.4-10.2) mg/dL Microbiology - Last 24 Hours (Table) 07/16/24 09:39 Blood Culture - Preliminary Blood
--- NOTE | 2024-07-20 14:23 | P.PN ---
Subjective Progress Note Date: 07/20/24 Pt still not eating well. O2 requirement is 4L NC, and he is not typically on oxygen at home per patient. Gen: In NAD, non-toxic HEENT: normocephalic, atraumatic, hearing acuity is intant, mucous membranes moist CVS: perfusing all extremities well, no pitting edema, Respiratory: symmetric chest expansion, no accessory muscle use, GI: soft, NTTP, ND, : no suprapubic tenderness, no CVA tenderness MSK/Derm: no rashes, cyanosis Neuro: CN II-XII intact, no motor weakness, Psych: cooperative, euthymic mood, judgment and insight is intact Hospital course: Patient is a-year-old male with a past medical history of Parkinson's disease, hypertension, polymyalgia rheumatica, BPH, and bladder cancer status postchemotherapy treatments. Presented to the emergency department with a chief complaint of altered mental status, fevers, and reports of dysuria. Vital signs upon arrival show blood pressure 108/56, heart rate 110, respiratory rate 18, temp 98.2 F, and SpO2 of 92% on 2 L. EKG was completed showing sinus tachycardia at 102 bpm with a right bundle branch block and T wave inversion in inferior leads III and aVF. CT brain negative for acute process. Chest x-ray negative for acute cardiopulmonary process. Labs completed and reviewed. CBC showing leukocytosis with WBC count of 14.6. Coagulation profile showing a low PTT of 21.4 and an elevated D-dimer of 4.35. BMP showing acute kidney injury with BUN of 48, creatinine 2.34, and GFR of 26 with baseline creatinine of 0.8. Blood glucose 79. Magnesium 1.8. Liver profile showing slightly elevated alkaline phosphatase of 131 otherwise normal findings. Ammonia was negative less than 9. Troponin was elevated at 0.047. proBNP 3020. Lipase was low at 21. Albumin also low at 2.6. Urinalysis was positive for protein, ketones, blood, leukocyte esterase, 12 RBCs and 81 WBCs. Urine drug screen is positive for opiates and otherwise negative. Serum alcohol level was less than 10. Bilateral lower extremity Dopplers completed secondary to elevated D-dimer and were negative for DVT. V/Q scan was nondiagnostic showing a low or intermediate probability for PE. Patient was started on heparin infusion for treatment of elevated troponin. He was admitted under our services with consultation to cardiology. Echocardiogram showed reduced EF 40 to 45%, moderate tricuspid regurgitation. Patient also has acute hypoxic respiratory failure, continued on IV antibiotics. Urine cultures positive for pansensitive E. coli. Mental status close to baseline. Renal function normalized. Assessment and Plan: Active: Acute metabolic encephalopathy, at baseline Parkinson's disease with dementia E. coli UTI Acute hypoxic respiratory failure Community-acquired pneumonia Sepsis secondary to above, resolved Type II NSTEMI Systolic cardiomyopathy, unclear if ischemic versus nonischemic Hypotension, resolved NOY, resolved -Continue ceftriaxone 2 g IV every 24 hours for 1 additional day, azithromycin 500 mg IV daily -DuoNebs 4 times daily, 4 times daily as needed, continue to wean oxygen -Discontinue Montgomery catheter once patient is more ambulatory, continue Flomax 0.4 daily -Continue Sinemet 25-100 3 times daily, Aricept 10 -Cardiology note reviewed, continue aspirin 81 mg, atorvastatin 40, metoprolol 25 mg daily, losartan 25 daily, spironolactone 25 daily, may be discharge, they signed off -Nephrology note reviewed, signed off Protein calorie malnutrition, moderate -Dietitian consult Chronic: Depression/anxiety Neuropathy DVT ppx: Subcu heparin Code status: Full code Anticipated discharge place: Subacute rehab, insurance authorization is pending Anticipated discharge time: Wean oxygen, pending clinical course Objective - Vital Signs Vital signs: Vital Signs Temp 98.1 F 07/20/24 08:20 Pulse 67 07/20/24 12:00 Resp 18 07/20/24 12:00 BP 159/72 07/20/24 12:00 Pulse Ox 92 L 07/20/24 12:00 FiO2 Intake & Output 07/19/24 07/20/24 07/20/24 18:59 06:59 18:59 Weight 67 kg Other: Voiding Method Indwelling Catheter Indwelling Catheter Indwelling Catheter # Bowel Movements 1 - Labs CBC & Chem 7: 07/20/24 06:45 07/20/24 06:45 Labs: Abnormal Lab Results - Last 24 Hours (Table) 07/19/24 07/20/24 07/20/24 Range/Units 16:52 06:45 06:45 WBC 12.2 H (3.8-10.6) k/uL RBC 4.18 L (4.30-5.90) m/uL Hgb 12.6 L (13.0-17.5) gm/dL Plt Count 121 L (150-450) k/uL Neutrophils # 9.0 H (1.3-7.7) k/uL Sodium 136 L (137-145) mmol/L Carbon Dioxide 31 H (22-30) mmol/L Glucose 100 H (74-99) mg/dL POC Glucose (mg/dL) 190 H (70-110) mg/dL Calcium 8.3 L (8.4-10.2) mg/dL 07/20/24 Range/Units 11:35 WBC (3.8-10.6) k/uL RBC (4.30-5.90) m/uL Hgb (13.0-17.5) gm/dL Plt Count (150-450) k/uL Neutrophils # (1.3-7.7) k/uL Sodium (137-145) mmol/L Carbon Dioxide (22-30) mmol/L Glucose (74-99) mg/dL POC Glucose (mg/dL) 176 H (70-110) mg/dL Calcium (8.4-10.2) mg/dL Microbiology - Last 24 Hours (Table) 07/16/24 09:39 Blood Culture - Preliminary Blood
[2024-07-20 16:58] LABS: Glucose,Whole Blood 94 mg/dL (70-110)
[2024-07-20 21:32] LABS: Glucose,Whole Blood 113 mg/dL (70-110)
[2024-07-21 06:24] LABS: Glucose,Whole Blood 89 mg/dL (70-110)
[2024-07-21 08:12] LABS: Basophils # (A) 0.1 k/uL (0-0.2); Basophils % (A) 1 %; Eosinophils # (A) 0.1 k/uL (0-0.7); Eosinophils % (A) 1 %; HCT 41.8 % (39.0-53.0); HGB 13.5 gm/dL (13.0-17.5); Lymphocytes # (A) 2.2 k/uL (1.0-4.8); Lymphocytes % (A) 13 %; MCH 31.1 pg (25.0-35.0); MCHC 32.3 g/dL (31.0-37.0); MCV 96.5 fL (80.0-100.0); Mean Platelet Volume 9.8; Monocytes # (A) 0.8 k/uL (0-1.0); Monocytes % (A) 5 %; Neutrophils # (A) 12.7 k/uL (1.3-7.7); Neutrophils % (A) 78 %; Platelet Count 164 k/uL (150-450); RBC 4.33 m/uL (4.30-5.90); RDW 14.3 % (11.5-15.5); WBC 16.3 k/uL (3.8-10.6)
[2024-07-21 08:47] LABS: African American GFR (CKD) >90 (>60 ml/min/1.73 sqM); Anion Gap 5 mmol/L; Blood Urea Nitrogen 13 mg/dL (9-20); Calcium 8.6 mg/dL (8.4-10.2); Carbon Dioxide 28 mmol/L (22-30); Chloride 102 mmol/L (98-107); Glucose 83 mg/dL (74-99); Magnesium 1.8 mg/dL (1.6-2.3); Non-African American GFR(CKD) 85 (>60 ml/min/1.73 sqM); Potassium 3.7 mmol/L (3.5-5.1); Sodium 135 mmol/L (137-145)
[2024-07-21 11:23] LABS: Glucose,Whole Blood 96 mg/dL (70-110)
--- NOTE | 2024-07-21 12:19 | XR ---
EXAMINATION TYPE: XR chest 2V DATE OF EXAM: 07/21/2024 12:04 PM COMPARISON: 07/19/2024 CLINICAL INDICATION: Male, 79 years old with history of hypoxia, TECHNIQUE: XR chest 2V view(s) obtained. FINDINGS: The heart size is normal. The pulmonary vasculature is prominent but significantly improved from comparison. There is significant diminished infiltrate in the right upper lobe. Residual remains. Some increasing opacities at the right lower lobe. Atelectasis and pneumonia are within the differential. There is p oor visualization of the left diaphragm. A small left pleural effusion may be present.. IMPRESSION: 1. Clinical correlation recommended for congestive failure. 2. Atelectasis versus pneumonia versus atypical pulmonary edema right lower lobe. 3. Improving right upper lobe infiltrate. [facility], , 07/21/2024 12:17 PM
--- NOTE | 2024-07-21 13:38 | P.PN ---
Subjective Progress Note Date: 07/21/24 79-year-old patient with Parkinson's disease, HTN, polymyalgia rheumatica, BPH, and bladder cancer presenting with altered mental status, fevers, and dysuria. Ultimately found to have E. coli urinary tract infection with metabolic encephalopathy sepsis type II non-STEMI and pneumonia. Patient seen and examined at bedside. No complaints currently. Denies any chest pain, shortness of breath, nausea, vomiting. Current oxygen at home. Currently requiring 4 L nasal cannula at 95% Vital signs reviewed General: Nontoxic, no distress, appears at stated age Cardiovascular: S1S2 reg, no murmur Lungs: Crackles bilateral, no rhonchi, no rales, no accessory muscle use Abdominal: Soft, nontender to palpation, no guarding Ext: No gross muscle atrophy, no edema b/l lower extremities, no contractures Neuro: CN II-XI grossly intact, no focal neuro deficits Psych: Alert, oriented, appropriate affect Assessment/Plan: Acute exacerbation of systolic congestive heart failure to 45% Acute metabolic encephalopathy, at baseline Parkinson's disease with dementia E. coli UTI Acute hypoxic respiratory failure Community-acquired pneumonia Sepsis secondary to above, resolved Type II NSTEMI Hypotension, resolved NOY, resolved -Continue ceftriaxone 2 g IV every 24 hours denseness thorax -Repeat chest x-ray with fluid overload. Start Lasix 40 mg IV twice daily -DuoNebs 4 times daily, 4 times daily as needed, continue to wean oxygen -Discontinue Montgomery catheter once patient is more ambulatory, continue Flomax 0.4 daily -Continue Sinemet 25-100 3 times daily, Aricept 10 -continue aspirin 81 mg, atorvastatin 40, metoprolol 25 mg daily, losartan 25 daily, spironolactone 25 daily - Cardiology: may be discharge -Nephrology: signed off Chronic: Depression/anxiety Neuropathy Imaging: CBC showed white blood cell count of 16.3 increased from 12.2 yesterday, BMP un remarkable, magnesium 1.8 Data Review: Chest x-ray ordered reviewed demonstrating increasing vascular prominence and atelectasis versus pneumonia in the right lower lobe with improving right upper lobe infiltrate. DVT prophylaxis: Heparin Anticipated discharge date: pending insurance auth Anticipated discharge place: [facility] This dictation was prepared using [employer] voice recognition software. Though every attempt is made to correct errors during dictation some may still exist. Objective - Vital Signs Vital signs: Vital Signs Temp 97.7 F 07/21/24 12:18 Pulse 70 07/21/24 12:57 Resp 20 07/21/24 12:18 BP 156/70 07/21/24 12:18 Pulse Ox 95 07/21/24 12:18 FiO2 Intake & Output 07/20/24 07/21/24 07/21/24 18:59 06:59 18:59 Intake Total 240 Output Total 1400 600 600 Balance -1400 -600 -360 Weight 67 kg 69.853 kg Intake: Oral 240 Output: Urine 1400 600 600 Other: Voiding Method Indwelling Catheter Indwelling Catheter Indwelling Catheter # Bowel Movements 1 1 - Labs CBC & Chem 7: 07/21/24 07:08 07/21/24 07:08 Labs: Abnormal Lab Results - Last 24 Hours (Table) 07/20/24 07/21/24 07/21/24 Range/Units 21:13 07:08 07:08 WBC 16.3 H (3.8-10.6) k/uL Neutrophils # 12.7 H (1.3-7.7) k/uL Sodium 135 L (137-145) mmol/L POC Glucose (mg/dL) 113 H (70-110) mg/dL
[2024-07-21] MEDS: HYDROcodone/APAP 10-325MG 1 EACH TAB PO PRN (15:02)
[2024-07-21] MEDS: FUROSEMIDE 10 MG/ML 4 ML VIAL IV SCH (15:02)
[2024-07-21 16:19] LABS: Glucose,Whole Blood 136 mg/dL (70-110)
[2024-07-21 20:55] LABS: Glucose,Whole Blood 104 mg/dL (70-110)
[2024-07-22 05:52] LABS: Glucose,Whole Blood 96 mg/dL (70-110)
[2024-07-22 07:17] LABS: HCT 39.4 % (39.0-53.0); HGB 13.1 gm/dL (13.0-17.5); MCHC 33.3 g/dL (31.0-37.0); Mean Platelet Volume 9.3; Platelet Count 228 k/uL (150-450); RBC 4.24 m/uL (4.30-5.90); RDW 14.5 % (11.5-15.5); WBC 16.4 k/uL (3.8-10.6)
[2024-07-22 07:34] LABS: African American GFR (CKD) >90 (>60 ml/min/1.73 sqM); Anion Gap 3 mmol/L; Blood Urea Nitrogen 15 mg/dL (9-20); Calcium 8.3 mg/dL (8.4-10.2); Carbon Dioxide 33 mmol/L (22-30); Chloride 97 mmol/L (98-107); Glucose 92 mg/dL (74-99); Non-African American GFR(CKD) 80 (>60 ml/min/1.73 sqM); Potassium 3.4 mmol/L (3.5-5.1); Sodium 133 mmol/L (137-145)
[2024-07-22 11:31] LABS: Glucose,Whole Blood 102 mg/dL (70-110)
--- NOTE | 2024-07-22 12:22 | P.PN ---
Subjective Progress Note Date: 07/22/24 Pt appetite improved. O2 requirement is 3L NC. was started on IV lasix yesterday for VO. Gen: In NAD, non-toxic HEENT: normocephalic, atraumatic, hearing acuity is intant, mucous membranes moist CVS: perfusing all extremities well, no pitting edema, Respiratory: symmetric chest expansion, no accessory muscle use, GI: soft, NTTP, ND, : no suprapubic tenderness, no CVA tenderness MSK/Derm: no rashes, cyanosis Neuro: CN II-XII intact, no motor weakness, Psych: cooperative, euthymic mood, judgment and insight is intact Hospital course: Patient is a-year-old male with a past medical history of Parkinson's disease, hypertension, polymyalgia rheumatica, BPH, and bladder cancer status postchemo therapy treatments. Presented to the emergency department with a chief complaint of altered mental status, fevers, and reports of dysuria. Vital signs upon arrival show blood pressure 108/56, heart rate 110, respiratory rate 18, temp 98.2 F, and SpO2 of 92% on 2 L. EKG was completed showing sinus tachycardia at 102 bpm with a right bundle branch block and T wave inversion in inferior leads III and aVF. CT brain negative for acute process. Chest x-ray negative for acute cardiopulmonary process. Labs completed and reviewed. CBC showing leukocytosis with WBC count of 14.6. Coagulation profile showing a low PTT of 21.4 and an elevated D-dimer of 4.35. BMP showing acute kidney injury with BUN of 48, creatinine 2.34, and GFR of 26 with baseline creatinine of 0.8. Blood glucose 79. Magnesium 1.8. Liver profile showing slightly elevated alkaline phosphatase of 131 otherwise normal findings. Ammonia was negative less than 9. Troponin was elevated at 0.047. proBNP 3020. Lipase was low at 21. Albumin also low at 2.6. Urinalysis was positive for protein, ketones, blood, leukocyte esterase, 12 RBCs and 81 WBCs. Urine drug screen is positive for opiates and otherwise negative. Serum alcohol level was less than 10. Bilateral lower extremity Dopplers completed secondary to elevated D-dimer and were negative for DVT. V/Q scan was nondiagnostic showing a low or intermediate probability for PE. Patient was started on heparin infusion for treatment of elevated troponin. He was admitted under our services with consultation to cardiology. Echocardiogram showed reduced EF 40 to 45%, moderate tricuspid regurgitation. Patient also has acute hypoxic respiratory failure, continued on IV antibiotics. Urine cultures positive for pansensitive E. coli. Mental status close to baseline. Renal function normalized. Assessment and Plan: Active: Acute Systolic Heart Failure Exacerbation, EF 45% Acute metabolic encephalopathy, at baseline Parkinson's disease with dementia E. coli UTI Acute hypoxic respiratory failure Community-acquired pneumonia Sepsis secondary to above, resolved Type II NSTEMI Systolic cardiomyopathy, unclear if ischemic versus nonischemic Hypotension, resolved NOY, resolved -Completed ceftriaxone, azithromycin -Lasix 40mg IV q12h, monitor I/Os -DuoNebs 4 times daily, 4 times daily as needed, continue to wean oxygen -Discontinue Montgomery catheter once patient is more ambulatory, continue Flomax 0.4 daily -Continue Sinemet 25-100 3 times daily, Aricept 10 -Cardiology note reviewed, continue aspirin 81 mg, atorvastatin 40, metoprolol 25 mg daily, losartan 25 daily, spironolactone 25 daily, may be discharge, they signed off -Nephrology note reviewed, signed off Protein calorie malnutrition, moderate -Dietitian consult, pending Chronic: Depression/anxiety Neuropathy DVT ppx: Subcu heparin Code status: Full code Anticipated discharge place: Subacute rehab, insurance authorization is pending Anticipated discharge time: Wean oxygen, pending clinical course Objective - Vital Signs Vital signs: Vital Signs Temp 97.8 F 07/22/24 12:00 Pulse 81 07/22/24 12:00 Resp 18 07/22/24 12:00 BP 117/64 07/22/24 12:00 Pulse Ox 97 07/22/24 12:00 FiO2 Intake & Output 07/21/24 07/22/24 07/22/24 18:59 06:59 18:59 Intake Total 240 Output Total 1999 2099 999 Balance -1759 Intake: Oral 240 Output: Urine 1999 2099 999 Other: Voiding Method Indwelling Catheter Indwelling Catheter Indwelling Catheter # Bowel Movements 1 1 - Labs CBC & Chem 7: 07/22/24 07:00 07/22/24 07:00 Labs: Abnormal Lab Results - Last 24 Hours (Table) 07/21/24 07/22/24 07/22/24 Range/Units 16:14 07:00 07:00 WBC 16.4 H (3.8-10.6) k/uL RBC 4.24 L (4.30-5.90) m/uL Sodium 133 L (137-145) mmol/L Potassium 3.4 L (3.5-5.1) mmol/L Chloride 97 L (98-107) mmol/L Carbon Dioxide 33 H (22-30) mmol/L POC Glucose (mg/dL) 136 H (70-110) mg/dL Calcium 8.3 L (8.4-10.2) mg/dL Microbiology - Last 24 Hours (Table) 07/16/24 09:39 Blood Culture - Final Blood
[2024-07-22 16:09] LABS: Glucose,Whole Blood 144 mg/dL (70-110)
[2024-07-22 20:17] LABS: Glucose,Whole Blood 160 mg/dL (70-110)
[2024-07-23 06:14] LABS: Glucose,Whole Blood 87 mg/dL (70-110)
[2024-07-23 06:46] LABS: African American GFR (CKD) 75 (>60 ml/min/1.73 sqM); Anion Gap 4 mmol/L; Blood Urea Nitrogen 22 mg/dL (9-20); Calcium 8.5 mg/dL (8.4-10.2); Carbon Dioxide 33 mmol/L (22-30); Chloride 96 mmol/L (98-107); Glucose 88 mg/dL (74-99); Magnesium 1.7 mg/dL (1.6-2.3); Non-African American GFR(CKD) 65 (>60 ml/min/1.73 sqM); Potassium 3.5 mmol/L (3.5-5.1); Sodium 133 mmol/L (137-145)
--- NOTE | 2024-07-23 11:47 | P.DS ---
Providers Date of admission: 07/15/24 20:46 Expected date of discharge: 07/23/24 Attending physician: Merlin Leonardo MD Consults: 07/15/24 20:45 Consult Physician Routine Consulting Provider: Vicente Hill Consult Reason/Comments: NOY,CKD Do you want consulting provider notified?: Yes Primary care physician: [facility] Hospital Course: Acute Systolic Heart Failure Exacerbation, EF 45% Acute metabolic encephalopathy, at baseline Parkinson's disease with dementia E. coli UTI Acute hypoxic respiratory failure Community-acquired pneumonia Sepsis secondary to above, resolved Type II NSTEMI Systolic cardiomyopathy, unclear if ischemic versus nonischemic Hypotension, resolved NOY, resolved Protein calorie malnutrition, moderate Depression/anxiety Neuropathy Gen: In NAD, non-toxic HEENT: normocephalic, atraumatic, hearing acuity is intant, mucous membranes moist CVS: perfusing all extremities well, no pitting edema, Respiratory: symmetric chest expansion, no accessory muscle use, GI: soft, NTTP, ND, : no suprapubic tenderness, no CVA tenderness MSK/Derm: no rashes, cyanosis Neuro: CN II-XII intact, no motor weakness, Psych: cooperative, euthymic mood, judgment and insight is intact Hospital course: Patient is a-year-old male with a past medical history of Parkinson's disease, hypertension, polymyalgia rheumatica, BPH, and bladder cancer status postchemotherapy treatments. Presented to the emergency department with a chief complaint of altered mental status, fevers, and reports of dysuria. Vital signs upon arrival show blood pressure 108/56, heart rate 110, respiratory rate 18, temp 98.2 F, and SpO2 of 92% on 2 L. EKG was completed showing sinus tachycardia at 102 bpm with a right bundle branch block and T wave inversion in inferior leads III and aVF. CT brain negative for acute process. Chest x-ray negative for acute cardiopulmonary process. Labs completed and reviewed. CBC showing leukocytosis with WBC count of 14.6. Coagulation profile showing a low PTT of 21.4 and an elevated D-dimer of 4.35. BMP showing acute kidney injury with BUN of 48, creatinine 2.34, and GFR of 26 with baseline creatinine of 0.8. Blood glucose 79. Magnesium 1.8. Liver profile showing slightly elevated alkaline phosphatase of 131 otherwise normal findings. Ammonia was negative less than 9. Troponin was elevated at 0.047. proBNP 3020. Lipase was low at 21. Albumin also low at 2.6. Urinalysis was positive for protein, ketones, blood, leukocyte esterase, 12 RBCs and 81 WBCs. Urine drug screen is positive for opiates and otherwise negative. Serum alcohol level was less than 10. Bilateral lower extremity Dopplers completed secondary to elevated D-dimer and were negative for DVT. V/Q scan was nondiagnostic showing a low or intermediate probability for PE. Patient was started on heparin infusion for treatment of elevated troponin. He was admitted under our services with consultation to cardiology. Echocardiogram showed reduced EF 40 to 45%, moderate tricuspid regurgitation. Patient also has acute hypoxic respiratory failure, continued on IV antibiotics. Urine cultures positive for pansensitive E. coli. Mental s tatus returned to baseline. Renal function normalized. Patient was initiated on guideline directed medical therapy for heart failure with cardiology. Also noted to have some oxygen requirement and therefore started on Lasix which did improve his oxygen requirement and was prescribed this on discharge. Patient was tolerating some nutrition supplements as well as part of his meals upon discharge. He should follow-up with his primary care physician as well as cardiology. He was discharged to [facility] for subacute rehab. I spent 45 minutes coordinating this discharge Patient Condition at Discharge: Stable Plan - Discharge Summary Discharge Rx Participant: No New Discharge Prescriptions: New Aspirin 81 mg PO DAILY tab Furosemide [Lasix] 20 mg PO DAILY #30 tab Gabapentin [Neurontin] 200 mg PO BID #6 cap Metoprolol Succinate (ER) [Toprol XL] 25 mg PO DAILY tab Spironolactone [Aldactone] 25 mg PO DAILY tab Losartan [Cozaar] 25 mg PO DAILY tab Atorvastatin [Lipitor] 40 mg PO HS tab Continue Vit C/E/Zn/Coppr/Lutein/Zeaxan [Preservision Areds 2 Softgel] 1 cap PO DAILY DULoxetine HCL [Cymbalta] 30 mg PO TID Latanoprost/Pf [Latanoprost 0.005% Eye Drop] 1 drop BOTH EYES HS Tamsulosin HCl [Flomax] 0.4 mg PO DAILY Donepezil [Aricept] 10 mg PO HS Lactose-Reduced Food [Ensure Plus] 1 can PO BID Brimonidine Tartrate [Alphagan P 0.2% Ophth Soln] 1 drop BOTH EYES BID Artificial Tears-Hypromellose [Artificial Tear Drops] 1 drop BOTH EYES QID PRN PRN Reason: Dry Eye(S) Carbidopa-Levodopa 25-100 mg [Sinemet 25-100 mg] 1 tab PO TID Cholecalciferol (Vitamin D3) [Vitamin D3 (50 Mcg = 2000 Iu)] 50 mcg PO BID HYDROcodone/APAP 10-325MG [Athens 10-325] 1 tab PO Q8H #9 tab Discontinued Celecoxib [CeleBREX] 200 mg PO HS Gabapentin [Neurontin] 800 mg PO TID dilTIAZem HCL 120 mg PO BID Discharge Medication List DULoxetine HCL [Cymbalta] 30 mg PO TID 12/13/18 [History] Vit C/E/Zn/Coppr/Lutein/Zeaxan [Preservision Areds 2 Softgel] 1 cap PO DAILY 12/13/18 [History] Latanoprost/Pf [Latanoprost 0.005% Eye Drop] 1 drop BOTH EYES HS 05/14/20 [History] Tamsulosin HCl [Flomax] 0.4 mg PO DAILY 05/10/22 [History] Brimonidine Tartrate [Alphagan P 0.2% Ophth Soln] 1 drop BOTH EYES BID 06/16/22 [History] Artificial Tears-Hypromellose [Artificial Tear Drops] 1 drop BOTH EYES QID PRN 07/15/24 [History] Carbidopa-Levodopa 25-100 mg [Sinemet 25-100 mg] 1 tab PO TID 07/15/24 [History] Cholecalciferol (Vitamin D3) [Vitamin D3 (50 Mcg = 2000 Iu)] 50 mcg PO BID 07/15/24 [History] Donepezil [Aricept] 10 mg PO HS 07/15/24 [History] Lactose-Reduced Food [Ensure Plus] 1 can PO BID 07/15/24 [History] Aspirin 81 mg PO DAILY tab 07/23/24 [Rx] Atorvastatin [Lipitor] 40 mg PO HS tab 07/23/24 [Rx] Furosemide [Lasix] 20 mg PO DAILY #30 tab 07/23/24 [Rx] Gabapentin [Neurontin] 200 mg PO BID #6 cap 07/23/24 [Rx] HYDROcodone/APAP 10-325MG [Athens 10-325] 1 tab PO Q8H #9 tab 07/23/24 [Rx] Losartan [Cozaar] 25 mg PO DAILY tab 07/23/24 [Rx] Metoprolol Succinate (ER) [Toprol XL] 25 mg PO DAILY tab 07/23/24 [Rx] Spironolactone [Aldactone] 25 mg PO DAILY tab 07/23/24 [Rx] Follow up Appointment(s)/Referral(s): Silvano Nathan MD [Medical Doctor] - 1 Week [facility] [Primary Care Provider] - 1-2 days Discharge Disposition: TRANSFER TO SNF/ECF
[2024-07-23 11:49] LABS: Glucose,Whole Blood 91 mg/dL (70-110)
[2024-07-23 11:50] VITALS: BP 114/54; PULSE 75; RESP 20; TEMP 98.1
== END 2024-07-23 14:24 | DRG 871 ==
LOC: EC 15:44 → 3SCARD 20:46
PROVIDERS: ADMIT Internal Medicine; ATTEND Internal Medicine
DX: A41.51 Sepsis due to Escherichia coli [E. coli] (principal); G93.41 Metabolic encephalopathy; N17.0 Acute kidney failure with tubular necrosis; I21.A1 Myocardial infarction type 2; I50.23 Acute on chronic systolic (congestive) heart failure; J18.9 Pneumonia, unspecified organism; J96.01 Acute respiratory failure with hypoxia; F05 Delirium due to known physiological condition; N30.00 Acute cystitis without hematuria; E44.0 Moderate protein-calorie malnutrition; E87.20 Acidosis, unspecified; F02.82 Dementia in other diseases classified elsewhere, unspecified severity, with psychotic disturbance; F02.83 Dementia in other diseases classified elsewhere, unspecified severity, with mood disturbance; F02.84 Dementia in other diseases classified elsewhere, unspecified severity, with anxiety; I42.8 Other cardiomyopathies; G20.A1 Parkinson's disease without dyskinesia, without mention of fluctuations; I11.0 Hypertensive heart disease with heart failure; M35.3 Polymyalgia rheumatica; M45.9 Ankylosing spondylitis of unspecified sites in spine; E86.0 Dehydration; F17.200 Nicotine dependence, unspecified, uncomplicated; F32.A Depression, unspecified; F43.10 Post-traumatic stress disorder, unspecified; G62.9 Polyneuropathy, unspecified; I08.1 Rheumatic disorders of both mitral and tricuspid valves; I45.10 Unspecified right bundle-branch block; M41.9 Scoliosis, unspecified; M79.7 Fibromyalgia; N40.0 Benign prostatic hyperplasia without lower urinary tract symptoms; Z65.5 Exposure to disaster, war and other hostilities; Z85.51 Personal history of malignant neoplasm of bladder; Z92.21 Personal history of antineoplastic chemotherapy; Z87.442 Personal history of urinary calculi; Z79.82 Long term (current) use of aspirin; Z79.899 Other long term (current) drug therapy
CPT/HCPCS: 36415; 70450; 71045; 71046; 76770; 78580; 80048; 80053; 80306; 80320; 81001; 82140; 83036; 83690; 83735; 83880; 84100; 84484; 85025; 85027; 85379; 85610; 85730; 87040; 87077; 87086; 87186; 87636; 93005; 93306; 93970; 94640; 94760; 96361; 96365; 96366; 96367; 96368; 96375; 96376; 99291

== ENCOUNTER 2024-07-31 16:16 | Inpatient (IN) | payer OTHER, MEDICARE ==
--- NOTE | 2024-07-31 16:58 | ED ---
GI Bleed HPI - General Chief complaint: GI Bleed Stated complaint: bloody stool Time Seen by Provider: 07/31/24 16:20 Source: EMS Mode of arrival: EMS - History of Present Illness Initial comments: 79-year-old male with past medical history of heart failure with reduced ejection fraction, Parkinson's with dementia, chronic indwelling [place] who was recently hospitalized for UTI presents to the emergency department with dark stools. is at bedside and helps provide the history. States that the patient had 2 episodes of bright red blood per rectum today. Just prior to the patient being transferred to the hospital he had a brief full of bright red blood. She also reports that he was complaining of some abdominal cramping. Patient takes a baby aspirin but no other anticoagulation. No report of any fevers. Patient denies history of ulcers. No black stools. Patient denies any fevers. No other alleviating, precipitating modifying factors - Related Data Home Medications Medication Instructions Recorded Confirmed DULoxetine HCL [Cymbalta] 30 mg PO TID 12/13/18 07/31/24 Vit C/E/Zn/Coppr/Lutein/Zeaxan 1 cap PO DAILY 12/13/18 07/31/24 [Preservision Areds 2 Softgel] Latanoprost/Pf [Latanoprost 0.005% 1 drop BOTH EYES HS 05/14/20 07/31/24 Eye Drop] Tamsulosin HCl [Flomax] 0.4 mg PO DAILY 05/10/22 07/31/24 Brimonidine Tartrate [Alphagan P 1 drop BOTH EYES BID 06/16/22 07/31/24 0.2% Ophth Soln] Artificial Tears-Hypromellose 1 drop BOTH EYES QID PRN 07/15/24 07/31/24 [Artificial Tear Drops] Carbidopa-Levodopa 25-100 mg 1 tab PO TID 07/15/24 07/31/24 [Sinemet 25-100 mg] Cholecalciferol (Vitamin D3) 50 mcg PO BID 07/15/24 07/31/24 [Vitamin D3 (50 Mcg = 2000 Iu)] Donepezil [Aricept] 10 mg PO DAILY 07/15/24 07/31/24 Ascorbic Acid [Vitamin C] 500 mg PO DAILY 07/31/24 07/31/24 Cyanocobalamin [Vitamin B-12] 500 mcg PO DAILY 07/31/24 07/31/24 Mirtazapine 7.5 mg PO HS 07/31/24 07/31/24 Zinc Gluconate [Zinc] 50 mg PO DAILY 07/31/24 07/31/24 Previous Rx's Medication Instructions Recorded Aspirin 81 mg PO DAILY tab 07/23/24 Atorvastatin [Lipitor] 40 mg PO HS tab 07/23/24 Furosemide [Lasix] 20 mg PO DAILY #30 tab 07/23/24 Gabapentin [Neurontin] 200 mg PO BID #6 cap 07/23/24 Losartan [Cozaar] 25 mg PO DAILY tab 07/23/24 Metoprolol Succinate (ER) [Toprol 25 mg PO DAILY tab 07/23/24 XL] Spironolactone [Aldactone] 25 mg PO DAILY tab 07/23/24 Cefdinir [Omnicef] 300 mg PO BID 6 Days #12 capsule 08/07/24 metroNIDAZOLE [Flagyl] 500 mg PO TID 6 Days #18 tab 08/07/24 oxyCODONE-APAP 7.5-325MG [Percocet 1 tab PO Q4H PRN #15 tab 08/07/24 7.5-325 mg] Allergies Allergy/AdvReac Type Severity Reaction Status Date / Time nicotine [From Nicoderm CQ] AdvReac cardiac Verified 07/31/24 16:46 issues nicotine patch AdvReac cardiac Uncoded 09/14/23 14:02 issues Review of Systems ROS Statement: Those systems with pertinent positive or pertinent negative responses have been documented in the HPI. ROS Other: All systems not noted in ROS Statement are negative. 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 bladder cancer dx. in November 2021-chemo History of Any Multi-Drug Resistant Organisms: None Reported Past Surgical History: Hernia Repair, Tonsillectomy Additional Past Surgical History / Comment(s): kimmie cataracts, two bone marrow biopsies, kimmie blepharoplasty, oral surgery for dental extractions (that caused damage to lower palate), rt inguinal hernia bladder tumor removed Past Anesthesia/Blood Transfusion Reactions: No Reported Reaction Additional Past Anesthesia/Blood Transfusion Reaction / Comment(s): can not lay prone or supine due to DISH Past Psychological History: Anxiety, Depression, PTSD Smoking Status: Current every day smoker - Past Family History Father History Unknown: Yes Additional Family Medical History / Comment(s): did not know father Mother Family Medical History: Cancer Additional Family Medical History / Comment(s): breast Brother(s) Family Medical History: Cancer Additional Family Medical History / Comment(s): prostate- General Exam General appearance: alert, in no apparent distress Head exam: Present: atraumatic, normocephalic, normal inspection Eye exam: Present: normal appearance, PERRL, EOMI. Absent: scleral icterus, conjunctival injection, periorbital swelling ENT exam: Present: normal exam, mucous membranes moist Neck exam: Present: normal inspection. Absent: tenderness, meningismus, lymphadenopathy Respiratory exam: Present: normal lung sounds bilaterally. Absent: respiratory distress, wheezes, rales, rhonchi, stridor Cardiovascular Exam: Present: regular rate, normal rhythm, normal heart sounds. Absent: systolic murmur, diastolic murmur, rubs, gallop, clicks GI/Abdominal exam: Present: soft, normal bowel sounds. Absent: distended, tenderness, guarding, rebound, rigid Rectal exam: Absent: black stool, bloody stool, hemorrhoids, mass Extremities exam: Present: normal inspection, full ROM, normal capillary refill. Absent: tenderness, pedal edema, joint swelling, calf tenderness Back exam: Present: normal inspection Neurological exam: Present: alert, oriented X3, CN II-XII intact Psychiatric exam: Present: normal affect, normal mood Skin exam: Present: warm, dry, intact, normal color. Absent: rash Course Vital Signs 07/31/24 07/31/24 08/01/24 16:18 21:01 00:00 Temperature 98.6 F Pulse Rate 84 76 81 Respiratory 20 18 18 Rate Blood Pressure 104/61 102/62 105/60 O2 Sat by Pulse 95 97 97 Oximetry 08/01/24 08/01/24 08/01/24 04:38 07:45 12:33 Temperature 97.5 F L Pulse Rate 76 87 84 Respiratory 12 18 16 Rate Blood Pressure 105/62 125/74 112/62 O2 Sat by Pulse 95 94 L 94 L Oximetry 08/01/24 08/01/24 08/01/24 18:12 19:12 22:00 Temperature Pulse Rate 84 89 92 Respiratory 16 17 18 Rate Blood Pressure 119/67 99/57 120/56 O2 Sat by Pulse 94 L 90 L Oximetry 08/02/24 08/02/24 03:03 03:56 Temperature 98.4 F Pulse Rate 86 Respiratory 16 Rate Blood Pressure 124/54 O2 Sat by Pulse 92 L Oximetry Medical Decision Making - Medical Decision Making Was pt. sent in by a medical professional or institution (, PA, COMPUTER TECHNOLOGY TEACHER, urgent care, hospital, or senior living...) When possible be specific @ -[facility] [place] Did you speak to anyone other than the patient for history (EMS, parent, family, police, friend...)? What history was obtained from this source @ -Spoke with and EMS Did you review nursing and triage notes (agree or disagree)? Why? @ -I reviewed and agree with nursing and triage notes Were old charts reviewed (outside hosp., previous admission, EMS record, old EKG, old radiological studies, urgent care reports/EKG's, senior living records)? Report findings @ -I reviewed ED visit from July 15 where patient was hospitalized with pneumonia Differential Diagnosis (chest pain, altered mental status, abdominal pain women, abdominal pain men, vaginal bleeding, weakness, fever, dyspnea, syncope, headache, dizziness, GI bleed, back pain, seizure, CVA, palpatations, mental health, musculoskeletal)? @ -Differential GI Bleed: Esophageal varices, aortoenteric fistula, Siomara-Brown, gastritis, peptic ulcer disease, diverticulosis, inflammatory bowel disease, hemorrhoids, fissure, colitis, malignancy, Meckel's diverticulum, this is not meant to be an all-inclusive list. EKG interpreted by me (3pts min.). @ -Not done X-rays interpreted by me (1pt min.). @ -None done CT interpreted by me (1pt min.). @ -None done U/S interpreted by me (1pt. min.). @ -None done What testing was considered but not performed or refused? (CT, X-rays, U/S, labs)? Why? @ -CT abdomen considered however patient had no abdominal pain What meds were considered but not given or refused? Why? @ -None Did you discuss the management of the patient with other professionals (prof morales i.e. , PA, COMPUTER TECHNOLOGY TEACHER, lab, RT, psych nurse, social secretary, ocular pathologist, teacher, immigration services officer, casey saw operator)? Give summary @ -Spoke with Dr. Mohr for admission Was smoking cessation discussed for >3mins.? @ -No Was critical care preformed (if so, how long)? @ -No Were there social determinants of health that impacted care today? How? (Homelessness, low income, unemployed, alcoholism, drug addiction, transportation, low edu. Level, literacy, decrease access to med. care, penitentiary, rehab)? @ -No Was there de-escalation of care discussed even if they declined (Discuss DNR or withdrawal of care, Hospice)? DNR status @ -No What co-morbidities impacted this encounter? (DM, HTN, Smoking, COPD, CAD, Cancer, CVA, ARF, Chemo, Hep., AIDS, mental health diagnosis, sleep apnea, morbid obesity)? @ -Hypertension, cancer Was patient admitted / discharged? Hospital course, mention meds given and route, prescriptions, significant lab abnormalities, going to OR and other pertinent info. @ -Upon arrival patient seen and evaluated in room 29. Thorough history and physical exam was performed. IV access was established. Laboratory studies are conducted. Rectal exam was performed and demonstrates brown stool. It is occult positive. Patient has no abdominal pain. Recommended overnight obs ervation to see if the patient has any further bloody bowel movements which the patient was agreeable. Spoke with Dr. Figueroa for the admission Undiagnosed new problem with uncertain prognosis? @ -No Drug Therapy requiring intensive monitoring for toxicity (Heparin, Nitro, Insulin, Cardizem)? @ -No Were any procedures done? @ -No Diagnosis/symptom? @ -Acute hematochezia Acute, or Chronic, or Acute on Chronic? @ -Acute Uncomplicated (without systemic symptoms) or Complicated (systemic symptoms)? @ -Complicated Side effects of treatment? @ -No Exacerbation, Progression, or Severe Exacerbation? @ -No Poses a threat to life or bodily function? How? (Chest pain, [place], [place], pneumonia, PE, COPD, DKA, ARF, appy, cholecystitis, CVA, Diverticulitis, Homicidal, Suicidal, threat to staff... and all critical care pts) @ -No - Lab Data Result diagrams: 08/06/24 05:02 08/06/24 05:02 Lab Results 07/31/24 07/31/24 07/31/24 Range/Units 17:32 17:32 17:32 WBC 12.4 H (3.8-10.6) k/uL RBC 4.91 (4.30-5.90) m/uL Hgb 15.3 (13.0-17.5) gm/dL Hct 46.1 (39.0-53.0) % MCV 93.9 (80.0-100.0) fL MCH 31.1 (25.0-35.0) pg MCHC 33.1 (31.0-37.0) g/dL RDW 14.3 (11.5-15.5) % Plt Count 526 H D (150-450) k/uL MPV 7.2 Neutrophils % 76 % Lymphocytes % 15 % Monocytes % 7 % Eosinophils % 1 % Basophils % 0 % Neutrophils # 9.4 H (1.3-7.7) k/uL Lymphocytes # 1.9 (1.0-4.8) k/uL Monocytes # 0.9 (0-1.0) k/uL Eosinophils # 0.1 (0-0.7) k/uL Basophils # 0.0 (0-0.2) k/uL PT 11.1 (10.0-12.5) sec INR 1.0 (<1.2) APTT 23.1 (22.0-30.0) sec Sodium 134 L (137-145) mmol/L Potassium 4.4 (3.5-5.1) mmol/L Chloride 100 (98-107) mmol/L Carbon Dioxide 20 L (22-30) mmol/L Anion Gap 14 mmol/L BUN 36 H (9-20) mg/dL Creatinine 1.26 H (0.66-1.25) mg/dL Est GFR (CKD-EPI)AfAm 63 (>60 ml/min/1.73 sqM) Est GFR (CKD-EPI)NonAf 55 (>60 ml/min/1.73 sqM) Glucose 88 (74-99) mg/dL Plasma Lactic Acid Tobi (0.7-2.0) mmol/L Calcium 9.4 (8.4-10.2) mg/dL Magnesium 2.1 (1.6-2.3) mg/dL Total Bilirubin 0.4 (0.2-1.3) mg/dL AST 21 (17-59) U/L ALT 10 (4-49) U/L Alkaline Phosphatase 80 (38-126) U/L Troponin I (0.000-0.034) ng/mL Total Protein 6.5 (6.3-8.2) g/dL Albumin 3.2 L (3.5-5.0) g/dL Stool Occult Blood (Negative) Blood Type Blood Type Confirm Blood Type Recheck Bld Type Recheck Status Antibody Screen Spec Expiration Date 07/31/24 07/31/24 07/31/24 Range/Units 17:32 17:32 17:32 WBC (3.8-10.6) k/uL RBC (4.30-5.90) m/uL Hgb (13.0-17.5) gm/dL Hct (39.0-53.0) % MCV (80.0-100.0) fL MCH (25.0-35.0) pg MCHC (31.0-37.0) g/dL RDW (11.5-15.5) % Plt Count (150-450) k/uL MPV Neutrophils % % Lymphocytes % % Monocytes % % Eosinophils % % Basophils % % Neutrophils # (1.3-7.7) k/uL Lymphocytes # (1.0-4.8) k/uL Monocytes # (0-1.0) k/uL Eosinophils # (0-0.7) k/uL Basophils # (0-0.2) k/uL PT (10.0-12.5) sec INR (<1.2) APTT (22.0-30.0) sec Sodium (137-145) mmol/L Potassium (3.5-5.1) mmol/L Chloride (98-107) mmol/L Carbon Dioxide (22-30) mmol/L Anion Gap mmol/L BUN (9-20) mg/dL Creatinine (0.66-1.25) mg/dL Est GFR (CKD-EPI)AfAm (>60 ml/min/1.73 sqM) Est GFR (CKD-EPI)NonAf (>60 ml/min/1.73 sqM) Glucose (74-99) mg/dL Plasma Lactic Acid Tobi 1.0 (0.7-2.0) mmol/L Calcium (8.4-10.2) mg/dL Magnesium (1.6-2.3) mg/dL Total Bilirubin (0.2-1.3) mg/dL AST (17-59) U/L ALT (4-49) U/L Alkaline Phosphatase (38-126) U/L Troponin I <0.012 (0.000-0.034) ng/mL Total Protein (6.3-8.2) g/dL Albumin (3.5-5.0) g/dL Stool Occult Blood Positive (Negative) Blood Type Blood Type Confirm Blood Type Recheck Bld Type Recheck Status Antibody Screen Spec Expiration Date 07/31/24 07/31/24 Range/Units 17:35 18:15 WBC (3.8-10.6) k/uL RBC (4.30-5.90) m/uL Hgb (13.0-17.5) gm/dL Hct (39.0-53.0) % MCV (80.0-100.0) fL MCH (25.0-35.0) pg MCHC (31.0-37.0) g/dL RDW (11.5-15.5) % Plt Count (150-450) k/uL MPV Neutrophils % % Lymphocytes % % Monocytes % % Eosinophils % % Basophils % % Neutrophils # (1.3-7.7) k/uL Lymphocytes # (1.0-4.8) k/uL Monocytes # (0-1.0) k/uL Eosinophils # (0-0.7) k/uL Basophils # (0-0.2) k/uL PT (10.0-12.5) sec INR (<1.2) APTT (22.0-30.0) sec Sodium (137-145) mmol/L Potassium (3.5-5.1) mmol/L Chloride (98-107) mmol/L Carbon Dioxide (22-30) mmol/L Anion Gap mmol/L BUN (9-20) mg/dL Creatinine (0.66-1.25) mg/dL Est GFR (CKD-EPI)AfAm (>60 ml/min/1.73 sqM) Est GFR (CKD-EPI)NonAf (>60 ml/min/1.73 sqM) Glucose (74-99) mg/dL Plasma Lactic Acid Tobi (0.7-2.0) mmol/L Calcium (8.4-10.2) mg/dL Magnesium (1.6-2.3) mg/dL Total Bilirubin (0.2-1.3) mg/dL AST (17-59) U/L ALT (4-49) U/L Alkaline Phosphatase (38-126) U/L Troponin I (0.000-0.034) ng/mL Total Protein (6.3-8.2) g/dL Albumin (3.5-5.0) g/dL Stool Occult Blood (Negative) Blood Type O Positive Blood Type Confirm O Positive Blood Type Recheck No Previous Record Bld Type Recheck Status CABO Indicated Antibody Screen NEGATIVE Spec Expiration Date 08/03/20242331 Disposition Clinical Impression: Lower GI bleed Disposition: ADMITTED IP TO THIS [facility] Condition: Stable Is patient prescribed a controlled substance at d/c from ED?: No Time of Disposition: 20:47 Decision to Admit Reason: Admit from EC Decision Date: 07/31/24 Decision Time: 20:47
[2024-07-31 17:47] LABS: Basophils % (A) 0 %; Eosinophils # (A) 0.1 k/uL (0-0.7); Eosinophils % (A) 1 %; HCT 46.1 % (39.0-53.0); HGB 15.3 gm/dL (13.0-17.5); Lymphocytes # (A) 1.9 k/uL (1.0-4.8); Lymphocytes % (A) 15 %; MCH 31.1 pg (25.0-35.0); MCHC 33.1 g/dL (31.0-37.0); MCV 93.9 fL (80.0-100.0); Mean Platelet Volume 7.2; Monocytes # (A) 0.9 k/uL (0-1.0); Monocytes % (A) 7 %; Neutrophils # (A) 9.4 k/uL (1.3-7.7); Neutrophils % (A) 76 %; RBC 4.91 m/uL (4.30-5.90); RDW 14.3 % (11.5-15.5); WBC 12.4 k/uL (3.8-10.6)
[2024-07-31 17:56] LABS: Partial Thromboplastin Time 23.1 sec (22.0-30.0); Prothrombin Time 11.1 sec (10.0-12.5)
[2024-07-31 17:57] LABS: Platelet Count 526 k/uL (150-450)
[2024-07-31] MEDS: oxyCODONE-APAP 7.5-325MG 1 EACH TAB PO STA (18:48)
[2024-07-31 20:47] LABS: ALT 10 U/L (4-49); AST 21 U/L (17-59); African American GFR (CKD) 63 (>60 ml/min/1.73 sqM); Albumin 3.2 g/dL (3.5-5.0); Alkaline Phosphatase 80 U/L (38-126); Anion Gap 14 mmol/L; Blood Urea Nitrogen 36 mg/dL (9-20); Calcium 9.4 mg/dL (8.4-10.2); Carbon Dioxide 20 mmol/L (22-30); Chloride 100 mmol/L (98-107); Glucose 88 mg/dL (74-99); Magnesium 2.1 mg/dL (1.6-2.3); Non-African American GFR(CKD) 55 (>60 ml/min/1.73 sqM); Potassium 4.4 mmol/L (3.5-5.1); Sodium 134 mmol/L (137-145); Total Bilirubin 0.4 mg/dL (0.2-1.3); Total Protein 6.5 g/dL (6.3-8.2)
[2024-07-31] MEDS ORDERED: NALOXONE 0.4 MG/ML 1 ML VIAL IV PRN (20:50)
[2024-07-31] MEDS: CARBIDOPA-LEVODOPA 25-100 MG 1 EACH TAB PO SCH (21:42)
[2024-07-31] MEDS: GABAPENTIN 100 MG CAP PO SCH (21:44)
[2024-07-31] MEDS: MIRTAZAPINE 15 MG TAB PO SCH (21:45)
[2024-07-31] MEDS: LATANOPROST 0.005% OPHTH DROPS 2.5 ML BTL BOTH EYES SCH (21:48)
[2024-07-31] MEDS: BRIMONIDINE TARTRATE 0.2% DROPS 5 ML BTL BOTH EYES SCH (21:48)
[2024-07-31] MEDS: ATORVASTATIN 40 MG TAB PO SCH (21:48)
[2024-07-31] MEDS: CHOLECALCIFEROL 25 MCG (1000 IU) TABLET PO SCH (21:48)
[2024-07-31] MEDS: oxyCODONE-APAP 7.5-325MG 1 EACH TAB PO PRN (22:51)
--- NOTE | 2024-07-31 23:29 | P.HPIM ---
History of Present Illness H&P Date: 07/31/24 Patient is a 79-year-old male with a history of multiple medical conditions such as Parkinson's disease, bladder cancer status post chemotherapy, hypertension, polymyalgia rheumatica and BPH is presenting to the ER from [facility] with concerns for GI bleed. Patient continues to have altered mentation therefore history was obtained from the who was present at bedside. Patient is currently undergoing subacute rehabilitation for his recent hospitalization due to altered mental status, urosepsis, pneumonia, acute systolic heart failure exacerbation and debility. According to the , she received a call from subacute rehab earlier today as patient was experiencing multiple episodes of loose dark-colored stools. At around 3 PM in the afternoon, patient experienced an episode of bloody bowel movement. No previous episodes of GI bleed. Currently he is not on any blood thinners except low-dose aspirin 81 mg p.o. daily. Patient is also having poor diet with poor oral intake. Otherwise, there are no reports of patient experiencing abdominal pain, nausea, vomiting or hematemesis. Last colonoscopy was performed on 05/15/[address] Emanuel with findings sig nificant for multiple polyps status post polypectomy, mild left colon diverticulosis and internal hemorrhoids. Laboratory data: WBC 12.4, hemoglobin 15.3, hematocrit 46.1, platelet count 526, neutrophil count 9.4, PTT 11.1, INR 1.0, APTT 23.1, sodium 134, potassium 4.4, chloride 100, bicarb 20, anion gap 14, BUN 34, creatinine 1.26, EGFR 55, lactic acid 1.0, magnesium 2.1, calcium 9.4, total bili 0.4, AST 21, ALT 10, ALP 80, troponin I less than 0.012, albumin 3.2, Images: No new images Vitals: Tmax 98.6 F, heart rate 84, pulse rate 18, blood pressure 104/61, oxygen saturation 97% 2 L Review of systems: Unable to obtain review of system because of altered mental status Social history: Unable to obtain Family History: Unable to obtain Physical examination: Vital signs reviewed General: non toxic, no distress, appears older than stated age, underweight Derm: no unusual rashes/lesions, warm Head: atraumatic, normocephalic, symmetric Eyes: EOMI, anicteric sclera, pupils equal round reactive to light ENT: Nose and ears atraumatic Neck: No cervical lymphadenopathy, trachea midline, supple Mouth: no lip lesion, mucus membranes moist Cardiovascular: S1S2 reg, no murmur, positive dorsalis pedis pulse bilateral, no edema Lungs: CTA bilateral, no rhonchi, no rales, no accessory muscle use Abdominal: Soft, diffuse tenderness upon palpation, mainly on the left lower quadrant, bowel sounds positive Ext: muscle strength 5 out of 5 in all 4 extremities grossly, no gross muscle atrophy, no contractures, Neuro: CN II-XI grossly intact, no gross focal neuro deficits Psych: AO x 2 Assessment/Plan: Patient is a 79-year-old male with a history of multiple medical conditions such as Parkinson's disease, bladder cancer status post chemotherapy, hypertension, polymyalgia rheumatica and BPH is presenting to the ER from [facility] with concerns for GI bleed. Case was discussed with the Emergency Room provider and decision was made to admit the patient for acute GI bleed. #Acute GI bleed, most likely lower GI , rule out upper GI Patient is hemodynamically stable Hemoglobin 15.3, hematocrit 46.1 BUN is elevated at 36 likely in the setting of upper GI bleed Last colonoscopy on 05/15/2020 showed multiple polyps status post polypectomy, mild left colon diverticulosis and internal hemorrhoids. Order IV fluids at 50 cc/h Order IV Protonix 80 mg once stat Order IV Protonix 40 mg twice daily Hold aspirin 81 mg Consult gastroenterology CBC q 6 hr stool occult is positive #Thrombocytosis likely reactive secondary to underlying acute bleeding Platelet count 526 # acute kidney injury in the setting of poor oral intake Creatinine 1.26 Baseline creatinine 1.0 Monitor BMP monitor urine output Chronic conditions: #Parkinson's disease Resume Sinemet 63163 p.o. 3 times daily, resume donepezil 10 mg p.o. daily #Neuropathy resume Neurontin 200 mg p.o. twice daily #CHF Resume Lipitor 40 mg p.o. at bedtime, metoprolol 25 mg p.o. daily #BPH Resume Flomax 0.4 mg p.o. daily DVT prophylaxis: SCDs GI prophylaxis: IV Protonix 40 mg twice daily F: IV normal saline 50 cc/h E: Replete as needed N: Heart healthy diet, n.p.o. at midnight A: Debility The patient is admitted with an anticipated more than than 2 midnight stay for evaluation of acute GI bleed and altered mental status CODE STATUS: Full code Discussed with: Patient has advanced directive Anticipated discharge place: Pending clinical course Dictation was produced using [employer] dictation software. Please excuse any grammatical, word or spelling errors. 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 bladder cancer dx. in November 2021-chemo History of Any Multi-Drug Resistant Organisms: None Reported Past Surgical History: Hernia Repair, Tonsillectomy Additional Past Surgical History / Comment(s): kimmie cataracts, two bone marrow biopsies, kimmie blepharoplasty, oral surgery for dental extractions (that caused damage to lower palate), rt inguinal hernia bladder tumor removed Past Anesthesia/Blood Transfusion Reactions: No Reported Reaction Additional Past Anesthesia/Blood Transfusion Reaction / Comment(s): can not lay prone or supine due to DISH Past Psychological History: Anxiety, Depression, PTSD Smoking Status: Current every day smoker - Past Family History Father History Unknown: Yes Additional Family Medical History / Comment(s): did not know father Mother Family Medical History: Cancer Additional Family Medical History / Comment(s): breast Brother(s) Family Medical History: Cancer Additional Family Medical History / Comment(s): prostate- Medications and Allergies Home Medications Medication Instructions Recorded Confirmed Type DULoxetine HCL [Cymbalta] 30 mg PO TID 12/13/18 07/31/24 History Vit C/E/Zn/Coppr/Lutein/Zeaxan 1 cap PO DAILY 12/13/18 07/31/24 History [Preservision Areds 2 Softgel] Latanoprost/Pf [Latanoprost 0.005% 1 drop BOTH EYES HS 05/14/20 07/31/24 History Eye Drop] Tamsulosin HCl [Flomax] 0.4 mg PO DAILY 05/10/22 07/31/24 History Brimonidine Tartrate [Alphagan P 1 drop BOTH EYES BID 06/16/22 07/31/24 History 0.2% Ophth Soln] Artificial Tears-Hypromellose 1 drop BOTH EYES QID PRN 07/15/24 07/31/24 History [Artificial Tear Drops] Carbidopa-Levodopa 25-100 mg 1 tab PO TID 07/15/24 07/31/24 History [Sinemet 25-100 mg] Cholecalciferol (Vitamin D3) 50 mcg PO BID 07/15/24 07/31/24 History [Vitamin D3 (50 Mcg = 2000 Iu)] Donepezil [Aricept] 10 mg PO DAILY 07/15/24 07/31/24 History Aspirin 81 mg PO DAILY tab 07/23/24 07/31/24 Rx Atorvastatin [Lipitor] 40 mg PO HS tab 07/23/24 07/31/24 Rx Furosemide [Lasix] 20 mg PO DAILY #30 tab 07/23/24 07/31/24 Rx Gabapentin [Neurontin] 200 mg PO BID #6 cap 07/23/24 07/31/24 Rx Losartan [Cozaar] 25 mg PO DAILY tab 07/23/24 07/31/24 Rx Metoprolol Succinate (ER) [Toprol 25 mg PO DAILY tab 07/23/24 07/31/24 Rx XL] Spironolactone [Aldactone] 25 mg PO DAILY tab 07/23/24 07/31/24 Rx Ascorbic Acid [Vitamin C] 500 mg PO DAILY 07/31/24 07/31/24 History Cyanocobalamin [Vitamin B-12] 500 mcg PO DAILY 07/31/24 07/31/24 History Mirtazapine 7.5 mg PO HS 07/31/24 07/31/24 History Zinc Gluconate [Zinc] 50 mg PO DAILY 07/31/24 07/31/24 History oxyCODONE-APAP 7.5-325MG [Percocet 1 tab PO Q4H PRN 07/31/24 07/31/24 History 7.5-325 mg] Allergies Allergy/AdvReac Type Severity Reaction Status Date / Time [facility] AdvReac cardiac Verified 07/31/24 16:46 issues nicotine patch AdvReac cardiac Uncoded 09/14/23 14:02 issues Physical Exam Vitals: Vital Signs Temp Pulse Resp BP Pulse Ox 07/31/24 21:01 76 18 102/62 97 07/31/24 16:18 98.6 F 84 20 104/61 95 Intake and Output 07/31/24 07/31/24 08/01/24 14:59 22:59 06:59 Other: Weight 68.039 kg Results CBC & Chem 7: 07/31/24 17:32 07/31/24 17:32 Labs: Abnormal Lab Results - Last 24 Hours (Table) 07/31/24 07/31/24 Range/Units 17:32 17:32 WBC 12.4 H (3.8-10.6) k/uL Plt Count 526 H D (150-450) k/uL Neutrophils # 9.4 H (1.3-7.7) k/uL Sodium 134 L (137-145) mmol/L Carbon Dioxide 20 L (22-30) mmol/L BUN 36 H (9-20) mg/dL Creatinine 1.26 H (0.66-1.25) mg/dL Albumin 3.2 L (3.5-5.0) g/dL
[2024-08-01 00:46] LABS: HCT 46.8 % (39.0-53.0); MCH 30.4 pg (25.0-35.0); Mean Platelet Volume 7.7; Platelet Count 528 k/uL (150-450); RBC 4.92 m/uL (4.30-5.90); RDW 14.5 % (11.5-15.5); WBC 11.8 k/uL (3.8-10.6)
[2024-08-01] MEDS: SODIUM CHLORIDE 0.9% 1,000 ML IV SCH (00:51)
[2024-08-01] MEDS: PANTOPRAZOLE 40 MG/10 ML VIAL IVP ONE (00:51)
[2024-08-01 07:59] LABS: Basophils % (A) 0 %; Eosinophils # (A) 0.1 k/uL (0-0.7); Eosinophils % (A) 1 %; HCT 43.6 % (39.0-53.0); HGB 14.1 gm/dL (13.0-17.5); Lymphocytes # (A) 2.6 k/uL (1.0-4.8); Lymphocytes % (A) 22 %; MCH 30.5 pg (25.0-35.0); MCHC 32.3 g/dL (31.0-37.0); MCV 94.4 fL (80.0-100.0); Mean Platelet Volume 8.2; Monocytes % (A) 8 %; Neutrophils # (A) 7.8 k/uL (1.3-7.7); Neutrophils % (A) 67 %; Platelet Count 522 k/uL (150-450); RBC 4.62 m/uL (4.30-5.90); RDW 14.3 % (11.5-15.5); WBC 11.7 k/uL (3.8-10.6)
[2024-08-01 08:10] LABS: African American GFR (CKD) 53 (>60 ml/min/1.73 sqM); Anion Gap 10 mmol/L; Blood Urea Nitrogen 39 mg/dL (9-20); Calcium 9.1 mg/dL (8.4-10.2); Carbon Dioxide 22 mmol/L (22-30); Chloride 102 mmol/L (98-107); Glucose 70 mg/dL (74-99); Non-African American GFR(CKD) 45 (>60 ml/min/1.73 sqM); Potassium 4.5 mmol/L (3.5-5.1); Sodium 134 mmol/L (137-145)
[2024-08-01] MEDS ORDERED: LOSARTAN 25 MG TAB PO SCH (09:00)
[2024-08-01] MEDS ORDERED: SPIRONOLACTONE 25 MG TAB PO SCH (09:00)
[2024-08-01] MEDS ORDERED: FUROSEMIDE 20 MG TAB PO SCH (09:00)
[2024-08-01] MEDS ORDERED: IOPAMIDOL CONTRAST (ORAL USE) VIAL PO PRN (10:03)
[2024-08-01 10:06] LABS: HCT 44.5 % (39.0-53.0); HGB 14.5 gm/dL (13.0-17.5); MCH 30.7 pg (25.0-35.0); MCHC 32.5 g/dL (31.0-37.0); MCV 94.4 fL (80.0-100.0); Mean Platelet Volume 7.6; Platelet Count 522 k/uL (150-450); RBC 4.71 m/uL (4.30-5.90); RDW 14.7 % (11.5-15.5); WBC 10.2 k/uL (3.8-10.6)
[2024-08-01] MEDS: METOPROLOL SUCCINATE (ER) 25 MG TAB.ER.24H PO SCH (10:24)
[2024-08-01] MEDS: TAMSULOSIN 0.4 MG CAP.ER.24H PO SCH (10:24)
[2024-08-01] MEDS: ASCORBIC ACID 500 MG TAB PO SCH (10:24)
[2024-08-01] MEDS: ZINC SULFATE 220 MG CAP PO SCH (10:24)
[2024-08-01] MEDS: CYANOCOBALAMIN 500 MCG TAB PO SCH (10:24)
[2024-08-01] MEDS: DONEPEZIL 10 MG TAB PO SCH (10:24)
[2024-08-01] MEDS: PANTOPRAZOLE 40 MG/10 ML VIAL IVP SCH (10:25)
[2024-08-01] MEDS: VIT A,C & E-LUTEIN-MINERALS 1 EACH TAB PO SCH (10:25)
[2024-08-01] MEDS: DULoxetine HCL 30 MG CAPSULE.DR PO SCH (10:40)
--- NOTE | 2024-08-01 12:37 | CT ---
EXAMINATION TYPE: CT abdomen pelvis w con DATE OF EXAM: 08/01/2024 COMPARISON: CT September 19, 2023 CLINICAL INDICATION: Male, 79 years old with history of Abdominal pain; PHH, Abdominal pain, blood in stool, hx bladder ca TECHNIQUE: Performed without Oral Contrast and with IV Contrast, patient injected with 80 mL of Isovue 300. CT DLP: 762.3 mGycm Automated exposure control for dose reduction was used. FINDINGS: LUNG BASES: Cardiomegaly redemonstrated. There is lipomatous hypertrophy of the intra-arterial septum again seen. Coronary artery calcification redemonstrated. LIVER/GB: No significant abnormality is appreciated. PANCREAS: No significant abnormality is seen. SPLEEN: Stable small thin-walled cyst anterior inferior spleen. ADRENALS: Persistent low dense thickening to both adrenal glands consistent with benign lipid rich hy perplasia. KIDNEYS: Bilateral calcifications centrally in both kidneys left greater than right are redemonstrate d. No hydronephrosis seen bilaterally. Some cortical thinning bilaterally again seen. There are few t iny simple cysts in the right kidney redemonstrated. FREE AIR: No free air is visualized. RETROPERITONEAL ADENOPATHY: None visualized REPRODUCTIVE ORGANS: No significant abnormality is seen URINARY BLADDER: Montgomery catheter decompresses bladder. PELVIC ADENOPATHY: None visualized. OSSEOUS STRUCTURES: Moderate narrowing of both hip joints. Mild height loss superiorly L3 endplate r edemonstrated. Persistent disc space narrowing and endplate sclerosis at the T10-T11 level. BOWEL: Suboptimal evaluation without enteric contrast. Stomach poorly distended and suboptimally fátima luated. No abnormal small or large bowel dilatation. Diverticula in the left and sigmoid colon are pr esent. There is moderate to severe wall thickening in the sigmoid colon. OTHER: Moderate to severe peripheral calcified plaque of the aorta extends into branch vessels IMPRESSION: Prominent diverticulosis of the distal colon. Severe wall thickening in the sigmoid colon could reflect underlying acute colitis/diverticulitis. Correlate clinically. Follow-up colonoscopy a fter treatment is advised to rule out neoplasm at this level due to severe wall thickening. [facility], , 08/01/2024 12:35 PM
[2024-08-01] MEDS: HYDROmorphone 0.5 MG/0.5 ML SYRINGE IVP PRN (13:41)
--- NOTE | 2024-08-01 13:53 | P.CONS ---
History of Present Illness - Reason for Consult Consult date: 08/01/24 Hematochezia Requesting physician: Tracey Oconnor - Chief Complaint Rectal bleeding - History of Present Illness This a pleasant 79-year-old male, who is currently at subacute rehab and was brought into the emergency department for bright red blood per rectum. Patient's son-in-law is at the bedside and provides most of the history. Patient currently laying on his side with eyes closed and not much of a historian. Past medical history includes according to family member patient was recently hospitalized for urinary tract infection, sepsis and then developed pneumonia as well as COVID-19 infection, Parkinson's with dementia, heart failure, hypertension, and bladder cancer s/p surgery. Over the last 2 weeks patient has been declining in overall health status. Has not been eating much. Apparently he has been having some diarrhea sounds like since he was on an tibiotics. Apparently yesterday afternoon he had some bright red blood streaked with his stool and then around 3:00 the patient's was at the rehab center and patient reportedly had a brief full of bright red blood. He was brought into the emergency department for further evaluation. Apparently last night around 10 or 11:00 he had another bowel movement which was loose with only streaks of blood. He is not on any anticoagulation other than low-dose aspirin. No history of GI bleed. He denies any abdominal pain, nausea or vomiting. Last colonoscopy was [address] Emanuel with findings of multiple colon polyps status post polypectomy which biopsies came back as tubular adenoma, le ft-sided diverticulosis and internal hemorrhoids. Patient has not had any bowel movement today no rectal bleeding. Hemoglobin on admission was 15.3 repeat today 14.5 patient was noted to have mild leukocytosis on admission with a WBC of 12.4 with a repeat today of 10.2. Review of Systems REVIEW OF SYSTEMS: CARDIOPULMONARY: No chest pain or shortness of breath. Gastrointestinal: No abdominal pain. No nausea or vomiting. No hematemesis, coffee-ground emesis. Diarrhea with bright red blood.. GENITOURINARY: No dysuria or hematuria. MUSCULOSKELETAL: Reports normal range of motion., Joint pain. Chronic back pain SKIN: No rashes. No jaundice. ENDOCRINE: No chills, fevers. No excessive weight gain or loss. No polydipsia or polyuria. PSYCHIATRIC: Unremarkable. NEUROLOGY: No change in mental status. Denies dizziness, headache. ENT: Vision unremarkable. CONSTITUTIONAL: No recent weight loss. No fever, chills, night sweats. 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 bladder cancer dx. in November 2021-chemo History of Any Multi-Drug Resistant Organisms: None Reported Past Surgical History: Hernia Repair, Tonsillectomy Additional Past Surgical History / Comment(s): kimmie cataracts, two bone marrow biopsies, kimmie blepharoplasty, oral surgery for dental extractions (that caused damage to lower palate), rt inguinal hernia bladder tumor removed Past Anesthesia/Blood Transfusion Reactions: No Reported Reaction Additional Past Anesthesia/Blood Transfusion Reaction / Comm: can not lay prone or supine due to DISH Past Psychological History: Anxiety, Depression, PTSD Smoking Status: Current every day smoker - Past Family History Father History Unknown: Yes Additional Family Medical History / Comment(s): did not know father Mother Family Medical History: Cancer Additional Family Medical History / Comment(s): breast Brother(s) Family Medical History: Cancer Additional Family Medical History / Comment(s): prostate- Medications and Allergies Home Medications Medication Instructions Recorded Confirmed Type DULoxetine HCL [Cymbalta] 30 mg PO TID 12/13/18 07/31/24 History Vit C/E/Zn/Coppr/Lutein/Zeaxan 1 cap PO DAILY 12/13/18 07/31/24 History [Preservision Areds 2 Softgel] Latanoprost/Pf [Latanoprost 0.005% 1 drop BOTH EYES HS 05/14/20 07/31/24 History Eye Drop] Tamsulosin HCl [Flomax] 0.4 mg PO DAILY 05/10/22 07/31/24 History Brimonidine Tartrate [Alphagan P 1 drop BOTH EYES BID 06/16/22 07/31/24 History 0.2% Ophth Soln] Artificial Tears-Hypromellose 1 drop BOTH EYES QID PRN 07/15/24 07/31/24 History [Artificial Tear Drops] Carbidopa-Levodopa 25-100 mg 1 tab PO TID 07/15/24 07/31/24 History [Sinemet 25-100 mg] Cholecalciferol (Vitamin D3) 50 mcg PO BID 07/15/24 07/31/24 History [Vitamin D3 (50 Mcg = 2000 Iu)] Donepezil [Aricept] 10 mg PO DAILY 07/15/24 07/31/24 History Aspirin 81 mg PO DAILY tab 07/23/24 07/31/24 Rx Atorvastatin [Lipitor] 40 mg PO HS tab 07/23/24 07/31/24 Rx Furosemide [Lasix] 20 mg PO DAILY #30 tab 07/23/24 07/31/24 Rx Gabapentin [Neurontin] 200 mg PO BID #6 cap 07/23/24 07/31/24 Rx Losartan [Cozaar] 25 mg PO DAILY tab 07/23/24 07/31/24 Rx Metoprolol Succinate (ER) [Toprol 25 mg PO DAILY tab 07/23/24 07/31/24 Rx XL] Spironolactone [Aldactone] 25 mg PO DAILY tab 07/23/24 07/31/24 Rx Ascorbic Acid [Vitamin C] 500 mg PO DAILY 07/31/24 07/31/24 History Cyanocobalamin [Vitamin B-12] 500 mcg PO DAILY 07/31/24 07/31/24 History Mirtazapine 7.5 mg PO HS 07/31/24 07/31/24 History Zinc Gluconate [Zinc] 50 mg PO DAILY 07/31/24 07/31/24 History oxyCODONE-APAP 7.5-325MG [Percocet 1 tab PO Q4H PRN 07/31/24 07/31/24 History 7.5-325 mg] Allergies Allergy/AdvReac Type Severity Reaction Status Date / Time nicotine [From [facility]] AdvReac cardiac Verified 07/31/24 16:46 issues nicotine patch AdvReac cardiac Uncoded 09/14/23 14:02 issues Physical Exam Vitals: Vital Signs Temp Pulse Resp BP Pulse Ox 08/01/24 07:45 87 18 125/74 94 L 08/01/24 04:38 97.5 F L 76 12 105/62 95 08/01/24 00:00 81 18 105/60 97 07/31/24 21:01 76 18 102/62 97 07/31/24 16:18 98.6 F 84 20 104/61 95 Intake and Output 07/31/24 08/01/24 08/01/24 22:59 06:59 14:59 Output Total 390 Balance -390 Output: Urine 390 Other: Weight 68.039 kg General appearance: The patient is very lethargic but alert. Appears in no acute distress. HET: Head is normocephalic and atraumatic. Conjunctiva pink. Sclera anicteric. Neck: Supple without lymphadenopathy. Trachea midline. Heart: Regular. Lungs: Equal expansion, normal respiratory effort. Abdomen: Soft, nontender, nondistended. Skin: No rashes. No jaundice. Extremities: Normal skin color and turgor. No pedal edema. Neurological: Lethargic, and dozing off. Results CBC & Chem 7: 08/01/24 09:40 08/01/24 06:46 Labs: Abnormal Lab Results - Last 24 Hours (Table) 07/31/24 07/31/24 08/01/24 Range/Units 17:32 17:32 00:13 WBC 12.4 H 11.8 H (3.8-10.6) k/uL Plt Count 526 H D 528 H (150-450) k/uL Neutrophils # 9.4 H (1.3-7.7) k/uL Sodium 134 L (137-145) mmol/L Carbon Dioxide 20 L (22-30) mmol/L BUN 36 H (9-20) mg/dL Creatinine 1.26 H (0.66-1.25) mg/dL Albumin 3.2 L (3.5-5.0) g/dL 08/01/24 Range/Units 06:46 WBC 11.7 H (3.8-10.6) k/uL Plt Count 522 H (150-450) k/uL Neutrophils # 7.8 H (1.3-7.7) k/uL Sodium (137-145) mmol/L Carbon Dioxide (22-30) mmol/L BUN (9-20) mg/dL Creatinine (0.66-1.25) mg/dL Albumin (3.5-5.0) g/dL Assessment and Plan (1) Hematochezia Narrative/Plan: 79-year-old male presenting with diarrhea and hematochezia x 1 day duration. Unclear etiology. Patient denies any abdominal pain associated with the bright red blood per rectum. Does have a history of colonoscopy 4 years ago with multiple colon polyps status post polypectomy, left-sided diverticulosis and internal hemorrhoids. Possibility dealing with a diverticular bleed, other possible etiologies include AVM, internal hemorrhoids or other possible etiologies. As of now rectal bleeding has subsided and so he has loose bowel movements. Need to consider possible C. difficile colitis secondary to recent antibiotic treatment for urinary tract infection. Will obtain C. difficile and stool cultures. Hemoglobin stable. Will continue to monitor CBC and follow along for possible endoscopic evaluation. At this time patient does not wish to undergo colonoscopy and patient likely would not be able to tolerate prep. Current Visit: Yes Status: Acute Code(s): K92.1 - MELENA SNOMED Code(s): 595218184 Plan: 1. Continue symptomatic and supportive care 2. Daily CBC, transfuse for hemoglobin less than 7 3. Patient may have clear liquid diet 4. Stool C. difficile and stool cultures ordered 5. Continue to monitor for GI bleed. Consider possible CT abdomen pelvis if bleeding continues 6. No plans at this time for endoscopic evaluation, will follow along and consider if bleeding continues otherwise would recommend outpatient colonoscopy Thank you for this consultation, we will continue to follow. Dr. Dianna Toro I agree with the dictator's note, documented as a scribe by Melvina Pool.
--- NOTE | 2024-08-01 15:27 | P.PN ---
Subjective Progress Note Date: 08/01/24 Patient is a 79-year-old male with a history of multiple medical conditions such as Parkinson's disease, bladder cancer status post chemotherapy, hypertension, polymyalgia rheumatica and BPH is presenting to the ER from [facility] with concerns for GI bleed. Patient continues to have altered mentation therefore history was obtained from the who was present at bedside. Patient is currently undergoing subacute rehabilitation for his recent hospitalization due to altered mental status, urosepsis, pneumonia, acute systolic heart failure exacerbation and debility. According to the , she received a call from subacute rehab earlier today as patient was experiencing multiple episodes of loose dark-colored stools. At around 3 PM in the afternoon, patient experienced an episode of bloody bowel movement. No previous episodes of GI bleed. Currently he is not on any blood thinners except low-dose aspirin 81 mg p.o. daily. Patient is also having poor diet with poor oral intake. Otherwise, there are no reports of patient experiencing abdominal pain, nausea, vomiting or hematemesis. Last colonoscopy was performed on 05/15/[address] Emanuel with findings significant for multiple polyps status post polypectomy, mild left colon diverticulosis and internal hemorrhoids. 08-01-24 Patient seen and examined at bedside. Unable to provide history. Friend at bedside states he has been lethargic since arrival last evening, but was at his baseline A+O x 4 before that time. Spoke with GI team will not pursue scope today. Left message and will follow-up with [facility] on the [facility] for clarification of patient history. EMS report of 2 episodes per staff of bright red diarrhea. No history of GI bleed. He was noted to be COVID-positive on 07/23/2024. Unable to obtain review of system because of altered mental status Physical examination: Vital signs reviewed General: Lethargic, appears older than stated age, underweight Derm: no unusual rashes/lesions, warm Head: atraumatic, normocephalic, symmetric Eyes: EOMI, anicteric sclera, pupils equal round reactive to light ENT: Nose and ears atraumatic Neck: No cervical lymphadenopathy, trachea midline, supple Mouth: no lip lesion, mucus membranes moist Cardiovascular: S1S2 reg, no murmur, positive dorsalis pedis pulse bilateral, no edema Lungs: CTA bilateral, no rhonchi, no rales, no accessory muscle use Abdominal: Soft, diffuse tenderness upon palpation, mainly on the left lower quadrant, bowel sounds positive Ext: muscle strength 5 out of 5 in all 4 extremities grossly, no gross muscle atrophy, no contractures, Neuro: retracts to pain, unable to fully assess Today's findings: LabsWBC 10.2, hemoglobin 14.5 is stable, platelets 522, Na 134, BUN 39, Creatinine 1.47, glucose 70 CT AP w/ contrast pending Assessment/Plan: Patient is a 79-year-old male with a history of multiple medical conditions such as Parkinson's disease, bladder cancer status post chemotherapy, hypertension, polymyalgia rheumatica and BPH is presenting to the ER from [facility] with concerns for GI bleed. Case was discussed with the Emergency Room provider and decision was made to admit the patient for acute GI bleed. #Acute diverticulitis #Acute GI bleed Patient is hemodynamically stable Initial Hemoglobin 15.3, hematocrit 46.1 BUN is elevated at 36 likely in the setting of upper GI bleed Last colonoscopy on 05/15/2020 showed multiple polyps status post polypectomy, mild left colon diverticulosis and internal hemorrhoids. Order IV fluids at 130 cc/h continue IV Protonix 40 mg twice daily Hold aspirin 81 mg stool occult is positive Gastroenterology following, no plans for scope today C diff and stool cx pending CT AP w/ contrast showed acute colitis/diverticulitis Started on ceftriaxone 2 g IV every 24 hours, Flagyl 500 mg IV every 8 hours #Thrombocytosis likely reactive secondary to underlying acute bleeding Platelet count 526 =>522 #Acute kidney injury in the setting of poor oral intake Creatinine 1.26 =>1.47 Baseline creatinine 1.0 Monitor BMP monitor urine output Continue IV fluids Chronic conditions: #Parkinson's disease Resume Sinemet 14477 p.o. 3 times daily, resume donepezil 10 mg p.o. daily #Neuropathy resume Neurontin 200 mg p.o. twice daily #CHF Resume Lipitor 40 mg p.o. at bedtime, metoprolol 25 mg p.o. daily #BPH Resume Flomax 0.4 mg p.o. daily DVT prophylaxis: SCDs GI prophylaxis: IV Protonix 40 mg twice daily F: IV normal saline 130 cc/h E: Replete as needed N: Clear liquids A: Debility CODE STATUS: Full code Discussed with: Patient has advanced directive Anticipated discharge place: Pending clinical course Dictation was produced using [employer] dictation software. Please excuse any grammatical, word or spelling errors. Due to NOY, and acute colitis/diverticulitis and needing IV antibiotics, patient will be switched to inpatient I have seen and evaluated the patient today. Discussed with the resident and agree with the residents finding and plan as documented in the resident's note. Changes highlighted in blue font. Objective - Vital Signs Vital signs: Vital Signs Temp 97.5 F L 08/01/24 04:38 Pulse 87 08/01/24 07:45 Resp 18 08/01/24 07:45 BP 125/74 08/01/24 07:45 Pulse Ox 94 L 08/01/24 07:45 FiO2 Intake & Output 07/31/24 08/01/24 08/01/24 18:59 06:59 18:59 Output Total 390 Balance -390 Weight 68.039 kg Output: Urine 390 - Labs CBC & Chem 7: 08/01/24 09:40 08/01/24 06:46 Labs: Abnormal Lab Results - Last 24 Hours (Table) 07/31/24 07/31/24 08/01/24 Range/Units 17:32 17:32 00:13 WBC 12.4 H 11.8 H (3.8-10.6) k/uL Plt Count 526 H D 528 H (150-450) k/uL Neutrophils # 9.4 H (1.3-7.7) k/uL Sodium 134 L (137-145) mmol/L Carbon Dioxide 20 L (22-30) mmol/L BUN 36 H (9-20) mg/dL Creatinine 1.26 H (0.66-1.25) mg/dL Albumin 3.2 L (3.5-5.0) g/dL
[2024-08-01] MEDS: metroNIDAZOLE-NS PMX 500 MG in SALINE 1 100ML.BAG IVPB SCH (18:05)
[2024-08-01 18:38] LABS: HCT 41.9 % (39.0-53.0); HGB 13.8 gm/dL (13.0-17.5); MCH 31.1 pg (25.0-35.0); MCV 94.3 fL (80.0-100.0); Mean Platelet Volume 7.4; Platelet Count 528 k/uL (150-450); RBC 4.44 m/uL (4.30-5.90); RDW 14.8 % (11.5-15.5)
[2024-08-01 18:48] LABS: African American GFR (CKD) 68 (>60 ml/min/1.73 sqM); Anion Gap 11 mmol/L; Blood Urea Nitrogen 34 mg/dL (9-20); Calcium 8.9 mg/dL (8.4-10.2); Carbon Dioxide 20 mmol/L (22-30); Chloride 105 mmol/L (98-107); Glucose 70 mg/dL (74-99); Non-African American GFR(CKD) 59 (>60 ml/min/1.73 sqM); Potassium 4.8 mmol/L (3.5-5.1); Sodium 136 mmol/L (137-145)
[2024-08-02 08:45] LABS: Basophils % (A) 0 %; Eosinophils # (A) 0.1 k/uL (0-0.7); Eosinophils % (A) 1 %; HCT 44.4 % (39.0-53.0); HGB 14.1 gm/dL (13.0-17.5); Hypochromasia Slight; Lymphocytes # (A) 1.8 k/uL (1.0-4.8); Lymphocytes % (A) 15 %; MCH 30.5 pg (25.0-35.0); MCHC 31.7 g/dL (31.0-37.0); MCV 96.2 fL (80.0-100.0); Mean Platelet Volume 6.9; Monocytes # (A) 0.8 k/uL (0-1.0); Monocytes % (A) 7 %; Neutrophils # (A) 9.3 k/uL (1.3-7.7); Neutrophils % (A) 76 %; Platelet Count 504 k/uL (150-450); RBC 4.61 m/uL (4.30-5.90); RDW 14.2 % (11.5-15.5); WBC 12.2 k/uL (3.8-10.6)
[2024-08-02 09:26] LABS: ALT 19 U/L (4-49); AST 24 U/L (17-59); African American GFR (CKD) 80 (>60 ml/min/1.73 sqM); Alkaline Phosphatase 62 U/L (38-126); Anion Gap 12 mmol/L; Blood Urea Nitrogen 23 mg/dL (9-20); Calcium 8.9 mg/dL (8.4-10.2); Carbon Dioxide 17 mmol/L (22-30); Chloride 108 mmol/L (98-107); Glucose 66 mg/dL (74-99); Non-African American GFR(CKD) 69 (>60 ml/min/1.73 sqM); Potassium 4.6 mmol/L (3.5-5.1); Sodium 137 mmol/L (137-145); Total Bilirubin 0.5 mg/dL (0.2-1.3)
--- NOTE | 2024-08-02 13:59 | P.PN ---
Subjective Progress Note Date: 08/02/24 Principal diagnosis: Rectal bleeding This a pleasant 79-year-old male, who is currently at subacute rehab and was brought into the emergency department for bright red blood per rectum. Patient's son-in-law is at the bedside and provides most of the history. Patient currently laying on his side with eyes closed and not much of a historian. Past medical history includes according to family member patient was recently hospitalized for urinary tract infection, sepsis and then developed pneumonia as well as COVID-19 infection, Parkinson's with dementia, heart failure, hypertension, and bladder cancer s/p surgery. Over the last 2 weeks patient has been declining in overall health status. Has not been eating much. Apparently he has been having some diarrhea sounds like since he was on antibiotics. Apparently yesterday afternoon he had some bright red blood streaked with his stool and then around 3:00 the patient's was at the rehab center and patient reportedly had a brief full of bright red blood. He was brought into the emergency department for further evaluation. Apparently last night around 10 or 11:00 he had another bowel movement which was loose with only streaks of blood. He is not on any anticoagulation other than low-dose aspirin. No history of GI bleed. He denies any abdominal pain, nausea or vomiting. Last colonoscopy was [address] Emanuel with findings of multiple colon polyps status post polypectomy which biopsies came back as tubular adenoma, left-sided diverticulosis and internal hemorrhoids. Patient has not had any bowel movement today no rectal bleeding. Hemoglobin on admission was 15.3 repeat today 14.5 patient was noted to have mild leukocytosis on admission with a WBC of 12.4 with a repeat today of 10.2. 08/02/2024 Patient seen and examined today as a follow-up. He still has abdominal pain mostly in the left side of his abdomen. Denies any further bowel movement or rectal bleeding. No nausea or vomiting. He did undergo a CT of the abdomen pelvis yesterday with contrast reporting prominent diverticulosis of the distal colon. Severe wall thickening in the sigmoid colon could reflect underlying acute colitis/diverticulitis. Correlate clinically. Follow-up colonoscopy after treatment is advised to rule out neoplasm at this level due to severe wall thickening. Leukocytosis trending down. Hemoglobin stable at 14.1. He was started on IV Rocephin and Flagyl. Objective - Vital Signs Vital signs: Vital Signs Temp 97.6 F 08/02/24 08:00 Pulse 96 08/02/24 08:00 Resp 16 08/02/24 08:00 BP 156/64 08/02/24 08:00 Pulse Ox 93 L 08/02/24 08:00 FiO2 Intake & Output 08/01/24 08/02/24 08/02/24 18:59 06:59 18:59 Output Total 300 Balance -300 Weight 68.039 kg Output: Urine 300 Other: Voiding Method Indwelling Catheter - Exam General appearance: The patient is alert, but confused, appears in no acute distress. HET: Head is normocephalic and atraumatic. Pupils are equal and reactive. Neck: Supple. Heart: Regular. Lungs: Equal expansion, normal respiratory effort. Abdomen: Soft, left-sided abdominal tenderness, nondistended. Extremities: Normal skin color and turgor. Neurological: Alert oriented to self, some confusion. - Labs CBC & Chem 7: 08/02/24 08:26 08/02/24 08:26 Labs: Abnormal Lab Results - Last 24 Hours (Table) 08/01/24 08/01/24 08/01/24 Range/Units 09:40 18:26 18:26 WBC 11.0 H (3.8-10.6) k/uL Plt Count 522 H 528 H (150-450) k/uL Neutrophils # (1.3-7.7) k/uL Sodium 136 L (137-145) mmol/L Chloride (98-107) mmol/L Carbon Dioxide 20 L (22-30) mmol/L BUN 34 H (9-20) mg/dL Glucose 70 L (74-99) mg/dL Total Protein (6.3-8.2) g/dL Albumin (3.5-5.0) g/dL 08/02/24 08/02/24 Range/Units 08:26 08:26 WBC 12.2 H (3.8-10.6) k/uL Plt Count 504 H (150-450) k/uL Neutrophils # 9.3 H (1.3-7.7) k/uL Sodium (137-145) mmol/L Chloride 108 H (98-107) mmol/L Carbon Dioxide 17 L (22-30) mmol/L BUN 23 H (9-20) mg/dL Glucose 66 L (74-99) mg/dL Total Protein 6.0 L (6.3-8.2) g/dL Albumin 3.0 L (3.5-5.0) g/dL Assessment and Plan (1) Hematochezia Narrative/Plan: 79-year-old male presenting with diarrhea and hematochezia x 1 day duration. Unclear etiology. Patient denies any abdominal pain associated with the bright red blood per rectum. Does have a history of colonoscopy 4 years ago with multiple colon polyps status post polypectomy, left-sided diverticulosis and internal hemorrhoids. Possibility dealing with a diverticular bleed, other possible etiologies include AVM, internal hemorrhoids or other possible etiologies. As of now rectal bleeding has subsided and so he has loose bowel movements. Need to consider possible C. difficile colitis secondary to recent antibiotic treatment for urinary tract infection. No further episodes of hemat ochezia. No further bowel movements. C. difficile sample not collected. CT abdomen pelvis shows prominent diverticulosis in the distal colon and severe wall thickening in the sigmoid colon, likely ischemic colitis however possibility of infectious colitis versus diverticulitis. Continue with IV antibiotics and treat symptomatically. No plans for colonoscopy at this time. Current Visit: Yes Status: Acute Code(s): K92.1 - MELENA SNOMED Code(s): 420041023 Plan: 1. Continue symptomatic and supportive care 2. Daily CBC, transfuse for hemoglobin less than 7 3. Continue clear liquid diet today and advance to full liquid tomorrow 4. Stool C. difficile and stool cultures ordered 5. CT abdomen pelvis reviewed 6. Agree with IV antibiotics, continue antibiotics for 10 days 7. No plans at this time for colonoscopy. Recommend outpatient follow-up for p ossible colonoscopy in 6 to 8 weeks. Thank you for this consultation, we will continue to follow. Dr. Dianna Toro I agree with the dictator's note, documented as a scribe by Melvina Pool.
[2024-08-02] MEDS ORDERED: DEXTROSE 50% SYRINGE 50 ML IVP PRN ×2 (14:05)
--- NOTE | 2024-08-02 14:24 | P.PN ---
Subjective Progress Note Date: 08/02/24 Patient is a 79-year-old male with a history of multiple medical conditions such as Parkinson's disease, bladder cancer status post chemotherapy, hypertension, polymyalgia rheumatica and BPH is presenting to the ER from [facility] with concerns for GI bleed. Patient continues to have altered mentation therefore history was obtained from the who was present at bedside. Patient is currently undergoing subacute rehabilitation for his recent hospitalization due to altered mental status, urosepsis, pneumonia, acute systolic heart failure exacerbation and debility. According to the , she received a call from subacute rehab earlier today as patient was experiencing multiple episodes of loose dark-colored stools. At around 3 PM in the afternoon, patient experienced an episode of bloody bowel movement. No previous episodes of GI bleed. Currently he is not on any blood thinners except low-dose aspirin 81 mg p.o. daily. Patient is also having poor diet with poor oral intake. Otherwise, there are no reports of patient experiencing abdominal pain, nausea, vomiting or hematemesis. Last colonoscopy was performed on 05/15/[address] Emanuel with findings significant for multiple polyps status post polypectomy, mild left colon diverticulosis and internal hemorrhoids. 08-01-24 Patient seen and examined at bedside. Unable to provide history. Friend at bedside states he has been lethargic since arrival last evening, but was at his baseline A+O x 4 before that time. Spoke with GI team will not pursue scope today. Left message and will follow-up with [facility] on the [facility] for clarification of patient history. EMS report of 2 episodes per staff of bright red diarrhea. No history of GI bleed. He was noted to be COVID-positive on 07/23/2024. 08/02/2024 Patient seen and examined at bedside. No events overnight. Spoke with patient who cannot clearly recall events of last few days, however does recall stay in rehab facility. Today he states he has no chest pain, shortness of breath, abdominal pain, nausea. He does state he has history of diverticulitis. He states before rehab stay he was ambulating with a cane but has not done that since rehab stay. GI is following closely. ROS positive pertinent negatives stated above Physical examination: Vital signs reviewed General: Resting comfortably in bed, appears older than stated age, thin appear ing Derm: no unusual rashes/lesions, warm Head: atraumatic, normocephalic, symmetric Eyes: EOMI, anicteric sclera, pupils equal round reactive to light ENT: Nose and ears atraumatic Neck: No cervical lymphadenopathy, trachea midline, supple Mouth: no lip lesion, mucus membranes moist Cardiovascular: S1S2 reg, no murmur, positive dorsalis pedis pulse bilateral, no edema Lungs: CTA bilateral, no rhonchi, no rales, no accessory muscle use Abdominal: Soft, nontender, nondistended, no organomegaly noted Ext: muscle strength 5 out of 5 in all 4 extremities grossly, no gross muscle atrophy, no contractures, Neuro: Alert and orientated, no focal deficits noted Today's findings: LabsWBC 12.2, platelets 504, bicarb 17, BUN 23, creatinine 1.04, glucose 66 CT AP w/ contrast pending Assessment/Plan: Patient is a 79-year-old male with a history of multiple medical conditions such as Parkinson's disease, bladder cancer status post chemotherapy, hypertension, polymyalgia rheumatica and BPH is presenting to the ER from [facility] with concerns for GI bleed. Case was discussed with the Emergency Room provider and decision was made to admit the patient for acute GI bleed. #Acute diverticulitis #Acute GI bleed Patient is hemodynamically stable Initial Hemoglobin 15.3, hematocrit 46.1, monitor CBC stool occult is positive Last colonoscopy on 05/15/2020 showed multiple polyps status post polypectomy, mild left colon diverticulosis and internal hemorrhoids. CT AP w/ contrast showed acute colitis/diverticulitis Continue IV Protonix 40 mg twice daily Hold aspirin 81 mg Order IV D5 with LR at 130 mL/h Continue on ceftriaxone 2 g IV every 24 hours, Flagyl 500 mg IV every 8 hours for 10 days Gastroenterology following, note reviewed, to follow-up with GI outpatient for colonoscopy #Non-anion gap metabolic acidosis, likely due to saline infusion Switch IV NS to IV D5 with LR Monitor glucose and bicarb ACHS protocol, low-dose insulin sliding scale, monitor for hypoglycemia #Acute encephalopathy, likely secondary to underlying infection -Resolving with IV antibiotics #Thrombocytosis likely reactive secondary to underlying acute bleeding Platelet count 526 =>522 => 504 #Acute kidney injury in the setting of poor oral intake, resolved Creatinine 1.26 =>1.47 => 1.19 Baseline creatinine 1.0 Monitor BMP monitor urine output Continue IV fluids as above Chronic conditions: #Parkinson's disease Resume Sinemet 46237 p.o. 3 times daily, resume donepezil 10 mg p.o. daily #Neuropathy resume Neurontin 200 mg p.o. twice daily #CHF Resume Lipitor 40 mg p.o. at bedtime, metoprolol 25 mg p.o. daily #BPH Resume Flomax 0.4 mg p.o. daily DVT prophylaxis: SCDs GI prophylaxis: IV Protonix 40 mg twice daily F: IV D5 with LR at 130 mL/h mL per hour E: Replete as needed N: Clear liquids A: Debility CODE STATUS: No code Discussed with: Patient has advanced directive Anticipated discharge place: Pending clinical course Dictation was produced using [employer] dictation software. Please excuse any grammatical, word or spelling errors. I have seen and evaluated the patient today. Discussed with the resident and agree with the residents finding and plan as documented in the resident's note. Changes highlighted in blue font. Objective - Vital Signs Vital signs: Vital Signs Temp 98.4 F 08/02/24 03:56 Pulse 86 08/02/24 03:03 Resp 16 08/02/24 03:03 BP 124/54 08/02/24 03:03 Pulse Ox 92 L 08/02/24 03:03 FiO2 Intake & Output 08/01/24 08/02/24 08/02/24 18:59 06:59 18:59 Output Total 300 Balance -300 Weight 68.039 kg Output: Urine 300 Other: Voiding Method Indwelling Catheter - Labs CBC & Chem 7: 08/02/24 08:26 08/02/24 08:26 Labs: Abnormal Lab Results - Last 24 Hours (Table) 08/01/24 08/01/24 08/01/24 Range/Units 06:46 09:40 18:26 WBC 11.0 H (3.8-10.6) k/uL Plt Count 522 H 528 H (150-450) k/uL Sodium 134 L (137-145) mmol/L Carbon Dioxide (22-30) mmol/L BUN 39 H (9-20) mg/dL Creatinine 1.47 H (0.66-1.25) mg/dL Glucose 70 L (74-99) mg/dL 08/01/24 Range/Units 18:26 WBC (3.8-10.6) k/uL Plt Count (150-450) k/uL Sodium 136 L (137-145) mmol/L Carbon Dioxide 20 L (22-30) mmol/L BUN 34 H (9-20) mg/dL Creatinine (0.66-1.25) mg/dL Glucose 70 L (74-99) mg/dL
[2024-08-02] MEDS: DEXTROSE 5%-LACTATED RINGERS 1,000 ML IV SCH (15:06)
[2024-08-02 18:33] LABS: Glucose,Whole Blood 75 mg/dL (70-110)
[2024-08-02] MEDS: INSULIN ASPART (NovoLOG) 100 UNIT/ML VIAL SQ SCH (18:36)
[2024-08-02 19:47] LABS: Glucose,Whole Blood 106 mg/dL (70-110)
[2024-08-03 05:42] LABS: Glucose,Whole Blood 100 mg/dL (70-110)
[2024-08-03 08:28] LABS: Basophils # (A) 0.07 X 10*3/uL (0.00-0.10); Basophils % (A) 0.7 %; Eosinophils # (A) 0.21 X 10*3/uL (0.04-0.35); HCT 37.6 % (39.6-50.0); HGB 11.9 g/dL (13.0-17.0); Lymphocytes # (A) 1.64 X 10*3/uL (0.90-5.00); Lymphocytes % (A) 15.9 %; MCH 29.8 pg (27.0-32.0); MCHC 31.6 g/dL (32.0-37.0); Mean Platelet Volume 9.8 FL (9.5-12.2); Monocytes # (A) 1.27 X 10*3/uL (0.20-1.00); Monocytes % (A) 12.3 %; NRBC Per 100 WBC 0 X 10*3/uL (0.00-0.01); Neutrophils # (A) 6.95 X 10*3/uL (1.80-7.70); Neutrophils % (A) 67.4 %; Platelet Count 426 X 10*3/uL (140-440); WBC 10.32 X 10*3/uL (4.50-10.00)
[2024-08-03 08:32] LABS: ALT 6 U/L (10-49); AST 17 U/L (14-35); Albumin 2.7 g/dL (3.8-4.9); Albumin/Globulin Ratio 1.08 Ratio (1.60-3.17); Alkaline Phosphatase 54 U/L (41-126); BUN/Creat Ratio 13.89 Ratio (12.00-20.00); Blood Urea Nitrogen 12.5 mg/dL (9.0-27.0); Calcium 8.6 mg/dL (8.7-10.3); Carbon Dioxide 23.5 mmol/L (21.6-31.8); Chloride 107 mmol/L (96-109); Globulin 2.5 g/dL (1.6-3.3); Glucose 104 mg/dL (70-110); Potassium 4.1 mmol/L (3.5-5.5); Sodium 138 mmol/L (135-145); Total Bilirubin 0.2 mg/dL (0.3-1.2); Total Protein 5.2 g/dL (6.2-8.2)
--- NOTE | 2024-08-03 10:24 | P.PN ---
Subjective Progress Note Date: 08/03/24 Principal diagnosis: Rectal bleeding This a pleasant 79-year-old male, who is currently at subacute rehab and was brought into the emergency department for bright red blood per rectum. Patient's son-in-law is at the bedside and provides most of the history. Patient currently laying on his side with eyes closed and not much of a historian. Past medical history includes according to family member patient was recently hospitalized for urinary tract infection, sepsis and then developed pneumonia as well as COVID-19 infection, Parkinson's with dementia, heart failure, hypertension, and bladder cancer s/p surgery. Over the last 2 weeks patient has been declining in overall health status. Has not been eating much. Apparently he has been having some diarrhea sounds like since he was on antibiotics. Apparently yesterday afternoon he had some bright red blood streaked with his stool and then around 3:00 the patient's was at the rehab center and patient reportedly had a brief full of bright red blood. He was brought into the emergency department for further evaluation. Apparently last night around 10 or 11:00 he had another bowel movement which was loose with only streaks of blood. He is not on any anticoagulation other than low-dose aspirin. No history of GI bleed. He denies any abdominal pain, nausea or vomiting. Last colonoscopy was [address] Emanuel with findings of multiple colon polyps status post polypectomy which biopsies came back as tubular adenoma, left-sided diverticulosis and internal hemorrhoids. Patient has not had any bowel movement today no rectal bleeding. Hemoglobin on admission was 15.3 repeat today 14.5 patient was noted to have mild leukocytosis on admission with a WBC of 12.4 with a repeat today of 10.2. 08/02/2024 Patient seen and examined today as a follow-up. He still has abdominal pain mostly in the left side of his abdomen. Denies any further bowel movement or rectal bleeding. No nausea or vomiting. He did undergo a CT of the abdomen pelvis yesterday with contrast reporting prominent diverticulosis of the distal colon. Severe wall thickening in the sigmoid colon could reflect underlying acute colitis/diverticulitis. Correlate clinically. Follow-up colonoscopy after treatment is advised to rule out neoplasm at this level due to severe wall thickening. Leukocytosis trending down. Hemoglobin stable at 14.1. He was started on IV Rocephin and Flagyl. 08/03/2024 Patient seen and examined today as a follow-up. States abdominal pain is improved. Tolerating clear liquid diet. No further rectal bleeding or diarrhea. He has been afebrile. He did have a drop in his hemoglobin to 11.9, leukocytosis improving. Objective - Vital Signs Vital signs: Vital Signs Temp 98.4 F 08/03/24 02:00 Pulse 71 08/03/24 02:00 Resp 17 08/03/24 02:00 BP 132/61 08/03/24 02:00 Pulse Ox 93 L 08/03/24 02:00 FiO2 Intake & Output 08/02/24 08/02/24 08/03/24 06:59 18:59 06:59 Intake Total 1928 Output Total 300 Balance -300 1928 Weight 68.039 kg Intake: Intake, IV Titration 1560 Amount Sodium Chloride 0.9% 1, 1560 000 ml @ 130 mls/hr IV . Q[facility]M [facility] Rx#:[id number] Oral 368 Output: Urine 300 Other: Voiding Method Indwelling Catheter Indwelling Catheter Indwelling Catheter - Exam General appearance: The patient is alert, but confused, appears in no acute distress. HET: Head is normocephalic and atraumatic. Pupils are equal and reactive. Neck: Supple. Heart: Regular. Lungs: Equal expansion, normal respiratory effort. Abdomen: Soft, nontender, nondistended. Extremities: Normal skin color and turgor. Neurological: Alert oriented to self, some confusion. - Labs CBC & Chem 7: 08/03/24 05:13 08/03/24 05:13 Labs: Abnormal Lab Results - Last 24 Hours (Table) 08/02/24 08/02/24 Range/Units 08:26 08:26 WBC 12.2 H (3.8-10.6) k/uL Plt Count 504 H (150-450) k/uL Neutrophils # 9.3 H (1.3-7.7) k/uL Chloride 108 H (98-107) mmol/L Carbon Dioxide 17 L (22-30) mmol/L BUN 23 H (9-20) mg/dL Glucose 66 L (74-99) mg/dL Total Protein 6.0 L (6.3-8.2) g/dL Albumin 3.0 L (3.5-5.0) g/dL Assessment and Plan (1) Hematochezia Narrative/Plan: 79-year-old male presenting with diarrhea and hematochezia x 1 day duration. Unclear etiology. Patient denies any abdominal pain associated with the bright red blood per rectum. Does have a history of colonoscopy 4 years ago with multiple colon polyps status post polypectomy, left-sided diverticulosis and internal hemorrhoids. Possibility dealing with a diverticular bleed, other possible etiologies include AVM, internal hemorrhoids or other possible etiologi es. As of now rectal bleeding has subsided and so he has loose bowel movements. Need to consider possible C. difficile colitis secondary to recent antibiotic treatment for urinary tract infection. No further episodes of hematochezia. No further bowel movements. C. difficile sample not collected. CT abdomen pelvis shows prominent diverticulosis in the distal colon and severe wall thickening in the sigmoid colon, likely ischemic colitis however possibility of infectious colitis versus diverticulitis. Continue with IV antibiotics and treat symptomatically. No plans for colonoscopy at this time. Current Visit: Yes Status: Acute Code(s): K92.1 - MELENA SNOMED Code(s): 323793491 (2) Colitis Narrative/Plan: Possible diverticulitis versus infectious colitis's/ischemic colitis. Continue antibiotics Current Visit: Yes Status: Acute Code(s): K52.9 - NONINFECTIVE GASTROENTERITIS AND COLITIS, UNSPECIFIED SNOMED Code(s): 21557492 Plan: 1. Continue symptomatic and supportive care 2. Advance to full liquid diet, then advance as tolerated 3. Continue antibiotics for 10 days 7. No plans at this time for colonoscopy. Recommend outpatient follow-up for possible colonoscopy in 6 to 8 weeks. Thank you for this consultation, anticipate discharge in the next 24 hours. Gastroenterology will sign off at this time. Dr. Dianna Toro I agree with the dictator's note, documented as a scribe by Melvina Pool.
[2024-08-03 11:50] LABS: Glucose,Whole Blood 136 mg/dL (70-110)
--- NOTE | 2024-08-03 14:14 | P.PN ---
Subjective Progress Note Date: 08/03/24 Patient is a 79-year-old male with a history of multiple medical conditions such as Parkinson's disease, bladder cancer status post chemotherapy, hypertension, polymyalgia rheumatica and BPH is presenting to the ER from [facility] with concerns for GI bleed. Patient continues to have altered mentation therefore history was obtained from the who was present at bedside. Patient is currently undergoing subacute rehabilitation for his recent hospitalization due to altered mental status, urosepsis, pneumonia, acute systolic heart failure exacerbation and debility. According to the , she received a call from subacute rehab earlier today as patient was experiencing multiple episodes of loose dark-colored stools. At around 3 PM in the afternoon, patient experienced an episode of bloody bowel movement. No previous episodes of GI bleed. Currently he is not on any blood thinners except low-dose aspirin 81 mg p.o. daily. Patient is also having poor diet with poor oral intake. Otherwise, there are no reports of patient experiencing abdominal pain, nausea, vomiting or hematemesis. Last colonoscopy was performed on 05/15/[address] Emanuel with findings significant for multiple polyps status post polypectomy, mild left colon diverticulosis and internal hemorrhoids. 08-01-24 Patient seen and examined at bedside. Unable to provide history. Friend at bedside states he has been lethargic since arrival last evening, but was at his baseline A+O x 4 before that time. Spoke with GI team will not pursue scope today. Left message and will follow-up with [facility] on the [facility] for clarification of patient history. EMS report of 2 episodes per staff of bright red diarrhea. No history of GI bleed. He was noted to be COVID-positive on 07/23/2024. 08/02/2024 Patient seen and examined at bedside. No events overnight. Spoke with patient who cannot clearly recall events of last few days, however does recall stay in rehab facility. Today he states he has no chest pain, shortness of breath, abdominal pain, nausea. He does state he has history of diverticulitis. He states before rehab stay he was ambulating with a cane but has not done that since rehab stay. GI is following closely. 08/03/2024patient seen and examined at bedside. No events overnight. Clear mentation, denies abdominal pain. He does attest to having bowel movement, but continues to have poor appetite. PT OT, speech therapy to assess. ROS positive pertinent negatives stated above Physical examination: Vital signs reviewed General: Resting comfortably in bed, appears older than stated age, thin appearing Derm: no unusual rashes/lesions, warm Head: atraumatic, normocephalic, symmetric Eyes: EOMI, anicteric sclera, pupils equal round reactive to light ENT: Nose and ears atraumatic Neck: No cervical lymphadenopathy, trachea midline, supple Mouth: no lip lesion, mucus membranes moist Cardiovascular: S1S2 reg, no murmur, positive dorsalis pedis pulse bilateral, no edema Lungs: CTA bilateral, no rhonchi, no rales, no accessory muscle use Abdominal: Soft, generalized tenderness, nondistended, no organomegaly noted Ext: muscle strength 5 out of 5 in all 4 extremities grossly, no gross muscle atrophy, no contractures, Neuro: Alert and orientated, no focal deficits noted Today's findings: LabsWBC 10.3, hemoglobin 11.9, sodium 138, potassium 4 point, creatinine 0.9, glucose 104 Assessment/Plan: Patient is a 79-year-old male with a history of multiple medical conditions such as Parkinson's disease, bladder cancer status post chemotherapy, hypertension, polymyalgia rheumatica and BPH is presenting to the ER from [facility] with concerns for GI bleed. Case was discussed with the Emergency Room provider and decision was made to admit the patient for acute GI bleed. #Acute diverticulitis #Acute GI bleed Patient is hemodynamically stable Initial Hemoglobin 15.3, hematocrit 46.1, monitor CBC stool occult is positive Last colonoscopy on 05/15/2020 showed multiple polyps status post polypectomy, mild left colon diverticulosis and internal hemorrhoids. CT AP w/ contrast showed acute colitis/diverticulitis Continue IV Protonix 40 mg twice daily Hold aspirin 81 mg Continue IV D5 with LR at 130 mL/h Continue on ceftriaxone 2 g IV every 24 hours, Flagyl 500 mg IV every 8 hours for 10 days Gastroenterology following, note reviewed, to follow-up with GI outpatient for colonoscopy #Non-anion gap metabolic acidosis, likely due to saline infusion, resolved Switch IV NS to IV D5 with LR Monitor glucose and bicarb ACHS protocol, low-dose insulin sliding scale, monitor for hypoglycemia #Acute encephalopathy, likely secondary to underlying infection -Resolving with IV antibiotics #Thrombocytosis likely reactive secondary to underlying acute bleeding Platelet count 526 =>522 => 504 #Acute kidney injury in the setting of poor oral intake, resolved Creatinine 1.26 =>1.47 => 1.19 Baseline creatinine 1.0 Monitor BMP monitor urine output Continue IV fluids as above Chronic conditions: #Parkinson's disease Resume Sinemet 65842 p.o. 3 times daily, resume donepezil 10 mg p.o. daily #Neuropathy resume Neurontin 200 mg p.o. twice daily #CHF Resume Lipitor 40 mg p.o. at bedtime, metoprolol 25 mg p.o. daily #BPH Resume Flomax 0.4 mg p.o. daily DVT prophylaxis: SCDs GI prophylaxis: IV Protonix 40 mg twice daily F: IV D5 with LR at 130 mL/h mL per hour E: Replete as needed N: Clear liquids A: Debility CODE STATUS: No code Discussed with: Patient has advanced directive Anticipated discharge place: Pending clinical course Dictation was produced using [employer] dictation software. Please excuse any grammatical, word or spelling errors. I have seen and evaluated the patient today. Discussed with the resident and agree with the residents finding and plan as documented in the resident's note. Changes highlighted in blue font. Objective - Vital Signs Vital signs: Vital Signs Temp 98.1 F 08/03/24 07:43 Pulse 72 08/03/24 07:43 Resp 16 08/03/24 07:43 BP 130/62 08/03/24 07:43 Pulse Ox 93 L 08/03/24 07:43 FiO2 Intake & Output 08/02/24 08/03/24 08/03/24 18:59 06:59 18:59 Intake Total 1928 Output Total 300 Balance 1928 -300 Intake: Intake, IV Titration 1560 Amount Sodium Chloride 0.9% 1, 1560 000 ml @ 130 mls/hr IV . Q7H42M [facility] Rx#:[id number] Oral 368 Output: Urine 300 Other: Voiding Method Indwelling Catheter Indwelling Catheter - Labs CBC & Chem 7: 08/03/24 05:13 08/03/24 05:13 Labs: Abnormal Lab Results - Last 24 Hours (Table) 08/02/24 08/02/24 Range/Units 08:26 08:26 WBC 12.2 H (3.8-10.6) k/uL Plt Count 504 H (150-450) k/uL Neutrophils # 9.3 H (1.3-7.7) k/uL Chloride 108 H (98-107) mmol/L Carbon Dioxide 17 L (22-30) mmol/L BUN 23 H (9-20) mg/dL Glucose 66 L (74-99) mg/dL Total Protein 6.0 L (6.3-8.2) g/dL Albumin 3.0 L (3.5-5.0) g/dL
[2024-08-03 14:41] VITALS: BMI 21.5
[2024-08-03 17:26] LABS: Glucose,Whole Blood 116 mg/dL (70-110)
[2024-08-03 20:05] LABS: Glucose,Whole Blood 125 mg/dL (70-110)
[2024-08-04 06:15] LABS: Glucose,Whole Blood 120 mg/dL (70-110)
[2024-08-04 11:59] LABS: Glucose,Whole Blood 151 mg/dL (70-110)
[2024-08-04 12:28] LABS: Basophils # (A) 0.07 X 10*3/uL (0.00-0.10); Basophils % (A) 0.6 %; Eosinophils # (A) 0.32 X 10*3/uL (0.04-0.35); Eosinophils % (A) 2.7 %; HCT 38.3 % (39.6-50.0); HGB 11.8 g/dL (13.0-17.0); Lymphocytes # (A) 1.29 X 10*3/uL (0.90-5.00); MCH 29.6 pg (27.0-32.0); MCHC 30.8 g/dL (32.0-37.0); MCV 96.2 FL (80.0-97.0); Mean Platelet Volume 10.3 FL (9.5-12.2); Monocytes # (A) 1.47 X 10*3/uL (0.20-1.00); Monocytes % (A) 12.5 %; NRBC Per 100 WBC 0 X 10*3/uL (0.00-0.01); Neutrophils # (A) 8.39 X 10*3/uL (1.80-7.70); Neutrophils % (A) 71.4 %; Platelet Count 354 X 10*3/uL (140-440); RBC 3.98 X 10*6/uL (4.40-5.60); RDW 14.8 % (11.5-14.5); WBC 11.75 X 10*3/uL (4.50-10.00)
[2024-08-04 12:29] LABS: ALT 8 U/L (10-49); AST 14 U/L (14-35); Albumin 2.6 g/dL (3.8-4.9); Albumin/Globulin Ratio 1.13 Ratio (1.60-3.17); Alkaline Phosphatase 52 U/L (41-126); BUN/Creat Ratio 8.25 Ratio (12.00-20.00); Blood Urea Nitrogen 6.6 mg/dL (9.0-27.0); Calcium 8.4 mg/dL (8.7-10.3); Carbon Dioxide 22.7 mmol/L (21.6-31.8); Chloride 110 mmol/L (96-109); Globulin 2.3 g/dL (1.6-3.3); Glucose 122 mg/dL (70-110); Potassium 3.8 mmol/L (3.5-5.5); Sodium 142 mmol/L (135-145); Total Bilirubin 0.3 mg/dL (0.3-1.2); Total Protein 4.9 g/dL (6.2-8.2)
[2024-08-04 17:12] LABS: Glucose,Whole Blood 126 mg/dL (70-110)
--- NOTE | 2024-08-04 17:32 | P.PN ---
Subjective Progress Note Date: 08/04/24 Patient is a 79-year-old male with a history of multiple medical conditions such as Parkinson's disease, bladder cancer status post chemotherapy, hypertension, polymyalgia rheumatica and BPH is presenting to the ER from [facility] with concerns for GI bleed. Patient continues to have altered mentation therefore history was obtained from the who was present at bedside. Patient is currently undergoing subacute rehabilitation for his recent hospitalization due to altered mental status, urosepsis, pneumonia, acute systolic heart failure exacerbation and debility. According to the , she received a call from subacute rehab earlier today as patient was experiencing multiple episodes of loose dark-colored stools. At around 3 PM in the afternoon, patient experienced an episode of bloody bowel movement. No previous episodes of GI bleed. Currently he is not on any blood thinners except low-dose aspirin 81 mg p.o. daily. Patient is also having poor diet with poor oral intake. Otherwise, there are no reports of patient experiencing abdominal pain, nausea, vomiting or hematemesis. Last colonoscopy was performed on 05/15/[address] Emanuel with findings significant for multiple polyps status post polypectomy, mild left colon diverticulosis and internal hemorrhoids. 08-01-24 Patient seen and examined at bedside. Unable to provide history. Friend at bedside states he has been lethargic since arrival last evening, but was at his baseline A+O x 4 before that time. Spoke with GI team will not pursue scope today. Left message and will follow-up with [facility] on the [facility] [place] for clarification of patient history. EMS report of 2 episodes per staff of bright red diarrhea. No history of GI bleed. He was noted to be COVID-positive on 07/23/2024. 08/02/2024 Patient seen and examined at bedside. No events overnight. Spoke with patient who cannot clearly recall events of last few days, however does recall stay in rehab facility. Today he states he has no chest pain, shortness of breath, abdominal pain, nausea. He does state he has history of diverticulitis. He states before rehab stay he was ambulating with a cane but has not done that since rehab stay. GI is following closely. 08/03/2024patient seen and examined at bedside. No events overnight. Clear mentation, denies abdominal pain. He does attest to having bowel movement, but continues to have poor appetite. PT OT, speech therapy to assess. 08/04/2024patient seen and examined at bedside. No acute events overnight. Patient having some oral intake, with bowel movement. No complaints of pain at this time. [facility] on discharge. ROS positive pertinent negatives stated above Physical examination: Vital signs reviewed General: Resting comfortably in bed, appears older than stated age, thin appearing Derm: no unusual rashes/lesions, warm Head: atraumatic, normocephalic, symmetric Eyes: EOMI, anicteric sclera, pupils equal round reactive to light ENT: Nose and ears atraumatic Neck: No cervical lymphadenopathy, trachea midline, supple Mouth: no lip lesion, mucus membranes moist Cardiovascular: S1S2 reg, no murmur, positive dorsalis pedis pulse bilateral, no edema Lungs: CTA bilateral, no rhonchi, no rales, no accessory muscle use Abdominal: Soft, nontender, nondistended, no organomegaly noted Ext: muscle strength 5 out of 5 in all 4 extremities grossly, no gross muscle atrophy, no contractures, Neuro: Alert and orientated, no focal deficits noted Today's findings: LabsWBC 11.75 with left shift, hemoglobin 11.8, sodium 142, potassium 3.8, BUN 6.6, glucose 122 Assessment/Plan: Patient is a 79-year-old male with a history of multiple medical conditions such as Parkinson's disease, bladder cancer status post chemotherapy, hypertension, polymyalgia rheumatica and BPH is presenting to the ER from [facility] with concerns for GI bleed. Case was discussed with the Emergency Room provider and decision was made to admit the patient for acute GI bleed. #Acute diverticulitis #Acute GI bleed Patient is hemodynamically stable Initial Hemoglobin 15.3, hematocrit 46.1, monitor CBC stool occult is positive Last colonoscopy on 05/15/2020 showed multiple polyps status post polypectomy, mild left colon diverticulosis and internal hemorrhoids. CT AP w/ contrast showed acute colitis/diverticulitis Continue IV Protonix 40 mg twice daily Hold aspirin 81 mg Continue IV D5 with LR at 130 mL/h Continue on ceftriaxone 2 g IV every 24 hours, Flagyl 500 mg IV every 8 hours for 10 days versus Flagyl Gastroenterology following, note reviewed, to follow-up with GI outpatient for colonoscopy #Non-anion gap metabolic acidosis, likely due to saline infusion, resolved Switch IV NS to IV D5 with LR Monitor glucose and bicarb ACHS protocol, low-dose insulin sliding scale, monitor for hypoglycemia #Acute encephalopathy, likely secondary to underlying infection -Resolving with IV antibiotics #Thrombocytosis likely reactive secondary to underlying acute bleeding Platelet count 526 =>522 => 504 #Acute kidney injury in the setting of poor oral intake, resolved Creatinine 1.26 =>1.47 => 1.19 Baseline creatinine 1.0 Monitor BMP monitor urine output Continue IV fluids as above Chronic conditions: #Parkinson's disease Resume Sinemet 63010 p.o. 3 times daily, resume donepezil 10 mg p.o. daily #Neuropathy resume Neurontin 200 mg p.o. twice daily #CHF Resume Lipitor 40 mg p.o. at bedtime, metoprolol 25 mg p.o. daily #BPH Resume Flomax 0.4 mg p.o. daily DVT prophylaxis: SCDs GI prophylaxis: IV Protonix 40 mg twice daily F: IV D5 with LR at 130 mL/h mL per hour E: Replete as needed N: Clear liquids A: Debility CODE STATUS: No code Discussed with: Patient has advanced directive Anticipated discharge place: Pending clinical course Dictation was produced using [employer] dictation software. Please excuse any grammatical, word or spelling errors. I have seen and evaluated the patient today. Discussed with the resident and agree with the residents finding and plan as documented in the resident's note. Changes highlighted in blue font. Objective - Vital Signs Vital signs: Vital Signs Temp 97.3 F L 08/04/24 07:39 Pulse 69 08/04/24 07:39 Resp 17 08/04/24 07:39 BP 169/74 08/04/24 07:39 Pulse Ox 92 L 08/04/24 07:39 FiO2 Intake & Output 08/03/24 08/04/24 08/04/24 18:59 06:59 18:59 Output Total 526 701 Balance -526 -701 Weight 68.039 kg Output: Urine 525 700 Stool 1 1 Other: Voiding Method Indwelling Catheter Indwelling Catheter # Bowel Movements 1 - Labs CBC & Chem 7: 08/04/24 05:26 08/04/24 05:26 Labs: Abnormal Lab Results - Last 24 Hours (Table) 08/03/24 08/03/24 08/03/24 Range/Units 11:49 17:23 20:03 POC Glucose (mg/dL) 136 H 116 H 125 H (70-110) mg/dL 08/04/24 Range/Units 06:14 POC Glucose (mg/dL) 120 H (70-110) mg/dL
[2024-08-04 20:18] LABS: Glucose,Whole Blood 171 mg/dL (70-110)
[2024-08-05 05:45] LABS: Glucose,Whole Blood 120 mg/dL (70-110)
[2024-08-05 08:27] LABS: Basophils % (A) 0 %; Eosinophils # (A) 0.3 k/uL (0-0.7); Eosinophils % (A) 3 %; HCT 37.7 % (39.0-53.0); HGB 12.2 gm/dL (13.0-17.5); Lymphocytes # (A) 1.3 k/uL (1.0-4.8); Lymphocytes % (A) 10 %; MCH 30.4 pg (25.0-35.0); MCHC 32.4 g/dL (31.0-37.0); MCV 93.8 fL (80.0-100.0); Mean Platelet Volume 7.3; Monocytes # (A) 0.8 k/uL (0-1.0); Monocytes % (A) 6 %; Neutrophils # (A) 10.2 k/uL (1.3-7.7); Neutrophils % (A) 79 %; Platelet Count 349 k/uL (150-450); RBC 4.02 m/uL (4.30-5.90); RDW 14.4 % (11.5-15.5); WBC 12.9 k/uL (3.8-10.6)
[2024-08-05 08:53] LABS: ALT 10 U/L (4-49); AST 15 U/L (17-59); African American GFR (CKD) >90 (>60 ml/min/1.73 sqM); Albumin 2.2 g/dL (3.5-5.0); Albumin/Globulin Ratio 0.8; Alkaline Phosphatase 57 U/L (38-126); Anion Gap 3 mmol/L; Blood Urea Nitrogen 5 mg/dL (9-20); Calcium 8.5 mg/dL (8.4-10.2); Carbon Dioxide 28 mmol/L (22-30); Chloride 103 mmol/L (98-107); Globulin 2.6 g/dL; Glucose 127 mg/dL (74-99); Non-African American GFR(CKD) >90 (>60 ml/min/1.73 sqM); Potassium 3.6 mmol/L (3.5-5.1); Sodium 134 mmol/L (137-145); Total Bilirubin 0.4 mg/dL (0.2-1.3); Total Protein 4.8 g/dL (6.3-8.2)
[2024-08-05 12:31] LABS: Glucose,Whole Blood 123 mg/dL (70-110)
--- NOTE | 2024-08-05 15:33 | P.PN ---
Subjective Progress Note Date: 08/05/24 No new complaints today, no acute events overnight. Gen: In NAD, non-toxic HEENT: normocephalic, atraumatic, hearing acuity is intant, mucous membranes moist CVS: perfusing all extremities well, no pitting edema, Respiratory: symmetric chest expansion, no accessory muscle use, GI: soft, NTTP, ND, : no suprapubic tenderness, no CVA tenderness MSK/Derm: no rashes, cyanosis Neuro: CN II-XII intact, no motor weakness, Psych: cooperative, euthymic mood, judgment and insight is intact Hospital course: Patient is a 79-year-old male with a history of multiple medical conditions such as Parkinson's disease, bladder cancer status post chemotherapy, hypertension, polymyalgia rheumatica and BPH is presenting to the ER from [facility] with concerns for GI bleed. Patient continues to have altered mentation therefore history was obtained from the who was present at bedside. Patient is currently undergoing subacute rehabilitation for his recent hospitalization due to altered mental status, urosepsis, pneumonia, acute systolic heart failure exacerbation and debility. According to the , she received a call from subacute rehab earlier today as patient was experiencing multiple episodes of loose dark-colored stools. At around 3 PM in the afternoon, patient experienced an episode of bloody bowel movement. No previous episodes of GI bleed. Currently he is not on any blood thinners except low-dose aspirin 81 mg p.o. daily. Patient is also having poor diet with poor oral intake. Otherwise, there are no reports of patient experiencing abdominal pain, nausea, vomiting or hematemesis. Last colonoscopy was performed on 05/15/[address] Emanuel with findings significant for multiple polyps status post polypectomy, mild left colon diverticulosis and internal hemorrhoids. 08-01-24 Patient seen and examined at bedside. Unable to provide history. Friend at bedside states he has been lethargic since arrival last evening, but was at his baseline A+O x 4 before that time. Spoke with GI team will not pursue scope today. Left message and will follow-up with [facility] on the [facility] for clarification of patient history. EMS report of 2 episodes per staff of bright red diarrhea. No history of GI bleed. He was noted to be COVID-positive on 07/23/2024. 08/02/2024 Patient seen and examined at bedside. No events overnight. Spoke with patient who cannot clearly recall events of last few days, however does recall stay in rehab facility. Today he states he has no chest pain, shortness of breath, abdominal pain, nausea. He does state he has history of diverticulitis. He states before rehab stay he was ambulating with a cane but has not done that since rehab stay. GI is following closely. 08/03/2024patient seen and examined at bedside. No events overnight. Clear mentation, denies abdominal pain. He does attest to having bowel movement, but continues to have poor appetite. PT OT, speech therapy to assess. 08/04/2024patient seen and examined at bedside. No acute events overnight. Patient having some oral intake, with bowel movement. No complaints of pain at this time. [facility] versus [facility] on discharge. Assessment/Plan: Patient is a 79-year-old male with a history of multiple medical conditions such as Parkinson's disease, bladder cancer status post chemotherapy, hypertension, polymyalgia rheumatica and BPH is presenting to the ER from [facility] with concerns for GI bleed. Case was discussed with the Emergency Room provider and decision was made to admit the patient for acute GI bleed. #Acute diverticulitis #Acute GI bleed Patient is hemodynamically stable Initial Hemoglobin 15.3, hematocrit 46.1, monitor CBC stool occult is positive Last colonoscopy on 05/15/2020 showed multiple polyps status post polypectomy, mild left colon diverticulosis and internal hemorrhoids. CT AP w/ contrast showed acute colitis/diverticulitis Continue IV Protonix 40 mg twice daily Hold aspirin 81 mg Continue IV D5 with LR at 130 mL/h Continue on ceftriaxone 2 g IV every 24 hours, Flagyl 500 mg IV every 8 hours for 10 days versus Flagyl Gastroenterology following, note reviewed, to follow-up with GI outpatient for colonoscopy #Non-anion gap metabolic acidosis, likely due to saline infusion, resolved Switch IV NS to IV D5 with LR Monitor glucose and bicarb ACHS protocol, low-dose insulin sliding scale, monitor for hypoglycemia #Acute encephalopathy, likely secondary to underlying infection -Resolving with IV antibiotics #Thrombocytosis likely reactive secondary to underlying acute bleeding Platelet count 526 =>522 => 504 #Acute kidney injury in the setting of poor oral intake, resolved Creatinine 1.26 =>1.47 => 1.19 Baseline creatinine 1.0 Monitor BMP monitor urine output Continue IV fluids as above Chronic conditions: #Parkinson's disease Resume Sinemet 24944 p.o. 3 times daily, resume donepezil 10 mg p.o. daily #Neuropathy resume Neurontin 200 mg p.o. twice daily #CHF Resume Lipitor 40 mg p.o. at bedtime, metoprolol 25 mg p.o. daily #BPH Resume Flomax 0.4 mg p.o. daily DVT prophylaxis: SCDs GI prophylaxis: IV Protonix 40 mg twice daily F: IV D5 with LR at 130 mL/h mL per hour E: Replete as needed N: Clear liquids A: Debility CODE STATUS: No code Discussed with: Patient has advanced directive Anticipated discharge place: Pending clinical course Dictation was produced using [employer] dictation software. Please excuse any grammatical, word or spelling errors. Objective - Vital Signs Vital signs: Vital Signs Temp 98.0 F 08/05/24 14:50 Pulse 71 08/05/24 14:50 Resp 16 08/05/24 14:50 BP 156/75 08/05/24 14:50 Pulse Ox 95 08/05/24 14:50 FiO2 Intake & Output 08/04/24 08/05/24 08/05/24 18:59 06:59 18:59 Output Total 1 2600 1 Balance -1 -2600 -1 Output: Urine 2600 Stool 1 1 Other: Voiding Method Indwelling Catheter Indwelling Catheter Indwelling Catheter - Labs CBC & Chem 7: 08/05/24 07:57 08/05/24 07:57 Labs: Abnormal Lab Results - Last 24 Hours (Table) 08/04/24 08/04/24 08/05/24 Range/Units 17:11 20:17 05:34 WBC (3.8-10.6) k/uL RBC (4.30-5.90) m/uL Hgb (13.0-17.5) gm/dL Hct (39.0-53.0) % Neutrophils # (1.3-7.7) k/uL Sodium (137-145) mmol/L BUN (9-20) mg/dL Glucose (74-99) mg/dL POC Glucose (mg/dL) 126 H 171 H 120 H (70-110) mg/dL AST (17-59) U/L Total Protein (6.3-8.2) g/dL Albumin (3.5-5.0) g/dL 08/05/24 08/05/24 08/05/24 Range/Units 07:57 07:57 12:30 WBC 12.9 H (3.8-10.6) k/uL RBC 4.02 L (4.30-5.90) m/uL Hgb 12.2 L (13.0-17.5) gm/dL Hct 37.7 L (39.0-53.0) % Neutrophils # 10.2 H (1.3-7.7) k/uL Sodium 134 L (137-145) mmol/L BUN 5 L (9-20) mg/dL Glucose 127 H (74-99) mg/dL POC Glucose (mg/dL) 123 H (70-110) mg/dL AST 15 L (17-59) U/L Total Protein 4.8 L (6.3-8.2) g/dL Albumin 2.2 L (3.5-5.0) g/dL Microbiology - Last 24 Hours (Table) 08/03/24 12:11 Stool Culture - Preliminary Stool
[2024-08-05 17:06] LABS: Glucose,Whole Blood 101 mg/dL (70-110)
[2024-08-05 20:13] LABS: Glucose,Whole Blood 158 mg/dL (70-110)
[2024-08-05] MEDS: ZINC OXIDE PASTE (Z-GUARD) 1 APPLIC TOPICAL PRN (21:06)
[2024-08-06 05:42] LABS: Glucose,Whole Blood 114 mg/dL (70-110)
[2024-08-06 09:06] LABS: ALT 10 U/L (10-49); AST 16 U/L (14-35); Albumin 2.3 g/dL (3.8-4.9); Alkaline Phosphatase 53 U/L (41-126); BUN/Creat Ratio 7.14 Ratio (12.00-20.00); Calcium 8.3 mg/dL (8.7-10.3); Carbon Dioxide 25.3 mmol/L (21.6-31.8); Chloride 105 mmol/L (96-109); Globulin 2.3 g/dL (1.6-3.3); Glucose 114 mg/dL (70-110); Potassium 3.6 mmol/L (3.5-5.5); Sodium 138 mmol/L (135-145); Total Bilirubin <0.2 mg/dL (0.3-1.2); Total Protein 4.6 g/dL (6.2-8.2)
[2024-08-06 10:03] LABS: HCT 37.8 % (39.6-50.0); HGB 11.9 g/dL (13.0-17.0); MCH 29.6 pg (27.0-32.0); MCHC 31.5 g/dL (32.0-37.0); Mean Platelet Volume 10.2 FL (9.5-12.2); NRBC Per 100 WBC 0 X 10*3/uL (0.00-0.01); Platelet Count 332 X 10*3/uL (140-440); RBC 4.02 X 10*6/uL (4.40-5.60); RDW 14.6 % (11.5-14.5)
[2024-08-06 10:50] LABS: Basophils # (M) 0.12 X 10*3/uL (0.00-0.10); Eosinophils # (M) 0.36 X 10*3/uL (0.04-0.35); Lymphocytes # (M) 0.97 X 10*3/uL (0.90-5.00); Monocytes # (M) 1.33 X 10*3/uL (0.20-1.00); Neutrophils # (M) 9.32 X 10*3/uL (1.80-7.70); Neutrophils % (M) 77 %
[2024-08-06 12:00] LABS: Glucose,Whole Blood 138 mg/dL (70-110)
--- NOTE | 2024-08-06 15:15 | P.DS ---
Providers Date of admission: 07/31/24 20:56 Discharge diagnoses; #Acute diverticulitis #Acute GI bleed #Non-anion gap metabolic acidosis, likely due to saline infusion #Acute encephalopathy, likely secondary to underlying infection #Thrombocytosis likely reactive secondary to underlying acute bleeding #Acute kidney injury in the setting of poor oral intake, resolved Chronic conditions: #Parkinson's disease #Neuropathy resume Neurontin 200 mg p.o. twice daily #CHF #BPH Hospital course; 79-year-old man with PMH of multiple medical conditions such as Parkinson's, bladder cancer status postchemotherapy, hypertension, polymyalgia rheumatica and BPH presented to the emergency department from [facility] with concern for GI bleed.Patient continues to have altered mentation therefore history was obtained from the who was present at bedside. Patient is currently undergoing subacute rehabilitation for his recent hospitalization due to altered mental status, urosepsis, pneumonia, acute systolic heart failure exacerbation and debility. Initially, he remains unable to provide history how ever friends at bedside stated that he had been lethargic since prior to his arrival and normally is A&O x 4. He was cleared by the GI team. Over the course of his stay, he asserted that he had a bad experience while at [facility] and preferred to not return there. He regained his mentation, and attests to having a bowel movement however continually had poor appetite, possibly secondary to disliking the food. Physical therapy and Occupational Therapy both saw and assessed the patient and determined it would be best if he was discharged to subacute rehab. After discussion with the care team, placement at [facility] was able to be granted today. PHYSICAL EXAMINATION: GENERAL: The patient is alert and oriented x3, not in any acute distress. Well developed, well nourished. HEENT: Pupils are round and equally reacting to light. EOMI. No scleral icterus. No conjunctival pallor. Normocephalic, atraumatic. CARDIOVASCULAR: S1 and S2 present. No murmurs, rubs, or gallops. PULMONARY: Chest is clear to auscultation, no wheezing or crackles. ABDOMEN: Soft, nontender, nondistended, normoactive bowel sounds. No palpable organomegaly. MUSCULOSKELETAL: No joint swelling or deformity. EXTREMITIES: No cyanosis, clubbing, or pedal edema. NEUROLOGICAL: Gross neurological examination did not reveal any focal deficits. SKIN: No rashes. Dictation was produced using [employer] dictation software. please excuse any grammatical, word or spelling errors. I saw and evaluated the patient during the laboy and critical portions of this encounter, and discussed the case in detail with the resident author of this note, I agree with the Assessment and Plan, and my changes, if any, are highlighted in blue. Attending physician: Rylan Figueroa MD Consults: 07/31/24 20:50 Consult Physician Urgent Consulting Provider: Cristina Toro Consult Reason/Comments: acute hematochezia Do you want consulting provider notified?: Yes Primary care physician: [facility] Patient Condition at Discharge: Stable Plan - Discharge Summary New Discharge Prescriptions: New metroNIDAZOLE [Flagyl] 500 mg PO TID 7 Days #21 tab Cefdinir [Omnicef] 300 mg PO BID 7 Days #14 capsule Continue Vit C/E/Zn/Coppr/Lutein/Zeaxan [Preservision Areds 2 Softgel] 1 cap PO DAILY DULoxetine HCL [Cymbalta] 30 mg PO TID Latanoprost/Pf [Latanoprost 0.005% Eye Drop] 1 drop BOTH EYES HS Tamsulosin HCl [Flomax] 0.4 mg PO DAILY Donepezil [Aricept] 10 mg PO DAILY Aspirin 81 mg PO DAILY tab Furosemide [Lasix] 20 mg PO DAILY #30 tab Gabapentin [Neurontin] 200 mg PO BID #6 cap Metoprolol Succinate (ER) [Toprol XL] 25 mg PO DAILY tab Zinc Gluconate [Zinc] 50 mg PO DAILY Mirtazapine 7.5 mg PO HS Cyanocobalamin [Vitamin B-12] 500 mcg PO DAILY Brimonidine Tartrate [Alphagan P 0.2% Ophth Soln] 1 drop BOTH EYES BID Artificial Tears-Hypromellose [Artificial Tear Drops] 1 drop BOTH EYES QID PRN PRN Reason: Dry Eye(S) Carbidopa-Levodopa 25-100 mg [Sinemet 25-100 mg] 1 tab PO TID Cholecalciferol (Vitamin D3) [Vitamin D3 (50 Mcg = 2000 Iu)] 50 mcg PO BID Spironolactone [Aldactone] 25 mg PO DAILY tab Losartan [Cozaar] 25 mg PO DAILY tab Atorvastatin [Lipitor] 40 mg PO HS tab oxyCODONE-APAP 7.5-325MG [Percocet 7.5-325 mg] 1 tab PO Q4H PRN PRN Reason: Pain Ascorbic Acid [Vitamin C] 500 mg PO DAILY Discharge Medication List DULoxetine HCL [Cymbalta] 30 mg PO TID 12/13/18 [History] Vit C/E/Zn/Coppr/Lutein/Zeaxan [Preservision Areds 2 Softgel] 1 cap PO DAILY 12/13/18 [History] Latanoprost/Pf [Latanoprost 0.005% Eye Drop] 1 drop BOTH EYES HS 05/14/20 [History] Tamsulosin HCl [Flomax] 0.4 mg PO DAILY 05/10/22 [History] Brimonidine Tartrate [Alphagan P 0.2% Ophth Soln] 1 drop BOTH EYES BID 06/16/22 [History] Artificial Tears-Hypromellose [Artificial Tear Drops] 1 drop BOTH EYES QID PRN 07/15/24 [History] Carbidopa-Levodopa 25-100 mg [Sinemet 25-100 mg] 1 tab PO TID 07/15/24 [History] Cholecalciferol (Vitamin D3) [Vitamin D3 (50 Mcg = 2000 Iu)] 50 mcg PO BID 07/15/24 [History] Donepezil [Aricept] 10 mg PO DAILY 07/15/24 [History] Aspirin 81 mg PO DAILY tab 07/23/24 [Rx] Atorvastatin [Lipitor] 40 mg PO HS tab 07/23/24 [Rx] Furosemide [Lasix] 20 mg PO DAILY #30 tab 07/23/24 [Rx] Gabapentin [Neurontin] 200 mg PO BID #6 cap 07/23/24 [Rx] Losartan [Cozaar] 25 mg PO DAILY tab 07/23/24 [Rx] Metoprolol Succinate (ER) [Toprol XL] 25 mg PO DAILY tab 07/23/24 [Rx] Spironolactone [Aldactone] 25 mg PO DAILY tab 07/23/24 [Rx] Ascorbic Acid [Vitamin C] 500 mg PO DAILY 07/31/24 [History] Cyanocobalamin [Vitamin B-12] 500 mcg PO DAILY 07/31/24 [History] Mirtazapine 7.5 mg PO HS 07/31/24 [History] Zinc Gluconate [Zinc] 50 mg PO DAILY 07/31/24 [History] oxyCODONE-APAP 7.5-325MG [Percocet 7.5-325 mg] 1 tab PO Q4H PRN 07/31/24 [History] Cefdinir [Omnicef] 300 mg PO BID 7 Days #14 capsule 08/06/24 [Rx] metroNIDAZOLE [Flagyl] 500 mg PO TID 7 Days #21 tab 08/06/24 [Rx] Follow up Appointment(s)/Referral(s): [facility] [Primary Care Provider] - 1-2 days
[2024-08-06 17:18] LABS: Glucose,Whole Blood 107 mg/dL (70-110)
[2024-08-06] MEDS: ARTIFICIAL TEARS-HYPROMELLOSE DROPS 15 ML BTL BOTH EYES PRN (20:33)
[2024-08-06 20:34] VITALS: RESP 18
[2024-08-06 20:40] LABS: Glucose,Whole Blood 90 mg/dL (70-110)
[2024-08-07 06:01] LABS: Glucose,Whole Blood 95 mg/dL (70-110)
--- NOTE | 2024-08-07 12:49 | P.DS ---
Providers Date of admission: 07/31/24 20:56 Discharge diagnoses; #Acute diverticulitis #Acute GI bleed #Non-anion gap metabolic acidosis, likely due to saline infusion #Acute encephalopathy, likely secondary to underlying infection #Thrombocytosis likely reactive secondary to underlying acute bleeding #Acute kidney injury in the setting of poor oral intake, resolved Chronic conditions: #Parkinson's disease #Neuropathy resume Neurontin 200 mg p.o. twice daily #CHF #BPH Hospital course; 79-year-old man with PMH of multiple medical conditions such as Parkinson's, bladder cancer status postchemotherapy, hypertension, polymyalgia rheumatica and BPH presented to the emergency department from [facility] with concern for GI bleed.Patient continues to have altered mentation therefore history was obtained from the who was present at bedside. Patient is currently undergoing subacute rehabilitation for his recent hospitalization due to altered mental status, urosepsis, pneumonia, acute systolic heart failure exacerbation and debility. Initially, he remains unable to provide history how ever friends at bedside stated that he had been lethargic since prior to his arrival and normally is A&O x 4. He was cleared by the GI team. Over the course of his stay, he asserted that he had a bad experience while at [facility] and preferred to not return there. He regained his mentation, and attests to having a bowel movement however continually had poor appetite, possibly secondary to disliking the food. Physical therapy and Occupational Therapy both saw and assessed the patient and determined it would be best if he was discharged to subacute rehab. After discussion with the care team, placement at [facility] was able to be granted today. He will be discharged on 6 days of antibiotics to complete his regimen. PHYSICAL EXAMINATION: GENERAL: The patient is alert and oriented x3, not in any acute distress. Well developed, well nourished. HEENT: Pupils are round and equally reacting to light. EOMI. No scleral icterus. No conjunctival pallor. Normocephalic, atraumatic. CARDIOVASCULAR: S1 and S2 present. No murmurs, rubs, or gallops. PULMONARY: Chest is clear to auscultation, no wheezing or crackles. ABDOMEN: Soft, nontender, nondistended, normoactive bowel sounds. No palpable organomegaly. MUSCULOSKELETAL: No joint swelling or deformity. EXTREMITIES: No cyanosis, clubbing, or pedal edema. NEUROLOGICAL: Gross neurological examination did not reveal any focal deficits. SKIN: No rashes. Dictation was produced using [employer] dictation software. please excuse any grammatical, word or spelling errors. Attending physician: Rylan Figueroa MD Consults: 07/31/24 20:50 Consult Physician Urgent Consulting Provider: Cristina Toro Consult Reason/Comments: acute hematochezia Do you want consulting provider notified?: Yes Primary care physician: [facility] Patient Condition at Discharge: Stable Plan - Discharge Summary New Discharge Prescriptions: New metroNIDAZOLE [Flagyl] 500 mg PO TID 6 Days #18 tab Cefdinir [Omnicef] 300 mg PO BID 6 Days #12 capsule Continue Vit C/E/Zn/Coppr/Lutein/Zeaxan [Preservision Areds 2 Softgel] 1 cap PO DAILY DULoxetine HCL [Cymbalta] 30 mg PO TID Latanoprost/Pf [Latanoprost 0.005% Eye Drop] 1 drop BOTH EYES HS Tamsulosin HCl [Flomax] 0.4 mg PO DAILY Donepezil [Aricept] 10 mg PO DAILY Aspirin 81 mg PO DAILY tab Furosemide [Lasix] 20 mg PO DAILY #30 tab Gabapentin [Neurontin] 200 mg PO BID #6 cap Metoprolol Succinate (ER) [Toprol XL] 25 mg PO DAILY tab Zinc Gluconate [Zinc] 50 mg PO DAILY Mirtazapine 7.5 mg PO HS Cyanocobalamin [Vitamin B-12] 500 mcg PO DAILY Brimonidine Tartrate [Alphagan P 0.2% Ophth Soln] 1 drop BOTH EYES BID Artificial Tears-Hypromellose [Artificial Tear Drops] 1 drop BOTH EYES QID PRN PRN Reason: Dry Eye(S) Carbidopa-Levodopa 25-100 mg [Sinemet 25-100 mg] 1 tab PO TID Cholecalciferol (Vitamin D3) [Vitamin D3 (50 Mcg = 2000 Iu)] 50 mcg PO BID Spironolactone [Aldactone] 25 mg PO DAILY tab Losartan [Cozaar] 25 mg PO DAILY tab Atorvastatin [Lipitor] 40 mg PO HS tab oxyCODONE-APAP 7.5-325MG [Percocet 7.5-325 mg] 1 tab PO Q4H PRN PRN Reason: Pain Ascorbic Acid [Vitamin C] 500 mg PO DAILY Discharge Medication List DULoxetine HCL [Cymbalta] 30 mg PO TID 12/13/18 [History] Vit C/E/Zn/Coppr/Lutein/Zeaxan [Preservision Areds 2 Softgel] 1 cap PO DAILY 12/13/18 [History] Latanoprost/Pf [Latanoprost 0.005% Eye Drop] 1 drop BOTH EYES HS 05/14/20 [History] Tamsulosin HCl [Flomax] 0.4 mg PO DAILY 05/10/22 [History] Brimonidine Tartrate [Alphagan P 0.2% Ophth Soln] 1 drop BOTH EYES BID 06/16/22 [History] Artificial Tears-Hypromellose [Artificial Tear Drops] 1 drop BOTH EYES QID PRN 07/15/24 [History] Carbidopa-Levodopa 25-100 mg [Sinemet 25-100 mg] 1 tab PO TID 07/15/24 [History] Cholecalciferol (Vitamin D3) [Vitamin D3 (50 Mcg = 2000 Iu)] 50 mcg PO BID 07/15/24 [History] Donepezil [Aricept] 10 mg PO DAILY 07/15/24 [History] Aspirin 81 mg PO DAILY tab 07/23/24 [Rx] Atorvastatin [Lipitor] 40 mg PO HS tab 07/23/24 [Rx] Furosemide [Lasix] 20 mg PO DAILY #30 tab 07/23/24 [Rx] Gabapentin [Neurontin] 200 mg PO BID #6 cap 07/23/24 [Rx] Losartan [Cozaar] 25 mg PO DAILY tab 07/23/24 [Rx] Metoprolol Succinate (ER) [Toprol XL] 25 mg PO DAILY tab 07/23/24 [Rx] Spironolactone [Aldactone] 25 mg PO DAILY tab 07/23/24 [Rx] Ascorbic Acid [Vitamin C] 500 mg PO DAILY 07/31/24 [History] Cyanocobalamin [Vitamin B-12] 500 mcg PO DAILY 07/31/24 [History] Mirtazapine 7.5 mg PO HS 07/31/24 [History] Zinc Gluconate [Zinc] 50 mg PO DAILY 07/31/24 [History] oxyCODONE-APAP 7.5-325MG [Percocet 7.5-325 mg] 1 tab PO Q4H PRN 07/31/24 [History] Cefdinir [Omnicef] 300 mg PO BID 6 Days #12 capsule 08/07/24 [Rx] metroNIDAZOLE [Flagyl] 500 mg PO TID 6 Days #18 tab 08/07/24 [Rx] Follow up Appointment(s)/Referral(s): [facility] [Primary Care Provider] - 1-2 days
[2024-08-07 12:50] LABS: Glucose,Whole Blood 108 mg/dL (70-110)
[2024-08-07 14:28] VITALS: BP 141/76; PULSE 66; TEMP 98.8
== END 2024-08-07 16:20 | DRG 378 ==
LOC: EC 16:16 → 3SCARD 20:55 → OBSVTOIN 20:56 → 3SCARD 22:50 → 6NMEDSUR 08-02 02:28
PROVIDERS: ADMIT Internal Medicine; ATTEND Internal Medicine
DX: K57.33 Diverticulitis of large intestine without perforation or abscess with bleeding (principal); E87.20 Acidosis, unspecified; G93.40 Encephalopathy, unspecified; N17.9 Acute kidney failure, unspecified; G20.A1 Parkinson's disease without dyskinesia, without mention of fluctuations; I11.0 Hypertensive heart disease with heart failure; F02.80 Dementia in other diseases classified elsewhere, unspecified severity, without behavioral disturbance, psychotic disturbance, mood disturbance, and anxiety; I50.22 Chronic systolic (congestive) heart failure; D75.839 Thrombocytosis, unspecified; G62.9 Polyneuropathy, unspecified; K52.9 Noninfective gastroenteritis and colitis, unspecified; F17.200 Nicotine dependence, unspecified, uncomplicated; N40.0 Benign prostatic hyperplasia without lower urinary tract symptoms; Z85.51 Personal history of malignant neoplasm of bladder; Z79.82 Long term (current) use of aspirin; Z88.8 Allergy status to other drugs, medicaments and biological substances; Z79.899 Other long term (current) drug therapy; Z86.0101 Personal history of adenomatous and serrated colon polyps; Z86.16 Personal history of COVID-19; Z87.442 Personal history of urinary calculi; Z92.21 Personal history of antineoplastic chemotherapy
CPT/HCPCS: 36415; 74177; 80048; 80053; 82272; 83605; 83735; 84484; 85025; 85027; 85610; 85730; 86850; 86900; 86901; 87045; 87046; 87324; 96361; 96365; 96366; 96375; 96376; 99285